=== PATIENT | female | born 1955 | race Caucasian/White ===

== ENCOUNTER 2017-02-15 11:09 | Observation (INO) | payer OTHER ==
[2017-02-15] MEDS ORDERED: Albuterol/Ipratropium 3.0-0.5 MG/3 ML Neb Soln NEB ONE (11:55)
[2017-02-15] MEDS ORDERED: Albuterol/Ipratropium 3.0-0.5 MG/3 ML Neb Soln ONE (12:08)
[2017-02-15] MEDS ORDERED: Ondansetron 4 MG Tab.DIS PO PRN (12:54)
[2017-02-15] MEDS ORDERED: Sodium Chloride 0.9% 10 ML Syringe FLUSH PRN (12:54)
[2017-02-15] MEDS ORDERED: Temazepam 15 MG Cap PO PRN (12:54)
[2017-02-15] MEDS ORDERED: Loratadine 10 MG Tab PO PRN (12:59)
[2017-02-15] MEDS: Albuterol/Ipratropium 3.0-0.5 MG/3 ML Neb Soln NEB SCH ×3 (13:21→20:42)
[2017-02-15] MEDS: cefTRIAXone 1 GM Vial IVPUSH SCH (13:26)
[2017-02-15] MEDS: Azithromycin 500 MG in Sodium Chloride 0.9% 250 ML IV SCH (13:26)
[2017-02-15 13:39] LABS: CHLORIDE,CL 106 mEq/L (98-106); SODIUM,NA 143 mEq/L (136-145)
[2017-02-15] MEDS: POTASSIUM 20 MEQ PO SCH (17:20)
[2017-02-15] MEDS ORDERED: Potassium Chloride 10 MEQ Tab.ER PO SCH (17:30)
[2017-02-15] MEDS: OMEPRAZOLE 40 MG PO SCH (19:55)
[2017-02-15] MEDS: ADVAIR INH SCH (20:00)
[2017-02-16] MEDS ORDERED: Aspirin 81 MG Tab.EC PO SCH ×2 (08:00→20:00)
[2017-02-16] MEDS: POTASSIUM 20 MEQ PO SCH ×2 (08:48→19:40)
[2017-02-16] MEDS: FUROSEMIDE 20 MG PO SCH (08:49)
[2017-02-16] MEDS: PANTOPRAZOLE 40 MG PO SCH (08:49)
[2017-02-16] MEDS: Multivitamin Tab PO SCH (08:49)
[2017-02-16] MEDS: ADVAIR INH SCH ×2 (08:50→20:06)
[2017-02-16] MEDS: cefTRIAXone 1 GM Vial IVPUSH SCH (08:57)
[2017-02-16] MEDS: Azithromycin 500 MG in Sodium Chloride 0.9% 250 ML IV SCH (08:57)
[2017-02-16] MEDS: Albuterol/Ipratropium 3.0-0.5 MG/3 ML Neb Soln NEB SCH ×4 (10:12→20:06)
--- NOTE | 2017-02-16 10:42 | PN ---
DATE: 02/16/2017 S: Cinda is doing fine. Vital signs have been stable. She has not spiked any temps. Blood pressure is good. She is saturating in the mid 90s to upper 90s on room air. She feels less cough, less shortness of breath. She was up and walking. Some lab work is reviewed. Other than being anemic which is chronic on her, she does have an INR which was elevated at 4.8, and her Coumadin has been on hold. O: GENERAL: On exam, she is pleasant, alert, and cooperative. HEENT: Grossly benign. NECK: Supple. Veins are flat. LUNGS: Sounds are improved with better air movement. Still there is some expiratory wheezing. No rales. CARDIAC: Tones are regular. ABDOMEN: Soft. No peripheral edema is seen. ASSESSMENT: BRONCHITIS WITH ASTHMA EXACERBATION. P: Plan for one more day. We will have her up and ambulating. If she is doing well, home tomorrow. ELVA/DAKOTA /[id number]
[2017-02-16] MEDS: Acetaminophen 325 MG Tab PO PRN ×2 (13:23→22:59)
[2017-02-16] MEDS: OMEPRAZOLE 40 MG PO SCH (19:41)
[2017-02-16] MEDS ORDERED: PHYTONADIONE 100 MCG PO SCH (20:00)
[2017-02-16] MEDS ORDERED: WARFARIN 2.5 MG PO SCH (20:00)
[2017-02-17] MEDS: cefTRIAXone 1 GM Vial IVPUSH SCH (07:48)
[2017-02-17] MEDS: PANTOPRAZOLE 40 MG PO SCH (07:55)
[2017-02-17] MEDS: FUROSEMIDE 20 MG PO SCH (07:55)
[2017-02-17] MEDS: POTASSIUM 20 MEQ PO SCH (07:55)
[2017-02-17] MEDS: Multivitamin Tab PO SCH (07:56)
[2017-02-17] MEDS: Azithromycin 500 MG in Sodium Chloride 0.9% 250 ML IV SCH (07:57)
[2017-02-17 08:06] VITALS: BP 141/92
[2017-02-17] MEDS: ADVAIR INH SCH (08:47)
[2017-02-17] MEDS: Albuterol/Ipratropium 3.0-0.5 MG/3 ML Neb Soln NEB SCH (08:47)
[2017-02-17] MEDS ORDERED: WARFARIN 2.5 MG PO SCH (20:00)
--- NOTE | 2017-02-20 07:21 | DISCH ---
ADMISSION DIAGNOSIS: Asthma exacerbation. DISCHARGE DIAGNOSIS: 1. ASTHMA EXACERBATION. 2. COAGULOPATHY SECONDARY TO COUMADIN USE. HISTORY: The patient is a 61-year-old female, well known to me, with a history of asthma. She also has a recent mitral valve replacement and is anticoagulated for that. She presented to my office with increasing cough, wheezing, and shortness of breath. Workup showed a normal white count, and CRP. Chest x-ray showed no pneumonia. She did have an elevated Coumadin level at 4.88. She was ultimately admitted to the hospital for asthma exacerbation. HOSPITAL COURSE: The patient was put on IV antibiotics. Started on steroids and nebulizers and she had a wonderful response. She has been saturating well and running no temps and for the most part, is up ambulating without any difficulty. She is on DuoNeb twice a day and has finished 3 days of Zithromax, 3 days of Rocephin. We are not going to send her home on any antibiotics or steroids. She will resume her Coumadin. We did hold it while she was here due to her elevated INR. Her home medications will be unchanged. We will see her back in the clinic in 2 weeks for followup. She does have a nebulizer at home should she need it. COMPLICATIONS: During her stay were none. CONSULTATIONS: RT. DISPOSITION: Discharged home. LYNETTE /[id number]
== END 2017-02-17 10:15 | disposition home or self-care (01) ==
LOC: CC.MS 11:09 → UNDOADMOB 11:09 → CC.MS 12:55 → UNDOADMOB 12:55
PROVIDERS: ADMIT Family Medicine; ATTEND Family Medicine
DX: J20.9 Acute bronchitis, unspecified (principal); J45.901 Unspecified asthma with (acute) exacerbation; Z95.2 Presence of prosthetic heart valve; I10 Essential (primary) hypertension; I48.91 Unspecified atrial fibrillation
CPT/HCPCS: 36415; 71020; 80048; 84484; 85025; 85610; 86140; 87070; 87205; 93005; 94640; A9270; J0456; J0696; J7050; 96365; 96366; 96375; 96376; G0378

== ENCOUNTER 2017-08-06 17:19 | Emergency (ER) | payer OTHER ==
[2017-08-06 17:25] VITALS: BP 151/75
--- NOTE | 2017-08-06 17:52 | EDM.PDOC ---
ED HPI GENERAL MEDICAL PROBLEM - General Chief Complaint: General Stated Complaint: (L) wrist injury Time Seen by Provider: 08/06/17 17:25 Source of Information: Reports: Patient History Limitations: Reports: No Limitations - History of Present Illness INITIAL COMMENTS - FREE TEXT/NARRATIVE: Patient tripped and fell while going up the stairs at home. She landed on an outstretched left forearm and now has pain and a wrist deformity. She has abrasions on her right forearm. Patient is on Coumadin for an artificial heart valve. Denies any dizziness or lightheadedness. Denies hitting head or loss of consciousness. 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 (see below) (pt applied dressings to bleeding abrasions on right forearm) Left Wrist Pain Score (Numeric/FACES): 5 - Related Data Allergies Allergy/AdvReac Type Severity Reaction Status Date / Time erythromycin ethylsuccinate Allergy Rash Verified 08/06/17 17:20 [From [facility] Home Meds: Home Meds Cyanocobalamin (Vitamin B-12) [Vitamin B-12] 1,000 mcg PO DAILY 10/23/15 [ History] Multivitamin [Multivitamins] 1 tab PO DAILY 10/23/15 [History] Omeprazole [Prilosec] 40 mg PO BEDTIME 10/23/15 [History] Albuterol Sulfate [Proair Hfa] 2 puff IH Q4H PRN 04/06/16 [History] Pantoprazole [ProTONIX] 40 mg PO ACBREAKFAST 04/06/16 [History] Furosemide [Lasix] 20 mg PO DAILY 06/22/16 [History] Aspirin [Halfprin] 81 mg PO BEDTIME 02/15/17 [History] Fluticasone/Salmeterol [Advair Diskus 500-50] 1 puff INH BID 02/15/17 [History] Loratadine 10 mg PO DAILY PRN 02/15/17 [History] Magnesium 250 mg PO DAILY 02/15/17 [History] Phytonadione [Vitamin K] 100 mcg PO BEDTIME 02/15/17 [History] Potassium Chloride [Klor-Con M20] 30 meq PO BID 02/15/17 [History] Warfarin [Coumadin] 2.5 mg PO MOWEFR #0 02/17/17 [Rx] Warfarin [Coumadin] 5 mg PO SUTUTHSA #0 02/17/17 [Rx] Past Medical History Cardiovascular History: Reports: Afib, Heart Valve Replacement, Pacemaker Other Cardiovascular History: hypertension prior to gastric bypass; has since resolved Respiratory History: Reports: Asthma Other Respiratory History: sleep apnea prior to gastric bypass; has since resolved Gastrointestinal History: Reports: GI Bleed Other Gastrointestinal History: GIB in September 2015 - treated in [place] [facility] History: Reports: None Musculoskeletal History: Reports: Osteoarthritis Other Musculoskeletal History: OA in knees; total knee replacements Hematologic History: Reports: B12 Deficiency, Iron Deficiency Other Hematologic History: Iron infusion in October 2015; B12 supplements since gastric bypass - Infectious Disease History Infectious Disease History: Reports: None - Past Surgical History HEENT Surgical History: Reports: Tonsillectomy GI Surgical History: Reports: Bariatric Procedure Musculoskeletal Surgical History: Reports: Knee Replacement Social & Family History - Family History Family Medical History: Noncontributory - Tobacco Use Smoking Status *Q: Never Smoker Second Hand Smoke Exposure: No - Caffeine Use Caffeine Use: Reports: Coffee - Recreational Drug Use Recreational Drug Use: No ED ROS GENERAL - Review of Systems Review Of Systems: See Below Constitutional: Reports: No Symptoms HEENT: Reports: No Symptoms Respiratory: Reports: No Symptoms Cardiovascular: Reports: No Symptoms Endocrine: Reports: No Symptoms GI/Abdominal: Reports: No Symptoms : Reports: No Symptoms Musculoskeletal: Reports: Arm Pain (pain swelling and deformity left forearm and wrist), Hand Pain, Joint Swelling Skin: Reports: Wound (abrasions and skin tears on right forearm) Neurological: Reports: No Symptoms. Denies: Confusion, Dizziness, Syncope, Difficulty Walking, Weakness Psychiatric: Reports: No Symptoms Hematologic/Lymphatic: Reports: No Symptoms Immunologic: Reports: No Symptoms ED EXAM, GENERAL - Physical Exam Exam: See Below Exam Limited By: No Limitations General Appearance: Alert, WD/WN, No Apparent Distress Eye Exam: Bilateral Eye: EOMI, PERRL Ears: Normal External Exam, Normal Canal, Hearing Grossly Normal, Normal TMs Ear Exam: Bilateral Ear: Auricle Normal, Canal Normal, TM normal Nose: Normal Inspection, Normal Mucosa, No Blood Throat/Mouth: Normal Inspection, Normal Lips, Normal Teeth, Normal Gums, Normal Oropharynx, Normal Voice, No Airway Compromise Head: Atraumatic, Normocephalic Neck: Normal Inspection, Supple, Non-Tender, Full Range of Motion Respiratory/Chest: No Respiratory Distress, Lungs Clear, Normal Breath Sounds, No Accessory Muscle Use, Chest Non-Tender Cardiovascular: Normal Peripheral Pulses, Regular Rate, Rhythm, No Edema, No Gallop, No JVD, No Murmur, No Rub, Other (hsistory of a-fib but rate is regular) Peripheral Pulses: 3+: Radial (R), Femoral (L) GI/Abdominal: Normal Bowel Sounds, Soft, Non-Tender, No Organomegaly, No Distention, No Abnormal Bruit, No Mass (Female) Exam: Deferred Rectal (Female) Exam: Deferred Back Exam: Normal Inspection, Full Range of Motion, NT Extremities: Other (Bilat lower extremities are within normal limits for this patient with no injuries noted. LUE has brusing and deformity left inner distal forearm. Limted range of motion due to pain but CMS intact in left hand. No injuries noted with either shoulder or either elbow. Right forearm has mid and distal forearm abrasions and bruising with several skin tears on the lateral forearm with skin tear edges well approximated. Bleeding is well controlled and CMS intact in right hand.) Neurological: Alert, Oriented, CN II-XII Intact, Normal Cognition, Normal Gait, Normal Reflexes, No Motor/Sensory Deficits Psychiatric: Normal Affect, Normal Mood Skin Exam: Warm, Dry, Intact, Normal Color, No Rash Front/Back Body Diagram: 1 - sin tears and abrasions 2 - skin tears and abrasions Course - Vital Signs Last Recorded V/S: Last Vital Signs Temp 36.2 C 08/06/17 17:22 Pulse 70 08/06/17 17:22 Resp 18 08/06/17 17:22 BP 151/75 H 08/06/17 17:22 Pulse Ox 98 08/06/17 17:22 - Orders/Labs/Meds Orders: Active Orders 24 hr Category Date Time Status Wrist Comp Min 3V Lt [CR] Stat Exams 08/06/17 17:57 Taken Meds: Medications Discontinued Medications Generic Name Dose Route Start Last Admin Trade Name Sue PRN Reason Stop Dose Admin Hydrocodone Bitart/Acetaminophen 3 packet 08/06/17 18:26 08/06/17 18:32 Take Home: Acetaminophen/Hydrocod, 2 Tab Pack PO 08/06/17 18:27 3 packet ONETIME ONE Administration - Radiology Interpretation Free Text/Narrative:: Mildly impacted and displace distal radius fracture and lateral ulnar styloid fracture left arm with radiology over read pending. - Re-Assessments/Exams Free Text/Narrative Re-Assessment/Exam: 08/06/17 18:28 Skin tears and abrasions to right forearm cleansed and dressed with steristrips , gauze and coban. Left forearm gently reduced with counter traction and sugar tong spint applied with fiberglass 3x35 and 2 hailey wraps. Area reduced easily with countertraction. Mild deformity still present but less prominent. Bruising noted in left inner wrist over deformity area. CMS remains excellent after splinting to left forearm. Patient instructed on care of splint and skin tears. See discharge notes below. patient voiced understanding. We will arrange for an ortho referral tomorrow and notify the patient of time and date. Departure - Departure Time of Disposition: 18:40 Disposition: Home, Self-Care 01 Condition: Good Clinical Impression: Skin tear Distal radial fracture Qualifiers: Encounter type: initial encounter Fracture type: closed Fracture morphology: unspecified fracture morphology Laterality: left Qualified Code(s): S52.502A - Unspecified fracture of the lower end of left radius, initial encounter for closed fracture - Discharge Information Instructions: Abrasion, Radial Fracture, Cast or Splint Care, [id number] Referrals: Eduardo Hendricks MD [Primary Care Provider] - Forms: ED Department Discharge Additional Instructions: keep arm elevated. Leave splint on. Ice frequently. We will contact you tomorrow with more information on an orthopedic referral. Use hydrocodone/ acetaminophin 5/325 one or two tablets every 4-6 hours as needed for pain. Do not drive till you know how it affects you. Watch for constipation. do not mix with alcohol and remember hydrocodone has addictive potential. Watch for infection in the skin tears on your left forearm. - My Orders Last 24 Hours: My Active Orders 08/06/17 17:57 Wrist Comp Min 3V Lt [CR] Stat - Assessment/Plan Last 24 Hours: My Active Orders 08/06/17 17:57 Wrist Comp Min 3V Lt [CR] Stat
[2017-08-06] MEDS ORDERED: Take Home: Acetaminophen/HYDROcodone 325-5 MG, 2 Tab Pack PO ONE (18:26)
== END 2017-08-06 18:42 | disposition home or self-care (01) ==
LOC: CC.ED 17:19
DX: S52.572A Other intraarticular fracture of lower end of left radius, initial encounter for closed fracture (principal); S52.612A Displaced fracture of left ulna styloid process, initial encounter for closed fracture; I48.91 Unspecified atrial fibrillation; J45.909 Unspecified asthma, uncomplicated; M19.90 Unspecified osteoarthritis, unspecified site; I10 Essential (primary) hypertension; Z88.1 Allergy status to other antibiotic agents; Z79.2 Long term (current) use of antibiotics; Z79.899 Other long term (current) drug therapy; Z79.01 Long term (current) use of anticoagulants; Z95.0 Presence of cardiac pacemaker; Z90.89 Acquired absence of other organs; W01.0XXA Fall on same level from slipping, tripping and stumbling without subsequent striking against object, initial encounter; Y92.009 Unspecified place in unspecified non-institutional (private) residence as the place of occurrence of the external cause
CPT/HCPCS: 25605; 73110; 99283; A9270

== ENCOUNTER 2017-12-03 15:52 | Emergency (ER) | payer OTHER ==
[2017-12-03 16:13] VITALS: BP 153/96
[2017-12-03] MEDS ORDERED: Albuterol/Ipratropium 3.0-0.5 MG/3 ML Neb Soln NEB ONE (16:14)
--- NOTE | 2017-12-03 16:18 | EDM.PDOC ---
ED HPI GENERAL MEDICAL PROBLEM - General Chief Complaint: General Stated Complaint: flu like symptoms, SOB, shaky Time Seen by Provider: 12/03/17 15:55 Source of Information: Reports: Patient History Limitations: Reports: No Limitations - History of Present Illness INITIAL COMMENTS - FREE TEXT/NARRATIVE: This patient is a 62 year old female that presents to the ER. Patient reports that she on monday started feeling bad. She reports having headache, body aches, fever, runny nose, congestion, drainage, productive cough. She reports then this morning at about 8am she began to have chest pressure with more productive cough today. She reports she became more short of breath. 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 She reports that she has also been under a lot of stress at home. Patient is conversing in full and complete sentences without difficulty. She does appear anxious. Onset Date: 11/29/17 Duration: Day(s): (4) Location: Reports: Head, Chest Quality: Reports: Pressure Severity: Moderate Improves with: Reports: None Worsens with: Reports: None Associated Symptoms: Reports: Chest Pain, Cough, cough w sputum, Fever/Chills, Headaches, Malaise, Shortness of Breath, Weakness (generally). 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 Generalized Pain Score (Numeric/FACES): 8 - Related Data Allergies Allergy/AdvReac Type Severity Reaction Status Date / Time erythromycin ethylsuccinate Allergy Rash Verified 12/03/17 16:13 [From [facility] Home Meds: Home Meds Cyanocobalamin (Vitamin B-12) [Vitamin B-12] 1,000 mcg PO DAILY 10/23/15 [ History] Multivitamin [Multivitamins] 1 tab PO DAILY 10/23/15 [History] Omeprazole [Prilosec] 40 mg PO BEDTIME 10/23/15 [History] Albuterol Sulfate [Proair Hfa] 2 puff IH Q4H PRN 04/06/16 [History] Pantoprazole [ProTONIX] 40 mg PO ACBREAKFAST 04/06/16 [History] Furosemide [Lasix] 20 mg PO DAILY 06/22/16 [History] Aspirin [Halfprin] 81 mg PO BEDTIME 02/15/17 [History] Fluticasone/Salmeterol [Advair Diskus 500-50] 1 puff INH BID 02/15/17 [History] Loratadine 10 mg PO DAILY PRN 02/15/17 [History] Magnesium 250 mg PO DAILY 02/15/17 [History] Phytonadione [Vitamin K] 100 mcg PO BEDTIME 02/15/17 [History] Potassium Chloride [Klor-Con M20] 30 meq PO BID 02/15/17 [History] Warfarin [Coumadin] 2.5 mg PO MOWEFR #0 02/17/17 [Rx] Warfarin [Coumadin] 5 mg PO SUTUTHSA #0 02/17/17 [Rx] Past Medical History Cardiovascular History: Reports: Afib, Heart Valve Replacement, Pacemaker Other Cardiovascular History: hypertension prior to gastric bypass; has since resolved Respiratory History: Reports: Asthma Other Respiratory History: sleep apnea prior to gastric bypass; has since resolved Gastrointestinal History: Reports: GI Bleed Other Gastrointestinal History: GIB in September 2015 - treated in [place] [employer] AGENT History: Reports: None Musculoskeletal History: Reports: Osteoarthritis Other Musculoskeletal History: OA in knees; total knee replacements Hematologic History: Reports: B12 Deficiency, Iron Deficiency Other Hematologic History: Iron infusion in October 2015; B12 supplements since gastric bypass - Infectious Disease History Infectious Disease History: Reports: None - Past Surgical History HEENT Surgical History: Reports: Tonsillectomy GI Surgical History: Reports: Bariatric Procedure Musculoskeletal Surgical History: Reports: Knee Replacement Social & Family History - Family History Family Medical History: Noncontributory - Tobacco Use Smoking Status *Q: Never Smoker Second Hand Smoke Exposure: No - Caffeine Use Caffeine Use: Reports: Coffee - Recreational Drug Use Recreational Drug Use: No ED ROS GENERAL - Review of Systems Review Of Systems: See Below Constitutional: Reports: Fever, Chills, Malaise, Weakness (generalized) HEENT: Reports: Rhinitis, Sinus Problem Respiratory: Reports: Shortness of Breath, Pleuritic Chest Pain, Cough, Sputum Cardiovascular: Reports: Chest Pain, Lightheadedness Endocrine: Reports: No Symptoms GI/Abdominal: Reports: No Symptoms : Reports: No Symptoms Musculoskeletal: Reports: Muscle Pain (muscle aches.) Skin: Reports: No Symptoms Neurological: Reports: Headache Psychiatric: Reports: No Symptoms Hematologic/Lymphatic: Reports: No Symptoms Immunologic: Reports: No Symptoms ED EXAM, GENERAL - Physical Exam Exam: See Below Exam Limited By: No Limitations General Appearance: Alert, WD/WN, No Apparent Distress, Anxious Eye Exam: Bilateral Eye: Normal Inspection, PERRL Ears: Normal External Exam, Normal Canal, Hearing Grossly Normal, Normal TMs Ear Exam: Bilateral Ear: Auricle Normal, Canal Normal, TM normal Nose: Normal Inspection, Normal Mucosa, No Blood Throat/Mouth: Normal Inspection, Normal Lips, Normal Gums, Normal Oropharynx, Normal Voice, No Airway Compromise Head: Atraumatic, Normocephalic Neck: Normal Inspection, Supple, Non-Tender, Full Range of Motion Respiratory/Chest: No Respiratory Distress, No Accessory Muscle Use, Decreased Breath Sounds (mildly BUL. ), Rhonchi (BUL.). No: Respiratory Distress Cardiovascular: Normal Peripheral Pulses, Regular Rate, Rhythm, No Edema, No Gallop, No JVD, No Murmur, No Rub GI/Abdominal: Normal Bowel Sounds, Soft, Non-Tender, No Organomegaly, No Distention, No Abnormal Bruit, No Mass, Pelvis Stable Back Exam: Normal Inspection, Full Range of Motion. No: CVA Tenderness (L), CVA Tenderness (R) Extremities: Normal Inspection, Normal Range of Motion, Non-Tender, No Pedal Edema, Normal Capillary Refill Neurological: Alert, Oriented, CN II-XII Intact, Normal Cognition, Normal Gait, No Motor/Sensory Deficits Psychiatric: Normal Mood, Anxious Skin Exam: Warm, Dry, Intact, Normal Color, No Rash Lymphatic: No Adenopathy EKG INTERPRETATION EKG Date: 12/03/17 Time: 16:50 Rate (Beats/Min): 70 EKG Interpretation Comments: Electronic ventricular paced. Course - Vital Signs Last Recorded V/S: Last Vital Signs Temp 97.8 F 12/03/17 16:08 Pulse 70 12/03/17 16:08 Resp 18 12/03/17 16:08 BP 153/96 H 12/03/17 16:08 Pulse Ox 98 12/03/17 16:08 - Orders/Labs/Meds Orders: Active Orders 24 hr Category Date Time Status EKG Documentation Completion [RC] STAT Care 12/03/17 16:31 Active RT Aerosol Therapy [RC] ASDIRECTED Care 12/03/17 16:14 Active Chest 2V [CR] Stat Exams 01/28/18 16:13 Taken CULTURE BLOOD [BC] Stat Lab 12/03/17 16:46 Received CULTURE BLOOD [BC] Stat Lab 12/03/17 16:46 Received Blood Culture x2 Reflex Set [OM.PC] Stat Oth 12/03/17 16:14 Ordered Labs: Laboratory Tests 12/03/17 12/03/17 12/03/17 Range/Units 16:13 16:13 16:14 WBC 5.8 (5.0-10.0) 10^3/uL RBC 4.75 (4.00-5.50) 10^6/uL Hgb 12.1 (12.0-16.0) g/dL Hct 37.2 (37.0-47.0) % MCV 78.3 L (82.0-94.0) fL MCH 25.5 L (27.0-32.0) pg MCHC 32.5 L (33.0-38.0) g/dL RDW Coeff of Mookie 18.4 H (11.0-15.0) % Plt Count 193 (150-400) 10^3/uL Neut % (Auto) 65.1 (35-85) % Lymph % (Auto) 23.3 (10-55) % [place] % (Auto) 10.6 (0-16) % Eos % (Auto) 0.3 (0-5) % Baso % (Auto) 0.7 (0-3) % Neut # (Auto) 3.74 (1.80-7.00) 10^3/uL Lymph # (Auto) 1.34 (1.00-4.80) 10^3/uL [place] # (Auto) 0.61 (0.00-0.80) 10^3/uL Eos # (Auto) 0.02 (0.00-0.45) 10^3/uL Baso # (Auto) 0.04 10^3/uL PT (9.7-12.3) SEC INR (0.92-1.18) D-Dimer, Quantitative (0.00-0.50) Sodium 138 (136-145) mEq/L Potassium 3.2 L (3.5-5.0) mEq/L Chloride 102 (98-106) mEq/L Carbon Dioxide 24 (21-32) mmol/L BUN 11 (7-18) mg/dL Creatinine 0.8 (0.6-1.0) mg/dL Est Cr Clr Drug Dosing 63.77 mL/min Estimated GFR (MDRD) > 60 (>=60) mL/min Glucose 123 H D (75-99) mg/dL Lactic Acid 1.9 (0.4-2.0) mmol/L Calcium 9.4 (8.4-10.1) mg/dL Total Bilirubin 0.9 (0.0-1.0) mg/dL AST 31 (15-37) U/L ALT 20 (12-78) U/L Alkaline Phosphatase 94 (46-116) U/L Troponin I < 0.017 (0.00-0.06) ng/mL C-Reactive Protein (0.2-0.8) mg/dL NT-Pro-B Natriuret Pep 674 (0-1000) pg/mL Total Protein 7.4 (6.4-8.2) g/dL Albumin 3.5 (3.4-5.0) g/dL Urine Color (YELLOW) Urine Appearance (CLEAR) Urine pH (4.5-8.0) Ur Specific [place] (1.003-1.020) Urine Protein (NEGATIVE) mg/dL Urine Glucose (UA) (NEGATIVE) mg/dL Urine Ketones (NEGATIVE) mg/dL Urine Occult Blood (NEGATIVE) Urine Nitrite (NEGATIVE) Urine Bilirubin (NEGATIVE) Urine Urobilinogen (0.2-1.0) EU/dL Ur Leukocyte Esterase (NEGATIVE) Urine RBC (0-5) /HPF Urine WBC (0-5) /HPF 12/03/17 12/03/17 12/03/17 Range/Units 16:18 16:24 17:09 WBC (5.0-10.0) 10^3/uL RBC (4.00-5.50) 10^6/uL Hgb (12.0-16.0) g/dL Hct (37.0-47.0) % MCV (82.0-94.0) fL MCH (27.0-32.0) pg MCHC (33.0-38.0) g/dL RDW Coeff of Mookie (11.0-15.0) % Plt Count (150-400) 10^3/uL Neut % (Auto) (35-85) % Lymph % (Auto) (10-55) % [place] % (Auto) (0-16) % Eos % (Auto) (0-5) % Baso % (Auto) (0-3) % Neut # (Auto) (1.80-7.00) 10^3/uL Lymph # (Auto) (1.00-4.80) 10^3/uL [place] # (Auto) (0.00-0.80) 10^3/uL Eos # (Auto) (0.00-0.45) 10^3/uL Baso # (Auto) 10^3/uL PT 62.7 H (9.7-12.3) SEC INR 5.51 H* (0.92-1.18) D-Dimer, Quantitative 0.44 (0.00-0.50) Sodium (136-145) mEq/L Potassium (3.5-5.0) mEq/L Chloride (98-106) mEq/L Carbon Dioxide (21-32) mmol/L BUN (7-18) mg/dL Creatinine (0.6-1.0) mg/dL Est Cr Clr Drug Dosing mL/min Estimated GFR (MDRD) (>=60) mL/min Glucose (75-99) mg/dL Lactic Acid (0.4-2.0) mmol/L Calcium (8.4-10.1) mg/dL Total Bilirubin (0.0-1.0) mg/dL AST (15-37) U/L ALT (12-78) U/L Alkaline Phosphatase (46-116) U/L Troponin I (0.00-0.06) ng/mL C-Reactive Protein < 0.2 L (0.2-0.8) mg/dL NT-Pro-B Natriuret Pep (0-1000) pg/mL Total Protein (6.4-8.2) g/dL Albumin (3.4-5.0) g/dL Urine Color (YELLOW) Urine Appearance (CLEAR) Urine pH (4.5-8.0) Ur Specific [place] (1.003-1.020) Urine Protein (NEGATIVE) mg/dL Urine Glucose (UA) (NEGATIVE) mg/dL Urine Ketones (NEGATIVE) mg/dL Urine Occult Blood (NEGATIVE) Urine Nitrite (NEGATIVE) Urine Bilirubin (NEGATIVE) Urine Urobilinogen (0.2-1.0) EU/dL Ur Leukocyte Esterase (NEGATIVE) Urine RBC (0-5) /HPF Urine WBC (0-5) /HPF 12/03/17 Range/Units 17:13 WBC (5.0-10.0) 10^3/uL RBC (4.00-5.50) 10^6/uL Hgb (12.0-16.0) g/dL Hct (37.0-47.0) % MCV (82.0-94.0) fL MCH (27.0-32.0) pg MCHC (33.0-38.0) g/dL RDW Coeff of Mookie (11.0-15.0) % Plt Count (150-400) 10^3/uL Neut % (Auto) (35-85) % Lymph % (Auto) (10-55) % [place] % (Auto) (0-16) % Eos % (Auto) (0-5) % Baso % (Auto) (0-3) % Neut # (Auto) (1.80-7.00) 10^3/uL Lymph # (Auto) (1.00-4.80) 10^3/uL [place] # (Auto) (0.00-0.80) 10^3/uL Eos # (Auto) (0.00-0.45) 10^3/uL Baso # (Auto) 10^3/uL PT (9.7-12.3) SEC INR (0.92-1.18) D-Dimer, Quantitative (0.00-0.50) Sodium (136-145) mEq/L Potassium (3.5-5.0) mEq/L Chloride (98-106) mEq/L Carbon Dioxide (21-32) mmol/L BUN (7-18) mg/dL Creatinine (0.6-1.0) mg/dL Est Cr Clr Drug Dosing mL/min Estimated GFR (MDRD) (>=60) mL/min Glucose (75-99) mg/dL Lactic Acid (0.4-2.0) mmol/L Calcium (8.4-10.1) mg/dL Total Bilirubin (0.0-1.0) mg/dL AST (15-37) U/L ALT (12-78) U/L Alkaline Phosphatase (46-116) U/L Troponin I (0.00-0.06) ng/mL C-Reactive Protein (0.2-0.8) mg/dL NT-Pro-B Natriuret Pep (0-1000) pg/mL Total Protein (6.4-8.2) g/dL Albumin (3.4-5.0) g/dL Urine Color Yellow (YELLOW) Urine Appearance Clear (CLEAR) Urine pH 8.5 H (4.5-8.0) Ur Specific [place] 1.015 (1.003-1.020) Urine Protein Trace H (NEGATIVE) mg/dL Urine Glucose (UA) Negative (NEGATIVE) mg/dL Urine Ketones Trace H (NEGATIVE) mg/dL Urine Occult Blood Negative (NEGATIVE) Urine Nitrite Negative (NEGATIVE) Urine Bilirubin Negative (NEGATIVE) Urine Urobilinogen 0.2 (0.2-1.0) EU/dL Ur Leukocyte Esterase Negative (NEGATIVE) Urine RBC Not seen (0-5) /HPF Urine WBC Not seen (0-5) /HPF Meds: Medications Discontinued Medications Generic Name Dose Route Start Last Admin Trade Name Freq PRN Reason Stop Dose Admin Albuterol/Ipratropium 3 ml 12/03/17 16:14 12/03/17 16:23 Duoneb 3.0-0.5 Mg/3 Ml NEB 12/03/17 16:15 3 ml ONETIME ONE Administration Ceftriaxone Sodium 1 gm 12/03/17 17:32 Rocephin IM 12/03/17 17:33 ONETIME ONE Methylprednisolone Sodium Succinate 125 mg 12/03/17 17:32 Solu-Medrol IM 12/03/17 17:33 NOW STA - Radiology Interpretation Free Text/Narrative:: CXR: No infiltrate, no edema. no acute changes. - Re-Assessments/Exams Free Text/Narrative Re-Assessment/Exam: 12/03/17 17:27 INR is 5.51. Patient has a history of INR elevation. She is currently not having symptoms of bleeding. I will have her hodl coumadin for a couple of days and recheck INR with PCP. The patients other labs are unremarkable. Her ekg is paced, her troponin is negative, d-dimer negative, bnp negative. She has no leukocytosis. Urine is negative from infection. Her CMP has mild hypokalemia, but otherwise unremarkable. I will treat the patient for a URI and discharge home. Stable. Departure - Departure Time of Disposition: 17:29 Disposition: Home, Self-Care 01 Condition: Fair Clinical Impression: Anxiety Acute bronchitis Qualifiers: Bronchitis organism: unspecified organism Qualified Code(s): J20.9 - Acute bronchitis, unspecified - Discharge Information Instructions: Acute Bronchitis Referrals: Eduardo Hendricks MD [Primary Care Provider] - Forms: ED Department Discharge Additional Instructions: Followup with your primary care provider Return to the ER for worsening of condition or any emergent concerns Increase fluids Tylenol or Motrin for fever Cefdinir 300mg 1pill twice a day for 10 days #20 no refill Medrol Dose Pack as directed #1 no refill No Coumadin for and Monday. Recheck your INR on Monday. - My Orders Last 24 Hours: My Active Orders 12/03/17 16:13 Chest 2V [CR] Stat 12/03/17 16:14 RT Aerosol Therapy [RC] ASDIRECTED Blood Culture x2 Reflex Set [OM.PC] Stat 12/03/17 16:31 EKG Documentation Completion [RC] STAT 12/03/17 16:46 CULTURE BLOOD [BC] Stat CULTURE BLOOD [BC] Stat - Assessment/Plan Last 24 Hours: My Active Orders 12/03/17 16:13 Chest 2V [CR] Stat 12/03/17 16:14 RT Aerosol Therapy [RC] ASDIRECTED Blood Culture x2 Reflex Set [OM.PC] Stat 12/03/17 16:31 EKG Documentation Completion [RC] STAT 12/03/17 16:46 CULTURE BLOOD [BC] Stat CULTURE BLOOD [BC] Stat Plan: PLEASE SEE RN NOTE FOR PFSH.
[2017-12-03 17:07] LABS: CHLORIDE,CL 102 mEq/L (98-106); SODIUM,NA 138 mEq/L (136-145)
[2017-12-03] MEDS ORDERED: cefTRIAXone 1 GM Vial IM ONE (17:32)
[2017-12-03] MEDS ORDERED: methylPREDNISolone Sodium Succinate 125 MG/2 ML SDV IM STA (17:32)
== END 2017-12-03 18:15 | disposition home or self-care (01) ==
LOC: CC.ED 15:52
DX: J20.9 Acute bronchitis, unspecified (principal); F41.9 Anxiety disorder, unspecified; I48.91 Unspecified atrial fibrillation; J45.909 Unspecified asthma, uncomplicated; Z79.01 Long term (current) use of anticoagulants; Z79.82 Long term (current) use of aspirin; Z79.899 Other long term (current) drug therapy; Z88.1 Allergy status to other antibiotic agents
CPT/HCPCS: 36415; 71046; 80053; 81001; 83605; 83880; 84484; 85025; 85379; 85610; 86140; 87040; 87804; 93005; 94640; 96372; 99284; J0696; J2930

== ENCOUNTER 2018-04-09 09:48 | Emergency (ER) | payer OTHER ==
[2018-04-09 10:06] VITALS: BP 101/62
--- NOTE | 2018-04-09 10:30 | EDM.PDOC ---
ED HPI GENERAL MEDICAL PROBLEM - General Chief Complaint: Gastrointestinal Problem Stated Complaint: PASSING BLOOD AND FEELING FAINT Time Seen by Provider: 04/09/18 10:15 Source of Information: Reports: Patient History Limitations: Reports: No Limitations - History of Present Illness INITIAL COMMENTS - FREE TEXT/NARRATIVE: Patient presents today with complaints of GI Bleed. She has had 3 episodes of bleeding this am. States is dark red blood. Has mild abdominal cramping. Feels lightheaded. Relates that she was hospitalized in February for a hematoma in her groin that they felt was related to a bleed by her gastric bypass site. She did have melena at that time but patient relates the bleeding wasn't as significant as it is right now. Patient denies any nausea or vomiting but does state she hasn't had any appetite today. Had a normal BM yesterday. Is on Coumadin, did not take today. Also on Vitamin K. She was seen by cardiology in [place] at that time and was discharged home on Coumadin and BID Prilosec. Had been doing well again until this am. Onset: Today, Sudden Duration: Hour(s): Location: Reports: Abdomen Quality: Reports: Ache Severity: Mild Associated Symptoms: Reports: Loss of Appetite. Denies: Fever/Chills, Headaches , Nausea/Vomiting, Shortness of Breath - Related Data Allergies Allergy/AdvReac Type Severity Reaction Status Date / Time erythromycin ethylsuccinate Allergy Rash Verified 12/03/17 16:13 [From [facility] Home Meds: Home Meds Cyanocobalamin (Vitamin B-12) [Vitamin B-12] 1,000 mcg PO DAILY 10/23/15 [ History] Multivitamin [Multivitamins] 1 tab PO DAILY 10/23/15 [History] Omeprazole [Prilosec] 40 mg PO BEDTIME 10/23/15 [History] Albuterol Sulfate [Proair Hfa] 2 puff IH Q4H PRN 04/06/16 [History] Pantoprazole [ProTONIX] 40 mg PO ACBREAKFAST 04/06/16 [History] Furosemide [Lasix] 20 mg PO DAILY 06/22/16 [History] Aspirin [Halfprin] 81 mg PO BEDTIME 02/15/17 [History] Fluticasone/Salmeterol [Advair Diskus 500-50] 1 puff INH BID 02/15/17 [History] Loratadine 10 mg PO DAILY PRN 02/15/17 [History] Magnesium 250 mg PO DAILY 02/15/17 [History] Phytonadione [Vitamin K] 100 mcg PO BEDTIME 02/15/17 [History] Potassium Chloride [Klor-Con M20] 30 meq PO BID 02/15/17 [History] Warfarin [Coumadin] 2.5 mg PO MOWEFR #0 02/17/17 [Rx] Warfarin [Coumadin] 5 mg PO SUTUTHSA #0 02/17/17 [Rx] Past Medical History HEENT History: Reports: Impaired Vision Other HEENT History: PATIENT WEARS GLASSSES Cardiovascular History: Reports: Afib, Heart Valve Replacement, Pacemaker Other Cardiovascular History: hypertension prior to gastric bypass; has since resolved Respiratory History: Reports: Asthma Other Respiratory History: sleep apnea prior to gastric bypass; has since resolved Gastrointestinal History: Reports: GI Bleed Other Gastrointestinal History: GIB in September 2015 - treated in [place] [employer] History: Reports: None Musculoskeletal History: Reports: Osteoarthritis Other Musculoskeletal History: OA in knees; total knee replacements Hematologic History: Reports: B12 Deficiency, Iron Deficiency Other Hematologic History: Iron infusion in October 2015; B12 supplements since gastric bypass - Infectious Disease History Infectious Disease History: Reports: None - Past Surgical History HEENT Surgical History: Reports: Tonsillectomy GI Surgical History: Reports: Bariatric Procedure Musculoskeletal Surgical History: Reports: Knee Replacement Social & Family History - Family History Family Medical History: Noncontributory - Caffeine Use Caffeine Use: Reports: Coffee ED ROS GENERAL - Review of Systems Review Of Systems: See Below Constitutional: Reports: Malaise, Weakness, Decreased Appetite. Denies: Fever, Chills HEENT: Reports: No Symptoms Respiratory: Denies: Shortness of Breath, Cough Cardiovascular: Denies: Chest Pain, Dyspnea on Exertion Endocrine: Reports: Fatigue GI/Abdominal: Reports: Abdominal Pain, Bloody Stool, Diarrhea, Decreased Appetite. Denies: Nausea, Vomiting : Reports: No Symptoms Musculoskeletal: Reports: No Symptoms Skin: Reports: No Symptoms Neurological: Reports: No Symptoms ED EXAM, GI/ABD - Physical Exam Exam: See Below Exam Limited By: No Limitations General Appearance: Alert, WD/WN, No Apparent Distress Ears: Normal External Exam, Normal TMs Nose: Normal Inspection, Normal Mucosa, No Blood Throat/Mouth: Normal Inspection, Normal Oropharynx Head: Normocephalic Neck: Normal Inspection, Supple, Non-Tender Respiratory/Chest: No Respiratory Distress, Lungs Clear, Normal Breath Sounds Cardiovascular: Irregularly Irregular GI/Abdominal Exam: Normal Bowel Sounds, Soft, Tender (LLQ) Extremities: Normal Inspection, Normal Capillary Refill Neurological: Alert, Oriented Skin Exam: Warm, Dry Course - Vital Signs Last Recorded V/S: Last Vital Signs Temp 97.9 F 04/09/18 10:05 Pulse 71 04/09/18 10:05 Resp 20 04/09/18 10:05 BP 101/62 04/09/18 10:05 Pulse Ox 100 04/09/18 10:05 - Orders/Labs/Meds Orders: Active Orders 24 hr Category Date Time Status CBC WITH AUTO DIFF [HEME] Timed Lab 04/09/18 14:00 Ordered Lactated Ringers [Ringers, Lactated] 1,000 ml Med 04/09/18 10:45 Active IV ASDIRECTED Medication Orders Lactated Ringer's (Ringers, Lactated) 1,000 mls @ 125 mls/hr IV ASDIRECTED SAMSON Last Admin: 04/09/18 10:44 Dose: 125 mls/hr Labs: Laboratory Tests 04/09/18 04/09/18 04/09/18 Range/Units 10:00 10:08 10:08 WBC 7.6 (5.0-10.0) 10^3/uL RBC 3.93 L (4.00-5.50) 10^6/uL Hgb 10.4 L (12.0-16.0) g/dL Hct 31.6 L (37.0-47.0) % MCV 80.4 L (82.0-94.0) fL MCH 26.5 L (27.0-32.0) pg MCHC 32.9 L (33.0-38.0) g/dL RDW Coeff of Mookie 21.7 H (11.0-15.0) % Plt Count 255 (150-400) 10^3/uL Neut % (Auto) 65.5 (35-85) % Lymph % (Auto) 26.1 (10-55) % [place] % (Auto) 7.1 (0-16) % Eos % (Auto) 0.8 (0-5) % Baso % (Auto) 0.5 (0-3) % Neut # (Auto) 4.96 (1.80-7.00) 10^3/uL Lymph # (Auto) 1.98 (1.00-4.80) 10^3/uL [place] # (Auto) 0.54 (0.00-0.80) 10^3/uL Eos # (Auto) 0.06 (0.00-0.45) 10^3/uL Baso # (Auto) 0.04 10^3/uL PT 66.2 H (9.7-12.3) SEC INR 7.38 H* (0.92-1.18) Sodium 138 (136-145) mEq/L Potassium 4.3 D (3.5-5.0) mEq/L Chloride 102 (98-106) mEq/L Carbon Dioxide 20 L (21-32) mmol/L BUN 16 (7-18) mg/dL Creatinine 1.0 (0.6-1.0) mg/dL Est Cr Clr Drug Dosing 50.37 mL/min Estimated GFR (MDRD) 56 L (>=60) mL/min Glucose 168 H D (75-99) mg/dL Calcium 9.0 (8.4-10.1) mg/dL Total Bilirubin 0.6 (0.0-1.0) mg/dL AST 33 (15-37) U/L ALT 24 (12-78) U/L Alkaline Phosphatase 72 (46-116) U/L C-Reactive Protein 0.2 (0.2-0.8) mg/dL Total Protein 5.7 L (6.4-8.2) g/dL Albumin 3.0 L (3.4-5.0) g/dL Meds: Medications Generic Name Dose Route Start Last Admin Trade Name Freq PRN Reason Stop Dose Admin Lactated Ringer's 1,000 mls @ 125 mls/hr 04/09/18 10:45 04/09/18 10:44 Ringers, Lactated IV 125 mls/hr ASDIRECTED SAMSON Administration Discontinued Medications Generic Name Dose Route Start Last Admin Trade Name Freq PRN Reason Stop Dose Admin Phytonadione 5 mg/ Sodium 50.5 mls @ 100 mls/hr 04/09/18 11:02 Chloride IV 04/09/18 11:32 NOW ONE Pantoprazole Sodium 40 mg 04/09/18 11:29 Protonix Iv IVPUSH 04/09/18 11:30 ONETIME ONE - Re-Assessments/Exams Free Text/Narrative Re-Assessment/Exam: 04/09/18 11:35 Patient has had 2 bloody stools since presentation. First episode was burgundy in nature. Last episode more bright red with clots. Patient feels lightheaded when up. Vital signs are stable at this point. Vitamin K and Protonix ordered. Did contact [facility] and spoke with Dr. Perdomo, hospitalist, about status. Agreed to accept the patient in transfer. ALS arranged. Departure - Departure Time of Disposition: 11:33 Disposition: DC/Tfer to Acute Hospital 02 Condition: Undetermined Clinical Impression: GI bleed Qualifiers: GI bleed type/associated pathology: melena Qualified Code(s): K92.1 - Melena - Discharge Information Forms: ED Department Discharge Additional Instructions: Transfer to [facility] per ALS. Keep NPO. Dr. Perdomo accepted patient in transfer. - My Orders Last 24 Hours: My Active Orders 04/09/18 10:45 Lactated Ringers [Ringers, Lactated] 1,000 ml IV ASDIRECTED 04/09/18 14:00 CBC WITH AUTO DIFF [HEME] Timed - Assessment/Plan Last 24 Hours: My Active Orders 04/09/18 10:45 Lactated Ringers [Ringers, Lactated] 1,000 ml IV ASDIRECTED 04/09/18 14:00 CBC WITH AUTO DIFF [HEME] Timed
[2018-04-09] MEDS ORDERED: Lactated Ringers 1,000 ML IV SCH (10:45)
[2018-04-09] MEDS ORDERED: Phytonadione 5 MG in Sodium Chloride 0.9% 50 ML IV ONE (11:02)
[2018-04-09] MEDS ORDERED: Pantoprazole 40 MG Vial IVPUSH ONE (11:29)
== END 2018-04-09 12:35 ==
LOC: CC.ED 09:48 → CC.MS 10:26 → UNDOADMIN 10:26 → CC.ED 12:35
DX: K92.1 Melena (principal); Z88.1 Allergy status to other antibiotic agents; Z79.899 Other long term (current) drug therapy; Z79.82 Long term (current) use of aspirin
CPT/HCPCS: 36415; 80053; 85025; 85610; 86140; 96361; 96365; 96375; 99285; C9113; J3430; J7050; J7120

== ENCOUNTER 2018-05-18 09:09 | Emergency (ER) | payer OTHER ==
[2018-05-18 09:21] VITALS: BP 143/93
[2018-05-18] MEDS: Acetaminophen/HYDROcodone 325-5 MG Tab PO ONE (10:20)
--- NOTE | 2018-05-18 11:03 | EDM.PDOC ---
ED HPI GENERAL MEDICAL PROBLEM - General Chief Complaint: Lower Extremity Injury/Pain Stated Complaint: right hip pain, s/p fall Time Seen by Provider: 05/18/18 10:13 - History of Present Illness INITIAL COMMENTS - FREE TEXT/NARRATIVE: Cinda is a 63 year old female who presents to the ED with c/o right hip pain following a fall down three stairs yesterday morning. She reports that the pain has been constant and has worsened somewhat. She reports she is not able to bear weight on her RLE due to the pain. She reports the pain radiates downward to her groin. Denies any numbness or tingling. She denies LOC at the time of fall. Denies hitting her head. 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 Right Hip Pain Score (Numeric/FACES): 8 - Related Data Allergies Allergy/AdvReac Type Severity Reaction Status Date / Time erythromycin ethylsuccinate Allergy Rash Verified 05/18/18 09:21 [From [facility] Home Meds: Home Meds Cyanocobalamin (Vitamin B-12) [Vitamin B-12] 1,000 mcg PO DAILY 10/23/15 [ History] Multivitamin [Multivitamins] 1 tab PO DAILY 10/23/15 [History] Omeprazole [Prilosec] 40 mg PO DAILY 10/23/15 [History] Albuterol Sulfate [Proair Hfa] 2 puff IH Q4H PRN 04/06/16 [History] Furosemide [Lasix] 40 mg PO DAILY 06/22/16 [History] Fluticasone/Salmeterol [Advair Diskus 500-50] 1 puff INH BID PRN 02/15/17 [ History] Loratadine 10 mg PO DAILY PRN 02/15/17 [History] Magnesium 250 mg PO DAILY 02/15/17 [History] Phytonadione [Vitamin K] 100 mcg PO DAILY 02/15/17 [History] Potassium Chloride [Klor-Con M20] 30 meq PO BID 02/15/17 [History] Warfarin [Coumadin] 5 mg PO SUTUWETHSA 06/04/18 [History] Acetaminophen/HYDROcodone [[place] 325-5 MG] 1 tab PO Q6H PRN #15 tablet 05/18/18 [Rx] Warfarin [Coumadin] 7.5 mg PO MO 05/18/18 [History] Past Medical History HEENT History: Reports: Impaired Vision Other HEENT History: PATIENT WEARS GLASSSES Cardiovascular History: Reports: Afib, Heart Valve Replacement, Pacemaker Other Cardiovascular History: hypertension prior to gastric bypass; has since resolved Respiratory History: Reports: Asthma Other Respiratory History: sleep apnea prior to gastric bypass; has since resolved Gastrointestinal History: Reports: GI Bleed Other Gastrointestinal History: GIB in September 2015 - treated in [place] [employer] CUTTER History: Reports: None Musculoskeletal History: Reports: Osteoarthritis Other Musculoskeletal History: OA in knees; total knee replacements Hematologic History: Reports: B12 Deficiency, Iron Deficiency Other Hematologic History: Iron infusion in October 2015; B12 supplements since gastric bypass - Infectious Disease History Infectious Disease History: Reports: None - Past Surgical History HEENT Surgical History: Reports: Tonsillectomy GI Surgical History: Reports: Bariatric Procedure Musculoskeletal Surgical History: Reports: Knee Replacement Social & Family History - Family History Family Medical History: Noncontributory - Tobacco Use Smoking Status *Q: Never Smoker - Caffeine Use Caffeine Use: Reports: None - Recreational Drug Use Recreational Drug Use: No Review of Systems - Review of Systems Review Of Systems: ROS reveals no pertinent complaints other than HPI. ED EXAM, GENERAL - Physical Exam Exam: See Below Exam Limited By: No Limitations General Appearance: Alert, WD/WN, No Apparent Distress Head: Atraumatic, Normocephalic Peripheral Pulses: 2+: Posterior Tibial (R), Dorsalis Pedis (R) Extremities: Normal Inspection, Normal Capillary Refill, Pedal Edema (2+ pretibial pitting edema), Leg Pain, Limited Range of Motion (R hip). No: Joint Swelling, Increased Warmth, Redness Neurological: Alert, Oriented, CN II-XII Intact, No Motor/Sensory Deficits, Abnormal Gait (NWB to RLE) Psychiatric: Normal Affect, Normal Mood Skin Exam: Warm, Dry, Intact, Normal Color, No Rash, Other (scab under chin, small bruise to left hip) Course - Vital Signs Last Recorded V/S: Last Vital Signs Temp 96.5 F 05/18/18 09:18 Pulse 70 05/18/18 09:18 Resp 16 05/18/18 09:18 BP 143/93 H 05/18/18 09:18 Pulse Ox 100 05/18/18 09:18 - Orders/Labs/Meds Orders: Active Orders 24 hr Category Date Time Status Hip Min 2V or 3V w Pelvis Rt [CR] Stat Exams 05/18/18 09:27 Taken Meds: Medications Discontinued Medications Generic Name Dose Route Start Last Admin Trade Name Freq PRN Reason Stop Dose Admin Hydrocodone Bitart/Acetaminophen 1 tab 05/18/18 10:17 05/18/18 10:20 [place] 325-5 Mg PO 05/18/18 10:18 1 tab ONETIME ONE Administration - Re-Assessments/Exams Free Text/Narrative Re-Assessment/Exam: Discussed normal xray results with patient and spouse. Departure - Departure Time of Disposition: 10:57 Disposition: Home, Self-Care 01 Condition: Fair Clinical Impression: Contusion of hip, right Qualifiers: Encounter type: initial encounter Qualified Code(s): S70.01XA - Contusion of right hip, initial encounter Osteoarthritis of right hip Qualifiers: Osteoarthritis type: unspecified Qualified Code(s): M16.11 - Unilateral primary osteoarthritis, right hip - Discharge Information *PRESCRIPTION DRUG MONITORING PROGRAM REVIEWED*: No *COPY OF PRESCRIPTION DRUG MONITORING REPORT IN PATIENT VANESSA: No Prescriptions: Acetaminophen/HYDROcodone [[place] 325-5 MG] 1 tab PO Q6H PRN #15 tablet PRN Reason: Pain Instructions: Hip Pain, Osteoarthritis Referrals: Eduardo Hendricks MD [Primary Care Provider] - Forms: ED Department Discharge Additional Instructions: Alternate ice and heat to affected areas as needed for comfort Better[place] as needed for pain. Use as sparingly as possible. May use Tylenol for less severe pain. Weight bearing as tolerated to RLE Follow up if symptoms worsen or do not improve over the course of the next week - My Orders Last 24 Hours: My Active Orders 05/18/18 09:27 Hip Min 2V or 3V w Pelvis Rt [CR] Stat - Assessment/Plan Last 24 Hours: My Active Orders 05/18/18 09:27 Hip Min 2V or 3V w Pelvis Rt [CR] Stat
== END 2018-05-18 11:10 | disposition home or self-care (01) ==
LOC: CC.ED 09:09
DX: S70.01XA Contusion of right hip, initial encounter (principal); M16.11 Unilateral primary osteoarthritis, right hip; I48.91 Unspecified atrial fibrillation; I10 Essential (primary) hypertension; J45.909 Unspecified asthma, uncomplicated; W10.9XXA Fall (on) (from) unspecified stairs and steps, initial encounter; Z88.1 Allergy status to other antibiotic agents; Z79.899 Other long term (current) drug therapy; Z79.01 Long term (current) use of anticoagulants; Z95.0 Presence of cardiac pacemaker
CPT/HCPCS: 99283; A9270-GY

== ENCOUNTER 2018-10-23 21:16 | Inpatient (IN) | payer BC ==
[2018-10-23] MEDS ORDERED: fentaNYL 100 MCG/2 ML SDV IVPUSH ONE (22:14)
--- NOTE | 2018-10-23 22:25 | EDM.PDOC ---
ED HPI GENERAL MEDICAL PROBLEM - General Chief Complaint: General Stated Complaint: arm pain Time Seen by Provider: 10/23/18 21:25 Source of Information: Reports: Patient History Limitations: Reports: No Limitations, Other - History of Present Illness INITIAL COMMENTS - FREE TEXT/NARRATIVE: Cinda is a 63 yr old female brought into the ED via [facility] with concerns of right arm pain. She states around 6 oclock this evening she had went to the bathroom and when she was coming out of the bathroom she had tripped and fell onto her right arm and face. She admits to drinking 12 - 12 oz cans of [place] today. Admits she started drinking this morning and last drink was around time of fall. She denies any loss of consciousness. States d/t the pain in her right arm her family had called the ambulance. GCS 15 Onset: Today Location: Reports: Lower Extremity, Right. Denies: Head Right Upper Arm Pain Score (Numeric/FACES): 8 - Related Data Allergies Allergy/AdvReac Type Severity Reaction Status Date / Time erythromycin ethylsuccinate Allergy Rash Verified 10/23/18 21:18 [From [facility] Home Meds: Home Meds Cyanocobalamin (Vitamin B-12) [Vitamin B-12] 1,000 mcg PO DAILY 10/23/15 [ History] Multivitamin [Multivitamins] 1 tab PO DAILY 10/23/15 [History] Omeprazole [Prilosec] 40 mg PO DAILY 10/23/15 [History] Albuterol Sulfate [Proair Hfa] 2 puff IH Q4H PRN 04/06/16 [History] Furosemide [Lasix] 40 mg PO DAILY 06/22/16 [History] Fluticasone/Salmeterol [Advair Diskus 500-50] 1 puff INH BID PRN 02/15/17 [ History] Magnesium 250 mg PO DAILY 02/15/17 [History] Phytonadione [Vitamin K] 100 mcg PO DAILY 02/15/17 [History] Potassium Chloride [Klor-Con M20] 20 meq PO BID 02/15/17 [History] Warfarin [Coumadin] 2.5 mg PO SUTUWETHSA 04/09/18 [History] Acetaminophen/HYDROcodone [[place] 325-5 MG] 1 tab PO Q6H PRN #15 tablet 05/18/18 [Rx] Warfarin [Coumadin] 5 mg PO MO 05/18/18 [History] DULoxetine [Cymbalta] 20 mg PO DAILY 08/20/18 [History] Past Medical History HEENT History: Reports: Impaired Vision Other HEENT History: PATIENT WEARS GLASSSES Cardiovascular History: Reports: Afib, Heart Valve Replacement, Pacemaker Other Cardiovascular History: hypertension prior to gastric bypass; has since resolved Respiratory History: Reports: Asthma Other Respiratory History: sleep apnea prior to gastric bypass; has since resolved Gastrointestinal History: Reports: GI Bleed Other Gastrointestinal History: GIB in September 2015 - treated in [place] [employer] TECHNICIAN History: Reports: None Musculoskeletal History: Reports: Osteoarthritis Other Musculoskeletal History: OA in knees; total knee replacements Hematologic History: Reports: B12 Deficiency, Iron Deficiency Other Hematologic History: Iron infusion in October 2015; B12 supplements since gastric bypass - Infectious Disease History Infectious Disease History: Reports: None - Past Surgical History HEENT Surgical History: Reports: Tonsillectomy Cardiovascular Surgical History: Reports: AICD, Valve Replacement GI Surgical History: Reports: Bariatric Procedure Musculoskeletal Surgical History: Reports: Knee Replacement Social & Family History - Family History Family Medical History: Noncontributory - Tobacco Use Smoking Status *Q: Never Smoker Second Hand Smoke Exposure: No - Caffeine Use Caffeine Use: Reports: None - Alcohol Use Days Per Week of Alcohol Use: 5 Number of Drinks Per Day: 12 Total Drinks Per Week: 60 - Recreational Drug Use Recreational Drug Use: No ED ROS GENERAL - Review of Systems Review Of Systems: See Below Constitutional: Reports: No Symptoms HEENT: Reports: Glasses. Denies: Ear Pain, Eye Pain, Vision Change Respiratory: Reports: No Symptoms. Denies: Shortness of Breath, Wheezing, Cough Cardiovascular: Denies: Chest Pain, Lightheadedness, Palpitations, Syncope GI/Abdominal: Reports: No Symptoms : Reports: No Symptoms Musculoskeletal: Reports: Shoulder Pain (right upper arm), Arm Pain Skin: Reports: No Symptoms Neurological: Denies: Confusion, Dizziness, Headache, Numbness, Paresthesia, Syncope, Tingling, Weakness, Change in Speech ED EXAM, GENERAL - Physical Exam Exam: See Below Exam Limited By: No Limitations General Appearance: Alert, Mild Distress (guarding of right shoulder), Other ( GCS 15, no obvious signs of intoxication) Eye Exam: Bilateral Eye: EOMI, Normal Inspection, PERRL Ears: Normal External Exam, Normal Canal, Hearing Grossly Normal, Normal TMs Nose: Normal Inspection, Nasal Swelling (small superficial abrasion across bridge of nose) Head: Facial Swelling (ecchymosis, hematoma to right inferior orbit. No bony deficits. ) Neck: Normal Inspection, Supple, Non-Tender, Full Range of Motion. No: Tender Midline Respiratory/Chest: No Respiratory Distress, Lungs Clear, Normal Breath Sounds, No Accessory Muscle Use Cardiovascular: Regular Rate, Rhythm, No Edema, No Murmur Peripheral Pulses: 1+: Radial (L), Radial (R) GI/Abdominal: Normal Bowel Sounds, Soft, Non-Tender, No Organomegaly, Pelvis Stable Extremities: Normal Capillary Refill, Arm Pain, Limited Range of Motion (Unable to assess ROM of right arm d/t humeral head fracture). No: Leg Pain Neurological: Alert, Oriented, CN II-XII Intact, Normal Cognition, No Motor/ Sensory Deficits Psychiatric: Normal Affect, Normal Mood Skin Exam: Warm, Dry, Intact, Normal Color, No Rash Course - Vital Signs Last Recorded V/S: Last Vital Signs Temp 98 F 10/23/18 22:15 Pulse 80 10/23/18 22:29 Resp 18 10/23/18 22:29 BP 124/78 10/23/18 22:29 Pulse Ox 100 10/23/18 22:29 - Orders/Labs/Meds Orders: Active Orders 24 hr Category Date Time Status Head wo Cont [CT] Stat Exams 10/23/18 21:23 Taken Shoulder Comp Rt [CR] Stat Exams 10/23/18 21:38 Taken BASIC METABOLIC PANEL,BMP [CHEM] Stat Lab 10/23/18 21:40 Results MAGNESIUM [CHEM] Stat Lab 10/23/18 21:40 Results Magnesium Sulfate/D5W [Magnesium 1 GM in D5W 100 ML] 1 Med 10/23/18 22:38 Active gm Premix Bag 1 bag IV ONETIME Medication Orders Magnesium Sulfate/Dextrose 1 (gm/ Premix) 100 mls @ 100 mls/hr IV ONETIME ONE Stop: 10/23/18 23:37 Labs: Laboratory Tests 10/23/18 10/23/18 10/23/18 Range/Units 21:40 21:40 21:40 WBC 4.2 L (5.0-10.0) 10^3/uL RBC 3.32 L (4.00-5.50) 10^6/uL Hgb 8.3 L (12.0-16.0) g/dL Hct 25.3 L (37.0-47.0) % MCV 76.2 L (82.0-94.0) fL MCH 25.0 L (27.0-32.0) pg MCHC 32.8 L (33.0-38.0) g/dL RDW Coeff of Mookie 16.6 H (11.0-15.0) % Plt Count 182 (150-400) 10^3/uL Neut % (Auto) 66.6 (35-85) % Lymph % (Auto) 22.6 (10-55) % Anderson % (Auto) 8.1 (0-16) % Eos % (Auto) 1.7 (0-5) % Baso % (Auto) 1.0 (0-3) % Neut # (Auto) 2.80 (1.80-7.00) 10^3/uL Lymph # (Auto) 0.95 L (1.00-4.80) 10^3/uL Anderson # (Auto) 0.34 (0.00-0.80) 10^3/uL Eos # (Auto) 0.07 (0.00-0.45) 10^3/uL Baso # (Auto) 0.04 10^3/uL PT 24.8 H (9.7-12.3) SEC INR 2.56 H (0.92-1.18) Carbon Dioxide 24 (21-32) mmol/L BUN 8 (7-18) mg/dL Creatinine 0.6 (0.6-1.0) mg/dL Est Cr Clr Drug Dosing 83.95 mL/min Estimated GFR (MDRD) > 60 (>=60) mL/min Glucose 96 (75-99) mg/dL Calcium 7.7 L (8.4-10.1) mg/dL Magnesium 1.6 L (1.8-2.4) mg/dL Meds: Medications Generic Name Dose Route Start Last Admin Trade Name Freq PRN Reason Stop Dose Admin Magnesium Sulfate/Dextrose 1 100 mls @ 100 mls/hr 10/23/18 22:38 gm/ Premix IV 10/23/18 23:37 ONETIME ONE Discontinued Medications Generic Name Dose Route Start Last Admin Trade Name Sue PRN Reason Stop Dose Admin Fentanyl 50 mcg 10/23/18 22:14 10/23/18 22:18 Sublimaze IVPUSH 10/23/18 22:15 50 mcg ONETIME ONE Administration Departure - Departure Time of Disposition: 22:51 Disposition: Admitted As Inpatient 67 Clinical Impression: Hypomagnesemia Fracture of humeral head, right, closed Qualifiers: Encounter type: initial encounter Qualified Code(s): S42.291A - Other displaced fracture of upper end of right humerus, initial encounter for closed fracture Anemia Qualifiers: Anemia type: unspecified type Qualified Code(s): D64.9 - Anemia, unspecified - Discharge Information Referrals: PCP,Unknown [Primary Care Provider] - Forms: ED Department Discharge - Problem List & Annotations (1) Anemia SNOMED Code(s): 026529786 Code(s): D64.9 - ANEMIA, UNSPECIFIED Status: Acute Current Visit: Yes Qualifiers: Anemia type: unspecified type Qualified Code(s): D64.9 - Anemia, unspecified (2) Fracture of humeral head, right, closed SNOMED Code(s): 636149634 Code(s): S42.291A - OTH DISP FX OF UPPER END OF RIGHT HUMERUS, INIT FOR CLOS FX Status: Acute Current Visit: Yes Qualifiers: Encounter type: initial encounter Qualified Code(s): S42.291A - Other displaced fracture of upper end of right humerus, initial encounter for closed fracture (3) Hypomagnesemia SNOMED Code(s): 937325309 Code(s): E83.42 - HYPOMAGNESEMIA Status: Acute Current Visit: Yes - My Orders Last 24 Hours: My Active Orders 10/23/18 21:23 Head wo Cont [CT] Stat 10/23/18 21:38 Shoulder Comp Rt [CR] Stat 10/23/18 21:40 BASIC METABOLIC PANEL,BMP [CHEM] Stat MAGNESIUM [CHEM] Stat 10/23/18 22:38 Magnesium Sulfate/D5W [Magnesium 1 GM in D5W 100 ML] 1 gm Premix Bag 1 bag IV ONETIME - Assessment/Plan Admission H&P: Please use this note as an admission H&P Last 24 Hours: My Active Orders 10/23/18 21:23 Head wo Cont [CT] Stat 10/23/18 21:38 Shoulder Comp Rt [CR] Stat 10/23/18 21:40 BASIC METABOLIC PANEL,BMP [CHEM] Stat MAGNESIUM [CHEM] Stat 10/23/18 22:38 Magnesium Sulfate/D5W [Magnesium 1 GM in D5W 100 ML] 1 gm Premix Bag 1 bag IV ONETIME Plan: Initial consultation with Dr. Tobar, orthopedic surgeon, at [facility]. Dr. Tobar felt outpatient follow up would be appropriate and recommend waiting a week to see if fracture is able to heal conservatively. Recommended follow up with Dr. Bridges or Dr. Larose next week. Consulted with Dr. Hendricks in regards to Cinda 's present condition and will admit to his services under acute care. Dr. Hendricks recommended starting Protonix 40mg daily and IV Ativan prn incase she has alcohol withdrawals. Will order IV pain medication for pain control. Shoulder immobilizer placed. I spoke with Cinda's daughter, Georgina, via phone and she is very concerned with her mother's alcohol use and requests possible inpatient treatment if available. I updated Georgina per Cinda's request in regards to her current condition.
[2018-10-23] MEDS ORDERED: Morphine 4 MG/ML Syringe ONE (23:01)
[2018-10-23] MEDS ORDERED: MVI, Adult with Vitamin K 10 ML, Folic Acid 1 MG, Thiamine 100 MG in Sodium Chloride 0.... IV ONE ×4 (23:04)
[2018-10-23] MEDS ORDERED: Ondansetron 4 MG/2 ML SDV IV PRN (23:04)
[2018-10-23] MEDS ORDERED: Morphine 4 MG/ML Syringe IVPUSH ONE (23:07)
[2018-10-23] MEDS ORDERED: Non-Formulary Medication 1 Each (Fluticasone/Salmeterol [Advair Diskus 500-50] 1 PUFF) INH PRN (23:12)
[2018-10-23] MEDS ORDERED: Non-Formulary Medication 1 Each (Albuterol 2 PUFF) IH PRN (23:12)
[2018-10-23] MEDS ORDERED: Warfarin 5 MG Tab PO SCH (23:15)
[2018-10-24] MEDS ORDERED: Albuterol 8 GM Inhaler INH PRN (00:03)
[2018-10-24] MEDS ORDERED: Formoterol/Mometasone 200-5 MCG 8.8 GM Inhaler IH PRN (00:08)
[2018-10-24] MEDS: Pantoprazole 40 MG Vial IVPUSH SCH ×2 (00:26→22:23)
[2018-10-24] MEDS: Morphine 2 MG/ML Syringe IVPUSH PRN ×7 (00:26→20:08)
[2018-10-24] MEDS: Acetaminophen/HYDROcodone 325-5 MG Tab PO PRN ×4 (03:47→21:35)
[2018-10-24] MEDS: Multivitamin Tab PO SCH (07:24)
[2018-10-24] MEDS: Furosemide 20 MG Tab PO SCH (07:25)
[2018-10-24] MEDS: Cyanocobalamin (Vitamin B12) 1,000 MCG Tab PO SCH (07:25)
[2018-10-24] MEDS ORDERED: Non-Formulary Medication 1 Each (Potassium Chloride [Klor-Con M20] 20 MEQ) PO SCH (08:00)
[2018-10-24] MEDS ORDERED: Non-Formulary Medication 1 Each (Multivitamin [Multivitamins] 1 TAB) PO SCH (08:00)
[2018-10-24] MEDS ORDERED: Non-Formulary Medication 1 Each (Duloxetine [Cymbalta] 20 MG) PO SCH (08:00)
[2018-10-24] MEDS ORDERED: Potassium Chloride 10 MEQ Tab.ER PO SCH (08:13)
[2018-10-24] MEDS ORDERED: DULoxetine 30 MG Cap PO SCH (09:29)
[2018-10-24 09:35] LABS: CHLORIDE,CL 100 mEq/L (98-106); SODIUM,NA 134 mEq/L (136-145)
[2018-10-24] MEDS: PHYTONADIONE 100 MCG PO SCH (09:52)
[2018-10-24] MEDS: Potassium Chloride 10 MEQ Tab.ER PO SCH ×2 (10:07→20:07)
[2018-10-24] MEDS: DULoxetine 30 MG Cap PO SCH (10:07)
[2018-10-24 10:12] LABS: CHLORIDE,CL 94 mEq/L (98-106); SODIUM,NA 128 mEq/L (136-145)
[2018-10-24] MEDS: Warfarin 2.5 MG Tab PO SCH (11:41)
[2018-10-24] MEDS: LORazepam 2 MG/ML Syringe IVPUSH PRN ×2 (15:15→23:03)
[2018-10-24] MEDS: Docusate Sodium 100 MG Cap PO PRN (20:07)
--- NOTE | 2018-10-24 20:54 | PCM.PN ---
- General Info Date of Service: 10/24/18 Admission Dx/Problem (Free Text): Right Humerus Fracture Hypomagnesemia Anemia Functional Status: Reports: Pain Controlled, Tolerating Diet, Ambulating - Review of Systems General: Reports: Weakness HEENT: Reports: Other ("black eye") Pulmonary: Denies: Shortness of Breath, Cough Cardiovascular: Denies: Chest Pain, Edema, Lightheadedness Gastrointestinal: Denies: Abdominal Pain, Nausea, Vomiting Genitourinary: Reports: No Symptoms Musculoskeletal: Reports: Shoulder Pain, Arm Pain Skin: Reports: Bruising Neurological: Reports: No Symptoms - Patient Data Vitals - Most Recent: Last Vital Signs Temp 97.0 F 10/24/18 16:00 Pulse 79 10/24/18 16:00 Resp 18 10/24/18 16:00 BP 128/60 10/24/18 17:29 Pulse Ox 96 10/24/18 16:00 Weight - Most Recent: 181 lb 12.8 oz Lab Results Last 24 Hours: Laboratory Results - last 24 hr 10/23/18 10/23/18 10/23/18 Range/Units 21:40 21:40 21:40 WBC 4.2 L (5.0-10.0) 10^3/uL RBC 3.32 L (4.00-5.50) 10^6/uL Hgb 8.3 L (12.0-16.0) g/dL Hct 25.3 L (37.0-47.0) % MCV 76.2 L (82.0-94.0) fL MCH 25.0 L (27.0-32.0) pg MCHC 32.8 L (33.0-38.0) g/dL RDW Coeff of Mookie 16.6 H (11.0-15.0) % Plt Count 182 (150-400) 10^3/uL Neut % (Auto) 66.6 (35-85) % Lymph % (Auto) 22.6 (10-55) % [place] % (Auto) 8.1 (0-16) % Eos % (Auto) 1.7 (0-5) % Baso % (Auto) 1.0 (0-3) % Neut # (Auto) 2.80 (1.80-7.00) 10^3/uL Lymph # (Auto) 0.95 L (1.00-4.80) 10^3/uL [place] # (Auto) 0.34 (0.00-0.80) 10^3/uL Eos # (Auto) 0.07 (0.00-0.45) 10^3/uL Baso # (Auto) 0.04 10^3/uL PT 24.8 H (9.7-12.3) SEC INR 2.56 H (0.92-1.18) Sodium 128 L (136-145) mEq/L Potassium 4.0 (3.5-5.0) mEq/L Chloride 94 L (98-106) mEq/L Carbon Dioxide 24 (21-32) mmol/L BUN 8 (7-18) mg/dL Creatinine 0.6 (0.6-1.0) mg/dL Est Cr Clr Drug Dosing 83.95 mL/min Estimated GFR (MDRD) > 60 (>=60) mL/min Glucose 96 (75-99) mg/dL Calcium 7.7 L (8.4-10.1) mg/dL Magnesium 1.6 L (1.8-2.4) mg/dL 10/24/18 10/24/18 Range/Units 08:35 08:42 WBC 5.3 (5.0-10.0) 10^3/uL RBC 3.37 L (4.00-5.50) 10^6/uL Hgb 8.4 L (12.0-16.0) g/dL Hct 26.1 L (37.0-47.0) % MCV 77.4 L (82.0-94.0) fL MCH 24.9 L (27.0-32.0) pg MCHC 32.2 L (33.0-38.0) g/dL RDW Coeff of Mookie 16.4 H (11.0-15.0) % Plt Count 184 (150-400) 10^3/uL Neut % (Auto) 64.6 (35-85) % Lymph % (Auto) 25.8 (10-55) % [place] % (Auto) 7.5 (0-16) % Eos % (Auto) 1.5 (0-5) % Baso % (Auto) 0.6 (0-3) % Neut # (Auto) 3.44 (1.80-7.00) 10^3/uL Lymph # (Auto) 1.37 (1.00-4.80) 10^3/uL [place] # (Auto) 0.40 (0.00-0.80) 10^3/uL Eos # (Auto) 0.08 (0.00-0.45) 10^3/uL Baso # (Auto) 0.03 10^3/uL PT (9.7-12.3) SEC INR (0.92-1.18) Sodium 134 L (136-145) mEq/L Potassium 3.5 (3.5-5.0) mEq/L Chloride 100 (98-106) mEq/L Carbon Dioxide 22 (21-32) mmol/L BUN 6 L (7-18) mg/dL Creatinine 0.7 (0.6-1.0) mg/dL Est Cr Clr Drug Dosing 71.96 mL/min Estimated GFR (MDRD) > 60 (>=60) mL/min Glucose 155 H D (75-99) mg/dL Calcium 8.1 L (8.4-10.1) mg/dL Magnesium 1.8 (1.8-2.4) mg/dL Med Orders - Current: Current Medications Hydrocodone Bitart/Acetaminophen ([place] 325-5 Mg) 1 tab PO Q4H PRN PRN Reason: Pain (moderate 4-6) Last Admin: 10/24/18 16:48 Dose: 1 tab Albuterol (Ventolin Hfa) 0 gm INH Q4H PRN PRN Reason: Shortness of Breath Cyanocobalamin (Vitamin B12) 1,000 mcg PO DAILY [facility] Last Admin: 10/24/18 07:25 Dose: 1,000 mcg Docusate Sodium (Colace) 100 mg PO BID PRN PRN Reason: Constipation Last Admin: 10/24/18 20:07 Dose: 100 mg Duloxetine HCl (Cymbalta) 30 mg PO 0800 [facility] Last Admin: 10/24/18 10:07 Dose: 30 mg Furosemide (Lasix) 40 mg PO DAILY [facility] Last Admin: 10/24/18 07:25 Dose: 40 mg Lorazepam (Ativan) 1 mg IVPUSH Q6H PRN PRN Reason: Withdrawal Symptoms Last Admin: 10/24/18 15:15 Dose: 1 mg Magnesium Oxide (Magnesium Oxide) 250 mg PO DAILY [facility] Last Admin: 10/24/18 07:24 Dose: 250 mg Mometasone Furoate/Formoterol Fumar (Dulera 200-5 Mcg) 2 puff IH BIDRT PRN PRN Reason: SHORTNESS OF BREATH Morphine Sulfate (Morphine) 2 mg IVPUSH Q2H PRN PRN Reason: Pain (severe 7-10) Last Admin: 10/24/18 20:08 Dose: 2 mg Multivitamins/Minerals/Vitamin C (Tab-A-Yuli) 1 tab PO DAILY [facility] Last Admin: 10/24/18 07:24 Dose: 1 tab Non-Formulary Medication (Phytonadione [Vitamin K]) 100 mcg PO DAILY [facility] Last Admin: 10/24/18 09:52 Dose: Not Given Ondansetron HCl (Zofran) 4 mg IV Q4H PRN PRN Reason: Nausea/Vomiting Pantoprazole Sodium (Protonix Iv) 40 mg IVPUSH Q24H [facility] Last Admin: 10/24/18 00:26 Dose: 40 mg Potassium Chloride (Klor-Con 10) 20 meq PO 0800,1999 [facility] Last Admin: 10/24/18 20:07 Dose: 20 meq Warfarin Sodium (Coumadin) 2.5 mg PO SuTuWeThSa@1200 [facility] Last Admin: 10/24/18 11:41 Dose: 2.5 mg Warfarin Sodium (Coumadin) 5 mg PO MoFr@1200 [facility] Discontinued Medications Duloxetine HCl (Cymbalta) 30 mg PO DAILY [facility] Fentanyl (Sublimaze) 50 mcg IVPUSH ONETIME ONE Stop: 10/23/18 22:15 Last Admin: 10/23/18 22:18 Dose: 50 mcg Magnesium Sulfate/Dextrose 1 (gm/ Premix) 100 mls @ 100 mls/hr IV ONETIME ONE Stop: 10/23/18 23:37 Last Admin: 10/23/18 23:06 Dose: 100 mls/hr Multivitamins/Minerals 10 ml/Folic Acid 1 mg/ Thiamine HCl 100 mg/ Sodium Chloride 1,011.2 mls @ 100 mls/hr IV ONETIME ONE Stop: 10/24/18 09:10 Last Admin: 10/24/18 00:28 Dose: 100 mls/hr Morphine Sulfate (Morphine) Confirm Administered Dose 4 mg .ROUTE .STK-MED ONE Stop: 10/23/18 23:02 Last Admin: 10/23/18 23:08 Dose: Not Given Morphine Sulfate (Morphine) 4 mg IVPUSH ONETIME ONE Stop: 10/23/18 23:08 Last Admin: 10/23/18 23:08 Dose: 4 mg Non-Formulary Medication (Albuterol) 2 puff IH Q4H PRN PRN Reason: Shortness of Breath Non-Formulary Medication (Duloxetine [Cymbalta]) 20 mg PO DAILY [facility] Last Admin: 10/24/18 09:47 Dose: Not Given Non-Formulary Medication (Fluticasone/Salmeterol [Advair Diskus 500-50]) 1 puff INH BID PRN PRN Reason: Shortness of Breath Non-Formulary Medication (Multivitamin [Multivitamins]) 1 tab PO DAILY [facility] Non-Formulary Medication (Potassium Chloride [Klor-Con M20]) 20 meq PO BID [facility] Last Admin: 10/24/18 08:38 Dose: Not Given Potassium Chloride (Klor-Con 10) 20 meq PO BID [facility] - Exam General: Alert, Oriented HEENT: Mucous Membr. Moist/[place], Other (ecchymosis to right eye) Neck: Supple Lungs: Clear to Auscultation, Normal Respiratory Effort Cardiovascular: Regular Rate, Regular Rhythm GI/Abdominal Exam: Normal Bowel Sounds, Soft, Non-Tender Extremities: Joint Swelling, Arm Pain, Other (Pain has tenderness to upper humerus/arm. Swelling noted. Immobilizer intact. ) Skin: Warm, Dry Neurological: No New Focal Deficit - Problem List & Annotations (1) Anemia SNOMED Code(s): 941319804 Code(s): D64.9 - ANEMIA, UNSPECIFIED Status: Acute Priority: High Current Visit: Yes Qualifiers: Anemia type: unspecified type Qualified Code(s): D64.9 - Anemia, unspecified (2) Fracture of humeral head, right, closed SNOMED Code(s): 888172649 Code(s): S42.291A - OTH DISP FX OF UPPER END OF RIGHT HUMERUS, INIT FOR CLOS FX Status: Acute Priority: High Current Visit: Yes Qualifiers: Encounter type: initial encounter Qualified Code(s): S42.291A - Other displaced fracture of upper end of right humerus, initial encounter for closed fracture (3) Hypomagnesemia SNOMED Code(s): 095933923 Code(s): E83.42 - HYPOMAGNESEMIA Status: Acute Priority: High Current Visit: Yes - Problem List Review Problem List Initiated/Reviewed/Updated: Yes - My Orders Last 24 Hours: My Active Orders 10/24/18 09:13 Consult to Case Management/Dispatch Clerk [CONS] Routine 10/24/18 13:25 FERRITIN [REF] Routine 10/24/18 Lunch Heart Healthy Diet [DIET] 10/25/18 05:11 C-REACTIVE PROTEIN [CHEM] AM CBC WITH AUTO DIFF [HEME] AM COMPREHENSIVE METABOLIC PN,CMP [CHEM] AM - Assessment Assessment:: Right Humerus Fracture Hypomagnesemia Anemia - Plan Plan:: Patient does admit to discomfort this am to right upper arm. Immobilizer intact. Does have ecchymosis to right eye, denies pain. Has swelling to right upper arm. Rest of exam negative. WBC normal. Hemoglobin 8.4. MCV low. Magnesium 1.8. Sodium 134, more stable today. Banana bag yet infusing at this point. Did discuss patient's alcohol use and effect it is having. Family concerned about this as well. Patient does admit to excessive use at times, has thought about treatment in [place]. Will have social service manager discuss this with her and consider arrangements for this at some point. May need further follow up of humerus fracture prior to this however. Will finish out banana bag. Advised to notify staff if develops anxiety, Ativan if occurs. Repeat labs in am.
[2018-10-25] MEDS: Acetaminophen/HYDROcodone 325-5 MG Tab PO PRN ×4 (04:06→21:02)
[2018-10-25] MEDS: Multivitamin Tab PO SCH (07:41)
[2018-10-25] MEDS: Docusate Sodium 100 MG Cap PO PRN (07:41)
[2018-10-25] MEDS: Furosemide 20 MG Tab PO SCH (07:41)
[2018-10-25] MEDS: Potassium Chloride 10 MEQ Tab.ER PO SCH ×2 (07:41→19:56)
[2018-10-25] MEDS: Cyanocobalamin (Vitamin B12) 1,000 MCG Tab PO SCH (07:41)
[2018-10-25] MEDS: PHYTONADIONE 100 MCG PO SCH (07:42)
[2018-10-25] MEDS: Morphine 2 MG/ML Syringe IVPUSH PRN ×2 (07:42→19:56)
[2018-10-25] MEDS: DULoxetine 30 MG Cap PO SCH (07:47)
[2018-10-25 08:12] LABS: CHLORIDE,CL 101 mEq/L (98-106); SODIUM,NA 137 mEq/L (136-145)
[2018-10-25] MEDS: Pantoprazole 40 MG Vial IVPUSH SCH (09:13)
[2018-10-25] MEDS ORDERED: Sodium Chloride 0.9% 250 ML IV ONE (10:15)
[2018-10-25] MEDS: LORazepam 2 MG/ML Syringe IVPUSH PRN ×2 (10:53→22:43)
--- NOTE | 2018-10-25 12:35 | PCM.PN ---
- General Info Date of Service: 10/25/18 Admission Dx/Problem (Free Text): Right Humerus Fracture Hypomagnesemia Anemia Functional Status: Reports: Tolerating Diet, Ambulating. Denies: Pain Controlled - Review of Systems General: Reports: Weakness, Fatigue HEENT: Reports: No Symptoms Pulmonary: Denies: Shortness of Breath, Cough Cardiovascular: Denies: Chest Pain, Edema, Lightheadedness Gastrointestinal: Denies: Abdominal Pain, Nausea, Vomiting Genitourinary: Reports: No Symptoms Musculoskeletal: Reports: Shoulder Pain, Arm Pain, Joint Pain Skin: Reports: Bruising Neurological: Reports: No Symptoms Psychiatric: Reports: No Symptoms - Patient Data Vitals - Most Recent: Last Vital Signs Temp 97 F 10/25/18 12:00 Pulse 68 10/25/18 12:00 Resp 16 10/25/18 12:00 BP 126/59 L 10/25/18 12:00 Pulse Ox 98 10/25/18 12:00 Weight - Most Recent: 181 lb 12.8 oz I&O - Last 24 Hours: Intake & Output 10/24/18 10/25/18 10/25/18 22:59 06:59 14:59 Intake Total 0 Balance 0 Lab Results Last 24 Hours: Laboratory Results - last 24 hr 10/25/18 10/25/18 10/25/18 Range/Units 07:00 07:41 07:41 WBC 4.6 L (5.0-10.0) 10^3/uL RBC 3.09 L (4.00-5.50) 10^6/uL Hgb 7.6 L* (12.0-16.0) g/dL Hct 24.7 L (37.0-47.0) % MCV 79.9 L (82.0-94.0) fL MCH 24.6 L (27.0-32.0) pg MCHC 30.8 L (33.0-38.0) g/dL RDW Coeff of Mookie 16.4 H (11.0-15.0) % Plt Count 179 (150-400) 10^3/uL Neut % (Auto) 65.0 (35-85) % Lymph % (Auto) 18.2 (10-55) % [place] % (Auto) 13.3 (0-16) % Eos % (Auto) 2.4 (0-5) % Baso % (Auto) 1.1 (0-3) % Neut # (Auto) 2.97 (1.80-7.00) 10^3/uL Lymph # (Auto) 0.83 L (1.00-4.80) 10^3/uL [place] # (Auto) 0.61 (0.00-0.80) 10^3/uL Eos # (Auto) 0.11 (0.00-0.45) 10^3/uL Baso # (Auto) 0.05 10^3/uL Sodium 137 (136-145) mEq/L Potassium 4.0 (3.5-5.0) mEq/L Chloride 101 (98-106) mEq/L Carbon Dioxide 27 (21-32) mmol/L BUN 9 (7-18) mg/dL Creatinine 0.7 (0.6-1.0) mg/dL Est Cr Clr Drug Dosing 71.96 mL/min Estimated GFR (MDRD) > 60 (>=60) mL/min Glucose 105 H D (75-99) mg/dL Calcium 8.3 L (8.4-10.1) mg/dL Total Bilirubin 1.0 (0.0-1.0) mg/dL AST 14 L (15-37) U/L ALT 13 (12-78) U/L Alkaline Phosphatase 99 (46-116) U/L C-Reactive Protein 4.8 H (0.2-0.8) mg/dL Total Protein 6.0 L (6.4-8.2) g/dL Albumin 2.8 L (3.4-5.0) g/dL Blood Type O POSITIVE Gel Antibody Screen Negative Crossmatch See Detail Med Orders - Current: Current Medications Hydrocodone Bitart/Acetaminophen ([place] 325-5 Mg) 2 tab PO Q4H PRN PRN Reason: Pain (moderate 4-6) Last Admin: 10/25/18 09:15 Dose: 2 tab Albuterol (Ventolin Hfa) 0 gm INH Q4H PRN PRN Reason: Shortness of Breath Cyanocobalamin (Vitamin B12) 1,000 mcg PO DAILY [facility] Last Admin: 10/25/18 07:41 Dose: 1,000 mcg Docusate Sodium (Colace) 100 mg PO BID [facility] Duloxetine HCl (Cymbalta) 30 mg PO 0800 [facility] Last Admin: 10/25/18 07:47 Dose: 30 mg Furosemide (Lasix) 40 mg PO DAILY [facility] Last Admin: 10/25/18 07:41 Dose: 40 mg Sodium Chloride (Normal Saline) 250 mls @ 50 mls/hr IV ONETIME ONE Stop: 10/25/18 15:14 Last Admin: 10/25/18 10:55 Dose: 50 mls/hr Iron Sucrose 400 mg/ Sodium (Chloride) 270 mls @ 108 mls/hr IV Q72H [facility] Lorazepam (Ativan) 1 mg IVPUSH Q6H PRN PRN Reason: Withdrawal Symptoms Last Admin: 10/25/18 10:53 Dose: 1 mg Magnesium Oxide (Magnesium Oxide) 250 mg PO DAILY [facility] Last Admin: 10/25/18 07:40 Dose: 250 mg Mometasone Furoate/Formoterol Fumar (Dulera 200-5 Mcg) 2 puff IH BIDRT PRN PRN Reason: SHORTNESS OF BREATH Morphine Sulfate (Morphine) 2 mg IVPUSH Q2H PRN PRN Reason: Pain (severe 7-10) Last Admin: 10/25/18 07:42 Dose: 2 mg Multivitamins/Minerals/Vitamin C (Tab-A-Yuli) 1 tab PO DAILY [facility] Last Admin: 10/25/18 07:41 Dose: 1 tab Non-Formulary Medication (Phytonadione [Vitamin K]) 100 mcg PO DAILY [facility] Last Admin: 10/25/18 07:42 Dose: Not Given Ondansetron HCl (Zofran) 4 mg IV Q4H PRN PRN Reason: Nausea/Vomiting Pantoprazole Sodium (Protonix Iv) 40 mg IVPUSH 0800 [facility] Last Admin: 10/25/18 09:13 Dose: 40 mg Potassium Chloride (Klor-Con 10) 20 meq PO 0800,2000 [facility] Last Admin: 10/25/18 07:41 Dose: 20 meq Warfarin Sodium (Coumadin) 2.5 mg PO SuTuWeThSa@1200 [facility] Last Admin: 10/24/18 11:41 Dose: 2.5 mg Warfarin Sodium (Coumadin) 5 mg PO MoFr@1200 [facility] Discontinued Medications Hydrocodone Bitart/Acetaminophen ([place] 325-5 Mg) 1 tab PO Q4H PRN PRN Reason: Pain (moderate 4-6) Last Admin: 12/20/18 04:06 Dose: 1 tab Docusate Sodium (Colace) 100 mg PO BID PRN PRN Reason: Constipation Last Admin: 10/25/18 07:41 Dose: 100 mg Duloxetine HCl (Cymbalta) 30 mg PO DAILY [facility] Fentanyl (Sublimaze) 50 mcg IVPUSH ONETIME ONE Stop: 10/23/18 22:15 Last Admin: 10/23/18 22:18 Dose: 50 mcg Magnesium Sulfate/Dextrose 1 (gm/ Premix) 100 mls @ 100 mls/hr IV ONETIME ONE Stop: 10/23/18 23:37 Last Admin: 10/23/18 23:06 Dose: 100 mls/hr Multivitamins/Minerals 10 ml/Folic Acid 1 mg/ Thiamine HCl 100 mg/ Sodium Chloride 1,011.2 mls @ 100 mls/hr IV ONETIME ONE Stop: 10/24/18 09:10 Last Admin: 10/24/18 00:28 Dose: 100 mls/hr Morphine Sulfate (Morphine) Confirm Administered Dose 4 mg .ROUTE .STK-MED ONE Stop: 10/23/18 23:02 Last Admin: 10/23/18 23:08 Dose: Not Given Morphine Sulfate (Morphine) 4 mg IVPUSH ONETIME ONE Stop: 10/23/18 23:08 Last Admin: 10/23/18 23:08 Dose: 4 mg Non-Formulary Medication (Albuterol) 2 puff IH Q4H PRN PRN Reason: Shortness of Breath Non-Formulary Medication (Duloxetine [Cymbalta]) 20 mg PO DAILY [facility] Last Admin: 10/24/18 09:47 Dose: Not Given Non-Formulary Medication (Fluticasone/Salmeterol [Advair Diskus 500-50]) 1 puff INH BID PRN PRN Reason: Shortness of Breath Non-Formulary Medication (Multivitamin [Multivitamins]) 1 tab PO DAILY [facility] Non-Formulary Medication (Potassium Chloride [Klor-Con M20]) 20 meq PO BID [facility] Last Admin: 10/24/18 08:38 Dose: Not Given Pantoprazole Sodium (Protonix Iv) 40 mg IVPUSH Q24H [facility] Last Admin: 10/24/18 22:23 Dose: 40 mg Potassium Chloride (Klor-Con 10) 20 meq PO BID [facility] - Exam General: Alert, Oriented HEENT: Mucous Membr. Moist/[place] Neck: Supple Lungs: Clear to Auscultation, Normal Respiratory Effort Cardiovascular: Regular Rate, Regular Rhythm GI/Abdominal Exam: Normal Bowel Sounds, Soft, Non-Tender Extremities: Joint Swelling, Limited Range of Motion, Other (ecchymosis noted and increased swelling to right shoulder. Immobilizer intact.) Skin: Ecchymosis Neurological: No New Focal Deficit - Problem List & Annotations (1) Anemia SNOMED Code(s): 793250801 Code(s): D64.9 - ANEMIA, UNSPECIFIED Status: Acute Priority: High Current Visit: Yes Qualifiers: Anemia type: unspecified type Qualified Code(s): D64.9 - Anemia, unspecified (2) Fracture of humeral head, right, closed SNOMED Code(s): 546328987 Code(s): S42.291A - OTH DISP FX OF UPPER END OF RIGHT HUMERUS, INIT FOR CLOS FX Status: Acute Priority: High Current Visit: Yes Qualifiers: Encounter type: initial encounter Qualified Code(s): S42.291A - Other displaced fracture of upper end of right humerus, initial encounter for closed fracture (3) Hypomagnesemia SNOMED Code(s): 973848028 Code(s): E83.42 - HYPOMAGNESEMIA Status: Acute Priority: High Current Visit: Yes - Problem List Review Problem List Initiated/Reviewed/Updated: Yes - My Orders Last 24 Hours: My Active Orders 10/24/18 Lunch Heart Healthy Diet [DIET] 10/25/18 07:00 PACKED CELLS [RED BLOOD CELLS LP] [BBK] Routine TYPE AND SCREEN [BBK] Routine 10/25/18 08:29 Acetaminophen/HYDROcodone [[place] 325-5 MG] 2 tab PO Q4H PRN 10/25/18 09:16 Transfuse Red Blood Cells [COMM] Routine 10/25/18 09:17 Verify Patient Consent Obtain [RC] ASDIRECTED 10/25/18 10:15 Sodium Chloride 0.9% [Normal Saline] 250 ml IV ONETIME 10/25/18 16:00 CBC WITH AUTO DIFF [HEME] Timed Iron Sucrose Complex [Venofer] 400 mg Sodium Chloride 0.9% [Normal Saline] 250 ml IV Q72H 10/25/18 20:00 Docusate Sodium [Colace] 100 mg PO BID - Assessment Assessment:: Right Humerus Fracture Hypomagnesemia Anemia - Plan Plan:: Patient does admit to discomfort this am to right upper arm. Immobilizer intact. Does have ecchymosis to right eye, denies pain. Has swelling to right upper arm. Rest of exam negative. WBC normal. Hemoglobin 8.4. MCV low. Magnesium 1.8. Sodium 134, more stable today. Banana bag yet infusing at this point. Did discuss patient's alcohol use and effect it is having. Family concerned about this as well. Patient does admit to excessive use at times, has thought about treatment in [place]. Will have social service liaison discuss this with her and consider arrangements for this at some point. May need further follow up of humerus fracture prior to this however. Will finish out banana bag. Advised to notify staff if develops anxiety, Ativan if occurs. Repeat labs in am. 10-25-2018 Patient admits to feeling better today except has weakness when getting up. She does have more bruising and swelling noted to shoulder today. Not getting adequate coverage of the pain with one [place], especially when up. Labs noted today show drop again in hemoglobin to 7.6. WBC normal. Electrolytes normal. Waiting on ferritin. Will transfuse 2 units of PRBC. Iron infusion order with goal of hemoglobin to 12.5. Will increase her norco to 2 tabs every 4 hours. Repeat labs in am.
[2018-10-25] MEDS: Warfarin 2.5 MG Tab PO SCH (16:56)
[2018-10-25] MEDS: Docusate Sodium 100 MG Cap PO SCH (19:56)
[2018-10-26] MEDS: Morphine 2 MG/ML Syringe IVPUSH PRN ×3 (01:17→17:08)
[2018-10-26] MEDS: Acetaminophen/HYDROcodone 325-5 MG Tab PO PRN ×3 (04:23→19:46)
[2018-10-26] MEDS: LORazepam 2 MG/ML Syringe IVPUSH PRN ×3 (06:44→23:48)
[2018-10-26 07:34] LABS: CHLORIDE,CL 101 mEq/L (98-106); SODIUM,NA 136 mEq/L (136-145)
[2018-10-26] MEDS: Cyanocobalamin (Vitamin B12) 1,000 MCG Tab PO SCH (08:33)
[2018-10-26] MEDS: Multivitamin Tab PO SCH (08:33)
[2018-10-26] MEDS: Potassium Chloride 10 MEQ Tab.ER PO SCH ×2 (08:33→19:48)
[2018-10-26] MEDS: Furosemide 20 MG Tab PO SCH (08:33)
[2018-10-26] MEDS: Docusate Sodium 100 MG Cap PO SCH ×2 (08:33→19:48)
[2018-10-26] MEDS: PHYTONADIONE 100 MCG PO SCH (08:34)
[2018-10-26] MEDS: Pantoprazole 40 MG Vial IVPUSH SCH (08:41)
[2018-10-26] MEDS: DULoxetine 30 MG Cap PO SCH (08:41)
--- NOTE | 2018-10-26 09:05 | PCM.PN ---
- General Info Date of Service: 10/26/18 Admission Dx/Problem (Free Text): Right Humerus Fracture Hypomagnesemia Anemia Functional Status: Reports: Pain Controlled, Tolerating Diet. Denies: Ambulating - Review of Systems General: Reports: Weakness, Malaise HEENT: Denies: Headaches, Visual Changes Pulmonary: Denies: Shortness of Breath, Cough, Wheezing Cardiovascular: Denies: Chest Pain, Edema, Lightheadedness Gastrointestinal: Denies: Abdominal Pain, Nausea, Vomiting Genitourinary: Reports: No Symptoms Musculoskeletal: Reports: Shoulder Pain, Arm Pain, Joint Pain, Joint Swelling Skin: Reports: Bruising Neurological: Reports: No Symptoms - Patient Data Vitals - Most Recent: Last Vital Signs Temp 98.5 F 10/26/18 04:00 Pulse 80 10/26/18 04:00 Resp 20 10/26/18 04:00 BP 146/76 H 10/26/18 04:00 Pulse Ox 100 10/26/18 04:00 Weight - Most Recent: 181 lb 12.8 oz I&O - Last 24 Hours: Intake & Output 10/25/18 10/26/18 10/26/18 22:59 06:59 14:59 Intake Total 390 Balance 390 Lab Results Last 24 Hours: Laboratory Results - last 24 hr 10/25/18 10/25/18 10/25/18 Range/Units 07:00 07:42 16:10 WBC 5.1 (5.0-10.0) 10^3/uL RBC 3.51 L (4.00-5.50) 10^6/uL Hgb 9.3 L (12.0-16.0) g/dL Hct 28.9 L (37.0-47.0) % MCV 82.3 (82.0-94.0) fL MCH 26.5 L (27.0-32.0) pg MCHC 32.2 L (33.0-38.0) g/dL RDW Coeff of Mookie 16.5 H (11.0-15.0) % Plt Count 155 (150-400) 10^3/uL Neut % (Auto) 65.0 (35-85) % Lymph % (Auto) 17.7 (10-55) % [place] % (Auto) 14.4 (0-16) % Eos % (Auto) 2.3 (0-5) % Baso % (Auto) 0.6 (0-3) % Neut # (Auto) 3.34 (1.80-7.00) 10^3/uL Lymph # (Auto) 0.91 L (1.00-4.80) 10^3/uL [place] # (Auto) 0.74 (0.00-0.80) 10^3/uL Eos # (Auto) 0.12 (0.00-0.45) 10^3/uL Baso # (Auto) 0.03 10^3/uL Sodium (136-145) mEq/L Potassium (3.5-5.0) mEq/L Chloride (98-106) mEq/L Carbon Dioxide (21-32) mmol/L BUN (7-18) mg/dL Creatinine (0.6-1.0) mg/dL Est Cr Clr Drug Dosing mL/min Estimated GFR (MDRD) (>=60) mL/min Glucose (75-99) mg/dL Calcium (8.4-10.1) mg/dL Ferritin 30 (11-307) ng/mL C-Reactive Protein (0.2-0.8) mg/dL Blood Type O POSITIVE Gel Antibody Screen Negative Crossmatch See Detail 10/26/18 10/26/18 Range/Units 06:45 06:45 WBC 5.3 (5.0-10.0) 10^3/uL RBC 3.71 L (4.00-5.50) 10^6/uL Hgb 9.7 L (12.0-16.0) g/dL Hct 30.6 L (37.0-47.0) % MCV 82.5 (82.0-94.0) fL MCH 26.1 L (27.0-32.0) pg MCHC 31.7 L (33.0-38.0) g/dL RDW Coeff of Mookie 16.8 H (11.0-15.0) % Plt Count 173 (150-400) 10^3/uL Neut % (Auto) 66.1 (35-85) % Lymph % (Auto) 18.0 (10-55) % [place] % (Auto) 11.0 (0-16) % Eos % (Auto) 4.3 (0-5) % Baso % (Auto) 0.6 (0-3) % Neut # (Auto) 3.53 (1.80-7.00) 10^3/uL Lymph # (Auto) 0.96 L (1.00-4.80) 10^3/uL [place] # (Auto) 0.59 (0.00-0.80) 10^3/uL Eos # (Auto) 0.23 (0.00-0.45) 10^3/uL Baso # (Auto) 0.03 10^3/uL Sodium 136 (136-145) mEq/L Potassium 3.8 (3.5-5.0) mEq/L Chloride 101 (98-106) mEq/L Carbon Dioxide 28 (21-32) mmol/L BUN 8 (7-18) mg/dL Creatinine 0.8 (0.6-1.0) mg/dL Est Cr Clr Drug Dosing 62.96 mL/min Estimated GFR (MDRD) > 60 (>=60) mL/min Glucose 91 (75-99) mg/dL Calcium 8.5 (8.4-10.1) mg/dL Ferritin (11-307) ng/mL C-Reactive Protein 11.0 H (0.2-0.8) mg/dL Blood Type Gel Antibody Screen Crossmatch Raimundo Results Last 24 Hours: Microbiology 10/25/18 19:46 Occult Blood - Preliminary Stool / Feces Med Orders - Current: Current Medications Hydrocodone Bitart/Acetaminophen ([place] 325-5 Mg) 2 tab PO Q4H PRN PRN Reason: Pain (moderate 4-6) Last Admin: 10/26/18 04:23 Dose: 2 tab Albuterol (Ventolin Hfa) 0 gm INH Q4H PRN PRN Reason: Shortness of Breath Cyanocobalamin (Vitamin B12) 1,000 mcg PO DAILY [facility] Last Admin: 10/26/18 08:33 Dose: 1,000 mcg Docusate Sodium (Colace) 100 mg PO BID [facility] Last Admin: 10/26/18 08:33 Dose: 100 mg Duloxetine HCl (Cymbalta) 30 mg PO 0800 [facility] Last Admin: 10/26/18 08:41 Dose: 30 mg Furosemide (Lasix) 40 mg PO DAILY [facility] Last Admin: 10/26/18 08:33 Dose: 40 mg Hydroxyzine HCl (Atarax) 25 mg PO Q6H PRN PRN Reason: Itching Iron Sucrose 400 mg/ Sodium (Chloride) 270 mls @ 108 mls/hr IV Q72H [facility] Last Admin: 10/25/18 16:55 Dose: 108 mls/hr Lorazepam (Ativan) 1 mg IVPUSH Q6H PRN PRN Reason: Withdrawal Symptoms Last Admin: 10/26/18 06:44 Dose: 1 mg Magnesium Oxide (Magnesium Oxide) 250 mg PO DAILY [facility] Last Admin: 10/26/18 08:33 Dose: 250 mg Mometasone Furoate/Formoterol Fumar (Dulera 200-5 Mcg) 2 puff IH BIDRT PRN PRN Reason: SHORTNESS OF BREATH Morphine Sulfate (Morphine) 2 mg IVPUSH Q2H PRN PRN Reason: Pain (severe 7-10) Last Admin: 10/26/18 08:29 Dose: 2 mg Multivitamins/Minerals/Vitamin C (Tab-A-Yuli) 1 tab PO DAILY [facility] Last Admin: 10/26/18 08:33 Dose: 1 tab Non-Formulary Medication (Phytonadione [Vitamin K]) 100 mcg PO DAILY [facility] Last Admin: 10/26/18 08:34 Dose: Not Given Ondansetron HCl (Zofran) 4 mg IV Q4H PRN PRN Reason: Nausea/Vomiting Pantoprazole Sodium (Protonix Iv) 40 mg IVPUSH 0800 [facility] Last Admin: 10/26/18 08:41 Dose: 40 mg Potassium Chloride (Klor-Con 10) 20 meq PO 0800,2000 [facility] Last Admin: 10/26/18 08:33 Dose: 20 meq Warfarin Sodium (Coumadin) 2.5 mg PO SuTuWeThSa@1200 [facility] Last Admin: 10/25/18 16:56 Dose: 2.5 mg Warfarin Sodium (Coumadin) 5 mg PO MoFr@1200 [facility] Discontinued Medications Hydrocodone Bitart/Acetaminophen ([place] 325-5 Mg) 1 tab PO Q4H PRN PRN Reason: Pain (moderate 4-6) Last Admin: 10/25/18 04:06 Dose: 1 tab Docusate Sodium (Colace) 100 mg PO BID PRN PRN Reason: Constipation Last Admin: 10/25/18 07:41 Dose: 100 mg Duloxetine HCl (Cymbalta) 30 mg PO DAILY [facility] Fentanyl (Sublimaze) 50 mcg IVPUSH ONETIME ONE Stop: 10/23/18 22:15 Last Admin: 10/23/18 22:18 Dose: 50 mcg Magnesium Sulfate/Dextrose 1 (gm/ Premix) 100 mls @ 100 mls/hr IV ONETIME ONE Stop: 10/23/18 23:37 Last Admin: 10/23/18 23:06 Dose: 100 mls/hr Multivitamins/Minerals 10 ml/Folic Acid 1 mg/ Thiamine HCl 100 mg/ Sodium Chloride 1,011.2 mls @ 100 mls/hr IV ONETIME ONE Stop: 10/24/18 09:10 Last Admin: 10/24/18 00:28 Dose: 100 mls/hr Sodium Chloride (Normal Saline) 250 mls @ 50 mls/hr IV ONETIME ONE Stop: 10/25/18 15:14 Last Admin: 10/25/18 10:55 Dose: 50 mls/hr Morphine Sulfate (Morphine) Confirm Administered Dose 4 mg .ROUTE .STK-MED ONE Stop: 10/23/18 23:02 Last Admin: 10/23/18 23:08 Dose: Not Given Morphine Sulfate (Morphine) 4 mg IVPUSH ONETIME ONE Stop: 10/23/18 23:08 Last Admin: 10/23/18 23:08 Dose: 4 mg Non-Formulary Medication (Albuterol) 2 puff IH Q4H PRN PRN Reason: Shortness of Breath Non-Formulary Medication (Duloxetine [Cymbalta]) 20 mg PO DAILY [facility] Last Admin: 10/24/18 09:47 Dose: Not Given Non-Formulary Medication (Fluticasone/Salmeterol [Advair Diskus 500-50]) 1 puff INH BID PRN PRN Reason: Shortness of Breath Non-Formulary Medication (Multivitamin [Multivitamins]) 1 tab PO DAILY [facility] Non-Formulary Medication (Potassium Chloride [Klor-Con M20]) 20 meq PO BID [facility] Last Admin: 10/24/18 08:38 Dose: Not Given Pantoprazole Sodium (Protonix Iv) 40 mg IVPUSH Q24H [facility] Last Admin: 10/24/18 22:23 Dose: 40 mg Potassium Chloride (Klor-Con 10) 20 meq PO BID [facility] - Exam General: Alert, Oriented HEENT: Mucous Membr. Moist/[place] Neck: Supple Lungs: Clear to Auscultation, Normal Respiratory Effort Cardiovascular: Regular Rate, Regular Rhythm GI/Abdominal Exam: Normal Bowel Sounds, Soft, Non-Tender Extremities: Joint Swelling, Arm Pain, Limited Range of Motion, Other (right shoulder/arm has less swelling today. Considerable bruising. Immobilizer intact. Has bruising on her chest as well.) Skin: Ecchymosis Neurological: No New Focal Deficit - Problem List & Annotations (1) Anemia SNOMED Code(s): 656303059 Code(s): D64.9 - ANEMIA, UNSPECIFIED Status: Acute Priority: High Current Visit: Yes Qualifiers: Anemia type: unspecified type Qualified Code(s): D64.9 - Anemia, unspecified (2) Fracture of humeral head, right, closed SNOMED Code(s): 246130119 Code(s): S42.291A - OTH DISP FX OF UPPER END OF RIGHT HUMERUS, INIT FOR CLOS FX Status: Acute Priority: High Current Visit: Yes Qualifiers: Encounter type: initial encounter Qualified Code(s): S42.291A - Other displaced fracture of upper end of right humerus, initial encounter for closed fracture (3) Hypomagnesemia SNOMED Code(s): 847253645 Code(s): E83.42 - HYPOMAGNESEMIA Status: Acute Priority: High Current Visit: Yes - Problem List Review Problem List Initiated/Reviewed/Updated: Yes - My Orders Last 24 Hours: My Active Orders 10/25/18 08:29 Acetaminophen/HYDROcodone [[place] 325-5 MG] 2 tab PO Q4H PRN 10/25/18 09:16 Transfuse Red Blood Cells [COMM] Routine 10/25/18 09:17 Verify Patient Consent Obtain [RC] ASDIRECTED 10/25/18 16:00 Iron Sucrose Complex [Venofer] 400 mg Sodium Chloride 0.9% [Normal Saline] 250 ml IV Q72H 10/25/18 20:00 Docusate Sodium [Colace] 100 mg PO BID 10/26/18 08:39 Ambulate [RC] PER UNIT ROUTINE 10/26/18 08:46 hydrOXYzine HCl [Atarax] 25 mg PO Q6H PRN - Assessment Assessment:: Right Humerus Fracture Hypomagnesemia Anemia - Plan Plan:: Patient does admit to discomfort this am to right upper arm. Immobilizer intact. Does have ecchymosis to right eye, denies pain. Has swelling to right upper arm. Rest of exam negative. WBC normal. Hemoglobin 8.4. MCV low. Magnesium 1.8. Sodium 134, more stable today. Banana bag yet infusing at this point. Did discuss patient's alcohol use and effect it is having. Family concerned about this as well. Patient does admit to excessive use at times, has thought about treatment in [place]. Will have social work associate discuss this with her and consider arrangements for this at some point. May need further follow up of humerus fracture prior to this however. Will finish out banana bag. Advised to notify staff if develops anxiety, Ativan if occurs. Repeat labs in am. 10-25-2018 Patient admits to feeling better today except has weakness when getting up. She does have more bruising and swelling noted to shoulder today. Not getting adequate coverage of the pain with one [place], especially when up. Labs noted today show drop again in hemoglobin to 7.6. WBC normal. Electrolytes normal. Waiting on ferritin. Will transfuse 2 units of PRBC. Iron infusion order with goal of hemoglobin to 12.5. Will increase her norco to 2 tabs every 4 hours. Repeat labs in am. 10-26-2018 Patient overall status improved. Feels less lightheaded and weak today. Patient does feel less anxious. Feels itchy but does feel it is correlates with pain meds. Left shoulder and arm has less swelling today. Immobilizer intact. Blood levels improved today. Hemoglobin 9.7 today, ferritin 30. WBC 5.3, CRP 11. coordinator volunteer services did discuss treatment with patient. She is agreeable to going to the [facility] for this after the holidays. Ambulate the patient today. Continue pain meds. Repeat labs in am and if stable, possible discharge at that time.
[2018-10-26] MEDS: hydrOXYzine HCl 25 MG Tab PO PRN ×2 (09:33→21:04)
[2018-10-26] MEDS ORDERED: Warfarin 5 MG Tab PO SCH (12:00)
[2018-10-26] MEDS ORDERED: Warfarin 2.5 MG Tab PO SCH (23:12)
[2018-10-27] MEDS: Acetaminophen/HYDROcodone 325-5 MG Tab PO PRN ×4 (02:04→22:14)
[2018-10-27] MEDS: Docusate Sodium 100 MG Cap PO SCH ×2 (08:14→19:22)
[2018-10-27] MEDS: Cyanocobalamin (Vitamin B12) 1,000 MCG Tab PO SCH (08:15)
[2018-10-27] MEDS: Multivitamin Tab PO SCH (08:15)
[2018-10-27] MEDS: Furosemide 20 MG Tab PO SCH (08:15)
[2018-10-27] MEDS: Potassium Chloride 10 MEQ Tab.ER PO SCH ×2 (08:15→19:22)
[2018-10-27] MEDS: DULoxetine 30 MG Cap PO SCH (08:24)
[2018-10-27] MEDS: Pantoprazole 40 MG Vial IVPUSH SCH (08:25)
[2018-10-27] MEDS: PHYTONADIONE 100 MCG PO SCH (08:31)
[2018-10-27 10:11] LABS: CHLORIDE,CL 104 mEq/L (98-106); SODIUM,NA 139 mEq/L (136-145)
[2018-10-27] MEDS: Morphine 2 MG/ML Syringe IVPUSH PRN (11:32)
[2018-10-27] MEDS: Warfarin 2.5 MG Tab PO SCH (11:33)
--- NOTE | 2018-10-27 13:21 | PCM.CONSN ---
- General Info Date of Service: 10/27/18 Admission Dx/Problem (Free Text): Right Humerus Fracture Hypomagnesemia Anemia Subjective Update: pt advised is feeling some better, still has pain in her shoulder, stills feels weak, no cp or sob, no abd pain, no nv, no dizziness Functional Status: Reports: Tolerating Diet, Ambulating - Review of Systems General: Reports: No Symptoms, Weakness (unchanged from before) HEENT: Reports: No Symptoms Pulmonary: Reports: No Symptoms Cardiovascular: Reports: No Symptoms Gastrointestinal: Reports: No Symptoms Genitourinary: Reports: No Symptoms Musculoskeletal: Reports: Shoulder Pain (still has right shoulder pain) Skin: Reports: No Symptoms Neurological: Reports: No Symptoms Psychiatric: Reports: No Symptoms - Patient Data Vitals - Most Recent: Last Vital Signs Temp 36.6 C 10/27/18 12:00 Pulse 94 10/27/18 12:00 Resp 16 10/27/18 12:00 BP 118/66 10/27/18 12:00 Pulse Ox 94 L 10/27/18 12:00 Weight - Most Recent: 83.189 kg Lab Results Last 24 Hours: Laboratory Results - last 24 hr 10/27/18 10/27/18 Range/Units 09:40 09:40 WBC 4.5 L (5.0-10.0) 10^3/uL RBC 3.34 L (4.00-5.50) 10^6/uL Hgb 8.7 L (12.0-16.0) g/dL Hct 28.2 L (37.0-47.0) % MCV 84.4 (82.0-94.0) fL MCH 26.0 L (27.0-32.0) pg MCHC 30.9 L (33.0-38.0) g/dL RDW Coeff of Mookie 17.6 H (11.0-15.0) % Plt Count 168 (150-400) 10^3/uL Neut % (Auto) 55.2 (35-85) % Lymph % (Auto) 22.4 (10-55) % [place] % (Auto) 16.4 H (0-16) % Eos % (Auto) 5.3 H (0-5) % Baso % (Auto) 0.7 (0-3) % Neut # (Auto) 2.48 (1.80-7.00) 10^3/uL Lymph # (Auto) 1.01 (1.00-4.80) 10^3/uL [place] # (Auto) 0.74 (0.00-0.80) 10^3/uL Eos # (Auto) 0.24 (0.00-0.45) 10^3/uL Baso # (Auto) 0.03 10^3/uL Sodium 139 (136-145) mEq/L Potassium 4.4 (3.5-5.0) mEq/L Chloride 104 (98-106) mEq/L Carbon Dioxide 30 (21-32) mmol/L BUN 10 (7-18) mg/dL Creatinine 0.8 (0.6-1.0) mg/dL Est Cr Clr Drug Dosing 62.96 mL/min Estimated GFR (MDRD) > 60 (>=60) mL/min Glucose 92 (75-99) mg/dL Calcium 8.5 (8.4-10.1) mg/dL Magnesium 1.6 L (1.8-2.4) mg/dL Total Bilirubin 0.5 (0.0-1.0) mg/dL AST 13 L (15-37) U/L ALT 12 (12-78) U/L Alkaline Phosphatase 81 (46-116) U/L Total Protein 6.1 L (6.4-8.2) g/dL Albumin 2.6 L (3.4-5.0) g/dL Raimundo Results Last 24 Hours: Microbiology 10/25/18 19:46 Occult Blood - Preliminary Stool / Feces Med Orders - Current: Current Medications Hydrocodone Bitart/Acetaminophen ([place] 325-5 Mg) 2 tab PO Q4H PRN PRN Reason: Pain (moderate 4-6) Last Admin: 10/27/18 08:24 Dose: 2 tab Albuterol (Ventolin Hfa) 0 gm INH Q4H PRN PRN Reason: Shortness of Breath Cyanocobalamin (Vitamin B12) 1,000 mcg PO DAILY [facility] Last Admin: 10/27/18 08:15 Dose: 1,000 mcg Docusate Sodium (Colace) 100 mg PO BID [facility] Last Admin: 10/27/18 08:14 Dose: 100 mg Duloxetine HCl (Cymbalta) 30 mg PO 0800 [facility] Last Admin: 10/27/18 08:24 Dose: 30 mg Furosemide (Lasix) 40 mg PO DAILY [facility] Last Admin: 10/27/18 08:15 Dose: 40 mg Hydroxyzine HCl (Atarax) 25 mg PO Q6H PRN PRN Reason: Itching Last Admin: 10/26/18 21:04 Dose: 25 mg Iron Sucrose 400 mg/ Sodium (Chloride) 270 mls @ 108 mls/hr IV Q72H [facility] Last Admin: 10/25/18 16:55 Dose: 108 mls/hr Lorazepam (Ativan) 1 mg IVPUSH Q6H PRN PRN Reason: Withdrawal Symptoms Last Admin: 10/26/18 23:48 Dose: 1 mg Magnesium Oxide (Magnesium Oxide) 250 mg PO DAILY [facility] Last Admin: 10/27/18 08:15 Dose: 250 mg Mometasone Furoate/Formoterol Fumar (Dulera 200-5 Mcg) 2 puff IH BIDRT PRN PRN Reason: SHORTNESS OF BREATH Morphine Sulfate (Morphine) 2 mg IVPUSH Q2H PRN PRN Reason: Pain (severe 7-10) Last Admin: 10/27/18 11:32 Dose: 2 mg Multivitamins/Minerals/Vitamin C (Tab-A-Yuli) 1 tab PO DAILY [facility] Last Admin: 10/27/18 08:15 Dose: 1 tab Non-Formulary Medication (Phytonadione [Vitamin K]) 100 mcg PO DAILY [facility] Last Admin: 10/27/18 08:31 Dose: Not Given Ondansetron HCl (Zofran) 4 mg IV Q4H PRN PRN Reason: Nausea/Vomiting Pantoprazole Sodium (Protonix Iv) 40 mg IVPUSH 0800 [facility] Last Admin: 10/27/18 08:25 Dose: 40 mg Potassium Chloride (Klor-Con 10) 20 meq PO 0800,2000 [facility] Last Admin: 10/27/18 08:15 Dose: 20 meq Warfarin Sodium (Coumadin) 2.5 mg PO SuTuWeThSa@1200 [facility] Last Admin: 10/27/18 11:33 Dose: 2.5 mg Warfarin Sodium (Coumadin) 5 mg PO MoFr@1200 [facility] Last Admin: 10/26/18 12:55 Dose: 5 mg Discontinued Medications Hydrocodone Bitart/Acetaminophen ([place] 325-5 Mg) 1 tab PO Q4H PRN PRN Reason: Pain (moderate 4-6) Last Admin: 10/25/18 04:06 Dose: 1 tab Docusate Sodium (Colace) 100 mg PO BID PRN PRN Reason: Constipation Last Admin: 10/25/18 07:41 Dose: 100 mg Duloxetine HCl (Cymbalta) 30 mg PO DAILY [facility] Fentanyl (Sublimaze) 50 mcg IVPUSH ONETIME ONE Stop: 10/23/18 22:15 Last Admin: 10/23/18 22:18 Dose: 50 mcg Magnesium Sulfate/Dextrose 1 (gm/ Premix) 100 mls @ 100 mls/hr IV ONETIME ONE Stop: 10/23/18 23:37 Last Admin: 10/23/18 23:06 Dose: 100 mls/hr Multivitamins/Minerals 10 ml/Folic Acid 1 mg/ Thiamine HCl 100 mg/ Sodium Chloride 1,011.2 mls @ 100 mls/hr IV ONETIME ONE Stop: 10/24/18 09:10 Last Admin: 10/24/18 00:28 Dose: 100 mls/hr Sodium Chloride (Normal Saline) 250 mls @ 50 mls/hr IV ONETIME ONE Stop: 10/25/18 15:14 Last Admin: 10/25/18 10:55 Dose: 50 mls/hr Morphine Sulfate (Morphine) Confirm Administered Dose 4 mg .ROUTE .STK-MED ONE Stop: 10/23/18 23:02 Last Admin: 10/23/18 23:08 Dose: Not Given Morphine Sulfate (Morphine) 4 mg IVPUSH ONETIME ONE Stop: 10/23/18 23:08 Last Admin: 10/23/18 23:08 Dose: 4 mg Non-Formulary Medication (Albuterol) 2 puff IH Q4H PRN PRN Reason: Shortness of Breath Non-Formulary Medication (Duloxetine [Cymbalta]) 20 mg PO DAILY [facility] Last Admin: 10/24/18 09:47 Dose: Not Given Non-Formulary Medication (Fluticasone/Salmeterol [Advair Diskus 500-50]) 1 puff INH BID PRN PRN Reason: Shortness of Breath Non-Formulary Medication (Multivitamin [Multivitamins]) 1 tab PO DAILY [facility] Non-Formulary Medication (Potassium Chloride [Klor-Con M20]) 20 meq PO BID [facility] Last Admin: 10/24/18 08:38 Dose: Not Given Pantoprazole Sodium (Protonix Iv) 40 mg IVPUSH Q24H [facility] Last Admin: 10/24/18 22:23 Dose: 40 mg Potassium Chloride (Klor-Con 10) 20 meq PO BID [facility] - Exam General: Alert, Oriented, Cooperative HEENT: Pupils Equal, Pupils Reactive Neck: Supple, Trachea Midline Lungs: Clear to Auscultation, Normal Respiratory Effort Cardiovascular: Regular Rate, Regular Rhythm, No Murmurs GI/Abdominal Exam: Normal Bowel Sounds, Soft, Non-Tender, No Distention Back Exam: Normal Inspection, Full Range of Motion Extremities: Normal Inspection (except right shoulder), Normal Range of Motion ( except right shoulder), No Pedal Edema, Normal Capillary Refill Peripheral Pulses: 2+: Radial (L), Radial (R) Skin: Warm, Dry, Intact Neurological: No New Focal Deficit, Normal Gait, Normal Speech Psy/Mental Status: Alert, Normal Affect, Normal Mood Consult PN Assessment/Plan Procedures: Procedures AIRWAY INHALATION TREATMENT (12/03/17) ASSAY OF CK (CPK) (08/20/18) ASSAY OF FERRITIN (09/18/18) ASSAY OF IRON (09/18/18) ASSAY OF LACTIC ACID (12/03/17) ASSAY OF MAGNESIUM (08/20/18) ASSAY OF NATRIURETIC PEPTIDE (12/03/17) ASSAY OF TRANSFERRIN (10/13/15) ASSAY OF TROPONIN QUANT (08/20/18) ASSAY THYROID STIM HORMONE (04/06/16) BLOOD CULTURE FOR BACTERIA (12/03/17) C-REACTIVE PROTEIN (04/09/18) CARDIAC REHAB/MONITOR (06/27/16) CHEST X-RAY 2VW FRONTAL&LATL (02/15/17) COMPLETE CBC W/AUTO DIFF WBC (09/25/18) COMPREHEN METABOLIC PANEL (09/11/18) CRITICAL CARE ADDL 30 MIN (08/20/18) CRITICAL CARE FIRST HOUR (08/20/18) CULTURE OTHR SPECIMN AEROBIC (02/15/17) ELECTROCARDIOGRAM TRACING (08/20/18) EMERGENCY DEPT VISIT (05/18/18) EMERGENCY DEPT VISIT (04/09/18) EMERGENCY DEPT VISIT (12/03/17) EMERGENCY DEPT VISIT (08/06/17) EMERGENCY DEPT VISIT (04/11/16) FIBRIN DEGRADATION QUANT (12/03/17) HEART/LUNG RESUSCITATION CPR (08/20/18) HEMATOCRIT (09/18/15) HEMOGLOBIN (09/18/15) HYDRATE IV INFUSION ADD-ON (04/09/18) INFLUENZA ASSAY W/OPTIC (12/03/17) IRON BINDING TEST (09/18/18) LACTATE (LD) (LDH) ENZYME (08/20/18) METABOLIC PANEL TOTAL CA (09/25/18) PROTHROMBIN TIME (10/19/18) ROUTINE VENIPUNCTURE (10/19/18) SMEAR GRAM STAIN (02/15/17) THER/PROPH/DIAG INJ IV PUSH (04/06/16) THER/PROPH/DIAG INJ SC/IM (12/03/17) THER/PROPH/DIAG IV INF INIT (08/20/18) THROMBOPLASTIN TIME PARTIAL (08/20/18) TREAT FRACTURE RADIUS/ULNA (08/06/17) TTE W/DOPPLER COMPLETE (03/26/18) TX/PRO/DX INJ NEW DRUG ADDON (04/09/18) TX/PRO/DX INJ SAME DRUG CONSUMER MARKETING ANALYST (08/20/18) URINALYSIS AUTO W/SCOPE (12/03/17) X-RAY EXAM CHEST 1 VIEW (08/20/18) X-RAY EXAM CHEST 2 VIEWS (12/03/17) X-RAY EXAM HIP UNI 2-3 VIEWS (05/18/18) X-RAY EXAM OF HUMERUS (12/02/14) X-RAY EXAM OF WRIST (11/13/17) Problem List Initiated/Reviewed/Updated: Yes Plan: will keep pt one more day and repeat her cbc in the am, if remains stable will dc home, pts H/H today is 8.4/26.1 which is up from yesterday 7.6/24. mag is 1.8 , no withdraw sx noted.
[2018-10-28] MEDS: Morphine 2 MG/ML Syringe IVPUSH PRN (00:36)
[2018-10-28] MEDS: Acetaminophen/HYDROcodone 325-5 MG Tab PO PRN ×3 (05:26→13:46)
[2018-10-28] MEDS: Potassium Chloride 10 MEQ Tab.ER PO SCH (07:28)
[2018-10-28] MEDS: Docusate Sodium 100 MG Cap PO SCH (07:28)
[2018-10-28] MEDS: Furosemide 20 MG Tab PO SCH (07:29)
[2018-10-28] MEDS: Multivitamin Tab PO SCH (07:29)
[2018-10-28] MEDS: Cyanocobalamin (Vitamin B12) 1,000 MCG Tab PO SCH (07:30)
[2018-10-28] MEDS: Pantoprazole 40 MG Vial IVPUSH SCH (07:34)
[2018-10-28] MEDS: DULoxetine 30 MG Cap PO SCH (07:34)
[2018-10-28] MEDS: PHYTONADIONE 100 MCG PO SCH (07:39)
[2018-10-28] MEDS ORDERED: Magnesium Sulfate/D5W 2 GM in Premix Bag 1 BAG IV ONE (08:46)
--- NOTE | 2018-10-28 08:53 | PCM.CONSN ---
- General Info Date of Service: 10/28/18 Functional Status: Reports: Pain Controlled - Review of Systems General: Reports: No Symptoms HEENT: Reports: No Symptoms Pulmonary: Reports: No Symptoms Cardiovascular: Reports: No Symptoms Gastrointestinal: Reports: No Symptoms Genitourinary: Reports: No Symptoms Musculoskeletal: Reports: Shoulder Pain (right shoulder pain, is under control) Skin: Reports: No Symptoms Neurological: Reports: No Symptoms Psychiatric: Reports: No Symptoms - Patient Data Vitals - Most Recent: Last Vital Signs Temp 35.9 C 10/28/18 07:54 Pulse 80 10/28/18 07:54 Resp 20 10/28/18 07:54 BP 127/68 10/28/18 07:54 Pulse Ox 99 10/28/18 07:54 Weight - Most Recent: 83.189 kg Lab Results Last 24 Hours: Laboratory Results - last 24 hr 10/27/18 10/27/18 10/28/18 Range/Units 09:40 09:40 07:00 WBC 4.5 L 3.7 L (5.0-10.0) 10^3/uL RBC 3.34 L 3.42 L (4.00-5.50) 10^6/uL Hgb 8.7 L 9.1 L (12.0-16.0) g/dL Hct 28.2 L 28.9 L (37.0-47.0) % MCV 84.4 84.5 (82.0-94.0) fL MCH 26.0 L 26.6 L (27.0-32.0) pg MCHC 30.9 L 31.5 L (33.0-38.0) g/dL RDW Coeff of Mookie 17.6 H 18.6 H (11.0-15.0) % Plt Count 168 179 (150-400) 10^3/uL Neut % (Auto) 55.2 49.8 (35-85) % Lymph % (Auto) 22.4 29.3 (10-55) % [place] % (Auto) 16.4 H 14.1 (0-16) % Eos % (Auto) 5.3 H 5.7 H (0-5) % Baso % (Auto) 0.7 1.1 (0-3) % Neut # (Auto) 2.48 1.83 (1.80-7.00) 10^3/uL Lymph # (Auto) 1.01 1.08 (1.00-4.80) 10^3/uL [place] # (Auto) 0.74 0.52 (0.00-0.80) 10^3/uL Eos # (Auto) 0.24 0.21 (0.00-0.45) 10^3/uL Baso # (Auto) 0.03 0.04 10^3/uL Sodium 139 (136-145) mEq/L Potassium 4.4 (3.5-5.0) mEq/L Chloride 104 (98-106) mEq/L Carbon Dioxide 30 (21-32) mmol/L BUN 10 (7-18) mg/dL Creatinine 0.8 (0.6-1.0) mg/dL Est Cr Clr Drug Dosing 62.96 mL/min Estimated GFR (MDRD) > 60 (>=60) mL/min Glucose 92 (75-99) mg/dL Calcium 8.5 (8.4-10.1) mg/dL Magnesium 1.6 L (1.8-2.4) mg/dL Total Bilirubin 0.5 (0.0-1.0) mg/dL AST 13 L (15-37) U/L ALT 12 (12-78) U/L Alkaline Phosphatase 81 (46-116) U/L Total Protein 6.1 L (6.4-8.2) g/dL Albumin 2.6 L (3.4-5.0) g/dL Raimundo Results Last 24 Hours: Microbiology 10/25/18 19:46 Occult Blood - Final Stool / Feces Med Orders - Current: Current Medications Hydrocodone Bitart/Acetaminophen ([place] 325-5 Mg) 2 tab PO Q4H PRN PRN Reason: Pain (moderate 4-6) Last Admin: 10/28/18 05:26 Dose: 2 tab Albuterol (Ventolin Hfa) 0 gm INH Q4H PRN PRN Reason: Shortness of Breath Cyanocobalamin (Vitamin B12) 1,000 mcg PO DAILY [facility] Last Admin: 10/28/18 07:30 Dose: 1,000 mcg Docusate Sodium (Colace) 100 mg PO BID [facility] Last Admin: 10/28/18 07:28 Dose: 100 mg Duloxetine HCl (Cymbalta) 30 mg PO 0800 [facility] Last Admin: 12/23/18 07:34 Dose: 30 mg Furosemide (Lasix) 40 mg PO DAILY [facility] Last Admin: 10/28/18 07:29 Dose: 40 mg Hydroxyzine HCl (Atarax) 25 mg PO Q6H PRN PRN Reason: Itching Last Admin: 10/26/18 21:04 Dose: 25 mg Iron Sucrose 400 mg/ Sodium (Chloride) 270 mls @ 108 mls/hr IV Q72H [facility] Last Admin: 10/25/18 16:55 Dose: 108 mls/hr Magnesium Sulfate/Dextrose 2 (gm/ Premix) 200 mls @ 100 mls/hr IV ONETIME ONE Stop: 10/28/18 10:45 Lorazepam (Ativan) 1 mg IVPUSH Q6H PRN PRN Reason: Withdrawal Symptoms Last Admin: 10/26/18 23:48 Dose: 1 mg Magnesium Oxide (Magnesium Oxide) 250 mg PO DAILY [facility] Last Admin: 10/28/18 07:29 Dose: 250 mg Mometasone Furoate/Formoterol Fumar (Dulera 200-5 Mcg) 2 puff IH BIDRT PRN PRN Reason: SHORTNESS OF BREATH Morphine Sulfate (Morphine) 2 mg IVPUSH Q2H PRN PRN Reason: Pain (severe 7-10) Last Admin: 10/28/18 00:36 Dose: 2 mg Multivitamins/Minerals/Vitamin C (Tab-A-Yuli) 1 tab PO DAILY [facility] Last Admin: 10/28/18 07:29 Dose: 1 tab Non-Formulary Medication (Phytonadione [Vitamin K]) 100 mcg PO DAILY [facility] Last Admin: 10/28/18 07:39 Dose: Not Given Ondansetron HCl (Zofran) 4 mg IV Q4H PRN PRN Reason: Nausea/Vomiting Pantoprazole Sodium (Protonix Iv) 40 mg IVPUSH 0800 [facility] Last Admin: 10/28/18 07:34 Dose: 40 mg Potassium Chloride (Klor-Con 10) 20 meq PO 0800,2000 [facility] Last Admin: 10/28/18 07:28 Dose: 20 meq Warfarin Sodium (Coumadin) 2.5 mg PO SuTuWeThSa@1200 [facility] Last Admin: 10/27/18 11:33 Dose: 2.5 mg Warfarin Sodium (Coumadin) 5 mg PO MoFr@1200 [facility] Last Admin: 10/26/18 12:55 Dose: 5 mg Discontinued Medications Hydrocodone Bitart/Acetaminophen ([place] 325-5 Mg) 1 tab PO Q4H PRN PRN Reason: Pain (moderate 4-6) Last Admin: 10/25/18 04:06 Dose: 1 tab Docusate Sodium (Colace) 100 mg PO BID PRN PRN Reason: Constipation Last Admin: 10/25/18 07:41 Dose: 100 mg Duloxetine HCl (Cymbalta) 30 mg PO DAILY [facility] Fentanyl (Sublimaze) 50 mcg IVPUSH ONETIME ONE Stop: 10/23/18 22:15 Last Admin: 10/23/18 22:18 Dose: 50 mcg Magnesium Sulfate/Dextrose 1 (gm/ Premix) 100 mls @ 100 mls/hr IV ONETIME ONE Stop: 10/23/18 23:37 Last Admin: 10/23/18 23:06 Dose: 100 mls/hr Multivitamins/Minerals 10 ml/Folic Acid 1 mg/ Thiamine HCl 100 mg/ Sodium Chloride 1,011.2 mls @ 100 mls/hr IV ONETIME ONE Stop: 10/24/18 09:10 Last Admin: 10/24/18 00:28 Dose: 100 mls/hr Sodium Chloride (Normal Saline) 250 mls @ 50 mls/hr IV ONETIME ONE Stop: 10/25/18 15:14 Last Admin: 10/25/18 10:55 Dose: 50 mls/hr Morphine Sulfate (Morphine) Confirm Administered Dose 4 mg .ROUTE .STK-MED ONE Stop: 10/23/18 23:02 Last Admin: 10/23/18 23:08 Dose: Not Given Morphine Sulfate (Morphine) 4 mg IVPUSH ONETIME ONE Stop: 10/23/18 23:08 Last Admin: 10/23/18 23:08 Dose: 4 mg Non-Formulary Medication (Albuterol) 2 puff IH Q4H PRN PRN Reason: Shortness of Breath Non-Formulary Medication (Duloxetine [Cymbalta]) 20 mg PO DAILY [facility] Last Admin: 10/24/18 09:47 Dose: Not Given Non-Formulary Medication (Fluticasone/Salmeterol [Advair Diskus 500-50]) 1 puff INH BID PRN PRN Reason: Shortness of Breath Non-Formulary Medication (Multivitamin [Multivitamins]) 1 tab PO DAILY [facility] Non-Formulary Medication (Potassium Chloride [Klor-Con M20]) 20 meq PO BID [facility] Last Admin: 10/24/18 08:38 Dose: Not Given Pantoprazole Sodium (Protonix Iv) 40 mg IVPUSH Q24H [facility] Last Admin: 10/24/18 22:23 Dose: 40 mg Potassium Chloride (Klor-Con 10) 20 meq PO BID [facility] - Exam General: Alert, Oriented, Cooperative, No Acute Distress Neck: Supple, Trachea Midline Lungs: Clear to Auscultation, Normal Respiratory Effort Cardiovascular: Regular Rate, Regular Rhythm GI/Abdominal Exam: Soft, Non-Tender Back Exam: Normal Inspection, Full Range of Motion Extremities: Normal Inspection (except right shoulder), Normal Range of Motion ( except right shoulder), No Pedal Edema, Normal Capillary Refill. No: Non- Tender (pain right shoulder, has improved) Skin: Warm, Dry, Intact Neurological: No New Focal Deficit Psy/Mental Status: Alert, Normal Affect, Normal Mood Consult PN Assessment/Plan Procedures: Procedures AIRWAY INHALATION TREATMENT (12/03/17) ASSAY OF CK (CPK) (08/20/18) ASSAY OF FERRITIN (09/18/18) ASSAY OF IRON (09/18/18) ASSAY OF LACTIC ACID (12/03/17) ASSAY OF MAGNESIUM (08/20/18) ASSAY OF NATRIURETIC PEPTIDE (12/03/17) ASSAY OF TRANSFERRIN (10/13/15) ASSAY OF TROPONIN QUANT (08/20/18) ASSAY THYROID STIM HORMONE (04/06/16) BLOOD CULTURE FOR BACTERIA (12/03/17) C-REACTIVE PROTEIN (04/09/18) CARDIAC REHAB/MONITOR (06/27/16) CHEST X-RAY 2VW FRONTAL&LATL (02/15/17) COMPLETE CBC W/AUTO DIFF WBC (09/25/18) COMPREHEN METABOLIC PANEL (09/11/18) CRITICAL CARE ADDL 30 MIN (08/20/18) CRITICAL CARE FIRST HOUR (08/20/18) CULTURE OTHR SPECIMN AEROBIC (02/15/17) ELECTROCARDIOGRAM TRACING (08/20/18) EMERGENCY DEPT VISIT (05/18/18) EMERGENCY DEPT VISIT (04/09/18) EMERGENCY DEPT VISIT (12/03/17) EMERGENCY DEPT VISIT (08/06/17) EMERGENCY DEPT VISIT (04/11/16) FIBRIN DEGRADATION QUANT (12/03/17) HEART/LUNG RESUSCITATION CPR (08/20/18) HEMATOCRIT (09/18/15) HEMOGLOBIN (09/18/15) HYDRATE IV INFUSION ADD-ON (04/09/18) INFLUENZA ASSAY W/OPTIC (12/03/17) IRON BINDING TEST (09/18/18) LACTATE (LD) (LDH) ENZYME (08/20/18) METABOLIC PANEL TOTAL CA (09/25/18) PROTHROMBIN TIME (10/19/18) ROUTINE VENIPUNCTURE (10/19/18) SMEAR GRAM STAIN (02/15/17) THER/PROPH/DIAG INJ IV PUSH (04/06/16) THER/PROPH/DIAG INJ SC/IM (12/03/17) THER/PROPH/DIAG IV INF INIT (08/20/18) THROMBOPLASTIN TIME PARTIAL (08/20/18) TREAT FRACTURE RADIUS/ULNA (08/06/17) TTE W/DOPPLER COMPLETE (03/26/18) TX/PRO/DX INJ NEW DRUG ADDON (04/09/18) TX/PRO/DX INJ SAME DRUG [employer] SYSTEM[employer] ANALYST (08/20/18) URINALYSIS AUTO W/SCOPE (12/03/17) X-RAY EXAM CHEST 1 VIEW (08/20/18) X-RAY EXAM CHEST 2 VIEWS (12/03/17) X-RAY EXAM HIP UNI 2-3 VIEWS (05/18/18) X-RAY EXAM OF HUMERUS (12/02/14) X-RAY EXAM OF WRIST (11/13/17) (1) Anemia SNOMED Code(s): 656678543 Code(s): D64.9 - ANEMIA, UNSPECIFIED Priority: High Current Visit: Yes Qualifiers: Anemia type: unspecified type Qualified Code(s): D64.9 - Anemia, unspecified (2) Fracture of humeral head, right, closed SNOMED Code(s): 889065972 Code(s): S42.291A - OTH DISP FX OF UPPER END OF RIGHT HUMERUS, INIT FOR CLOS FX Priority: High Current Visit: Yes Qualifiers: Encounter type: initial encounter Qualified Code(s): S42.291A - Other displaced fracture of upper end of right humerus, initial encounter for closed fracture (3) Hypomagnesemia SNOMED Code(s): 082933215 Code(s): E83.42 - HYPOMAGNESEMIA Priority: High Current Visit: Yes Problem List Initiated/Reviewed/Updated: Yes My Orders Last 24 Hours: My Active Orders 10/28/18 08:46 Magnesium Sulfate/D5W [Magnesium 1 GM in D5W 100 ML] 2 gm Premix Bag 1 bag IV ONETIME Plan: pain is under control, pts was given 2gm of mag iv, will dc home with norco 7.5/ 325mg 1 every 4 hours as needed for pain #20, pt to f/u with Dr. Hendricks this week
[2018-10-28] MEDS ORDERED: Take Home: Acetaminophen/HYDROcodone 325-5 MG, 2 Tab Pack PO ONE (09:05)
[2018-10-28] MEDS: Warfarin 2.5 MG Tab PO SCH (11:44)
[2018-10-28 14:06] VITALS: BP 103/58
[2018-10-28] MEDS ORDERED: Acetaminophen/HYDROcodone 325-5 MG Tab PO ONE (14:29)
== END 2018-10-28 14:30 | disposition home or self-care (01) | DRG 342 ==
LOC: CC.ED 21:16 → CC.MS 23:04 → CC.ED 23:15 → UNDOADMIN 23:50 → CC.MS 23:50
PROVIDERS: ADMIT Physician Assistant Medical; ATTEND Family Medicine
PROC: 30233N1 Transfusion of Nonautologous Red Blood Cells into Peripheral Vein, Percutaneous Approach (ICD-10-PCS; principal; 2018-10-25)
DX: S42.291A Other displaced fracture of upper end of right humerus, initial encounter for closed fracture (principal); I48.91 Unspecified atrial fibrillation; E83.42 Hypomagnesemia; W01.0XXA Fall on same level from slipping, tripping and stumbling without subsequent striking against object, initial encounter; D64.9 Anemia, unspecified; H54.7 Unspecified visual loss; J45.909 Unspecified asthma, uncomplicated; M19.90 Unspecified osteoarthritis, unspecified site; E53.8 Deficiency of other specified B group vitamins; E61.1 Iron deficiency; Z88.1 Allergy status to other antibiotic agents; Z96.653 Presence of artificial knee joint, bilateral; Z79.899 Other long term (current) drug therapy; Z79.01 Long term (current) use of anticoagulants; Z95.2 Presence of prosthetic heart valve; Z98.84 Bariatric surgery status; Z95.810 Presence of automatic (implantable) cardiac defibrillator
CPT/HCPCS: 36415; 36430; 70450; 73030-RT; 80048; 80053; 82270; 82728; 83735; 85025; 85610; 86140; 86850; 86900; 86901; 86920; 86922; 96375; 99285; A9270-GY; C9113; J1756; J2060; J2270; J3010; J3411; J3475; J3490; J7030; J7050; P9016

== ENCOUNTER 2019-07-20 20:57 | Observation (INO) | payer BC ==
--- NOTE | 2019-07-20 21:00 | EDM.PDOC ---
ED HPI GENERAL MEDICAL PROBLEM - General Chief Complaint: Chest Pain Stated Complaint: "inr up?" questionable bleed, chest heavy Time Seen by Provider: 07/20/19 21:00 Source of Information: Reports: Patient History Limitations: Reports: No Limitations - History of Present Illness INITIAL COMMENTS - FREE TEXT/NARRATIVE: pt in with c/o several complaints, her more significant complaint is chest heaviness x 4 hours with some sob, also c/o thinks her INR is elevated has she has an area on her right arm that is taking longer to stop bleeding than she would suspect, she also advised she notice blood in her last stool, no abd pain , no nvdc, no uti sx, no unusual neck/back pain or stiffness, no ear sx, no change in vision, does have increased nasal congestion, no sore throat. no fever or chills. has a hx of heart valve replacement and that is why she is on Coumadin, does have a hx of cardiac arrest (unsure the nature of the arrest). Onset: Today Duration: Hour(s): Location: Reports: Chest Quality: Reports: Pressure (heaviness) Severity: Mild Improves with: Reports: None Worsens with: Reports: None Associated Symptoms: Reports: Chest Pain, Shortness of Breath, Weakness. Denies : Cough, Fever/Chills, Headaches, Nausea/Vomiting, Syncope Treatments COOK COLD MEAT: Reports: Other (see below) (mucenex ) - Related Data Allergies Allergy/AdvReac Type Severity Reaction Status Date / Time erythromycin ethylsuccinate Allergy Rash Verified 07/20/19 21:16 [From [facility] Home Meds: Home Meds Cyanocobalamin (Vitamin B-12) [Vitamin B-12] 2,000 mcg PO DAILY 10/23/15 [ History] Multivitamin [Multivitamins] 1 tab PO DAILY 10/23/15 [History] Albuterol Sulfate [Proair Hfa] 2 puff IH Q4H PRN 04/06/16 [History] Furosemide [Lasix] 40 mg PO DAILY PRN 06/22/16 [History] Magnesium 250 mg PO DAILY 02/15/17 [History] Phytonadione [Vitamin K] 200 mcg PO DAILY 02/15/17 [History] Potassium Chloride [Klor-Con M20] 20 meq PO DAILY 02/15/17 [History] Acetaminophen/HYDROcodone [[place] 325-5 MG] 1 tab PO Q6H PRN #15 tablet 05/18/18 [Rx] Warfarin [Coumadin] 2.5 mg PO MOFR 05/18/18 [History] Losartan Potassium 12.5 mg PO DAILY 10/28/18 [History] Carvedilol 6.25 mg PO BID 07/20/19 [History] Omeprazole 20 mg PO DAILY 07/20/19 [History] Thiamine HCl [Vitamin B-1] 250 mg PO DAILY 07/20/19 [History] Warfarin Sodium 3.375 mg PO ASDIRECTED 07/20/19 [History] Past Medical History HEENT History: Reports: Impaired Vision Other HEENT History: PATIENT WEARS GLASSSES Cardiovascular History: Reports: Afib, Heart Valve Replacement, Pacemaker Other Cardiovascular History: hypertension prior to gastric bypass; has since resolved Respiratory History: Reports: Asthma Other Respiratory History: sleep apnea prior to gastric bypass; has since resolved Gastrointestinal History: Reports: GI Bleed Other Gastrointestinal History: GIB in September 2015 - treated in [place] [employer] History: Reports: None Musculoskeletal History: Reports: Osteoarthritis Other Musculoskeletal History: OA in knees; total knee replacements Hematologic History: Reports: B12 Deficiency, Iron Deficiency Other Hematologic History: Iron infusion in October 2015; B12 supplements since gastric bypass - Infectious Disease History Infectious Disease History: Reports: None - Past Surgical History HEENT Surgical History: Reports: Tonsillectomy Cardiovascular Surgical History: Reports: AICD, Valve Replacement GI Surgical History: Reports: Bariatric Procedure Musculoskeletal Surgical History: Reports: Knee Replacement Social & Family History - Family History Family Medical History: Noncontributory - Caffeine Use Caffeine Use: Reports: None ED ROS GENERAL - Review of Systems Review Of Systems: See Below Constitutional: Reports: No Symptoms. Denies: Fever, Chills HEENT: Reports: Sinus Problem. Denies: Ear Pain, Nose Pain, Throat Pain, Vertigo, Vision Change Respiratory: Reports: Shortness of Breath. Denies: Wheezing Cardiovascular: Reports: Chest Pain Endocrine: Reports: No Symptoms GI/Abdominal: Reports: Melena. Denies: Abdominal Pain, Nausea, Vomiting : Reports: No Symptoms Musculoskeletal: Reports: No Symptoms. Denies: Neck Pain, Back Pain Skin: Reports: No Symptoms. Denies: Bruising, Rash, Erythema Neurological: Reports: No Symptoms. Denies: Confusion, Dizziness, Headache, Numbness, Paresthesia, Trouble Speaking, Difficulty Walking Psychiatric: Reports: No Symptoms ED EXAM, GENERAL - Physical Exam Exam: See Below Exam Limited By: No Limitations General Appearance: Alert, No Apparent Distress Ears: Normal External Exam, Hearing Grossly Normal Nose: Normal Inspection Throat/Mouth: Normal Inspection, Normal Lips Head: Atraumatic, Normocephalic Neck: Normal Inspection, Supple, Non-Tender, Full Range of Motion Respiratory/Chest: No Respiratory Distress, Lungs Clear, Normal Breath Sounds Cardiovascular: Normal Peripheral Pulses, Regular Rate, Rhythm, No Edema Peripheral Pulses: 2+: Radial (L), Radial (R) GI/Abdominal: Soft, Non-Tender, No Distention Back Exam: Normal Inspection, Full Range of Motion Extremities: Normal Inspection, Normal Range of Motion, Non-Tender, Normal Capillary Refill Neurological: Alert, Oriented, Normal Cognition, Normal Gait Psychiatric: Normal Affect, Normal Mood Skin Exam: Warm, Dry, Intact, Normal Color EKG INTERPRETATION EKG Date: 07/20/19 Time: 21:04 Rhythm: Other (Paced) EKG Interpretation Comments: ventricular pacer Course - Vital Signs Last Recorded V/S: Last Vital Signs Temp 36.5 C 07/20/19 21:29 Pulse 80 07/20/19 21:29 Resp 16 07/20/19 21:29 BP 136/88 07/20/19 21:29 Pulse Ox 100 07/20/19 21:29 - Orders/Labs/Meds Orders: Active Orders 24 hr Category Date Time Status Patient Status [ADT] Routine ADT 07/20/19 21:34 Ordered Cardiac Monitoring [RC] . DIRECTED Care 07/20/19 20:59 Active Cardiac Monitoring [RC] CONTINUOUS Care 07/20/19 21:36 Ordered EKG Documentation Completion [RC] STAT Care 07/20/19 21:00 Active Height and Weight [RC] UPON Care 07/20/19 21:34 Ordered Intake and Output [RC] QSHIFT Care 07/20/19 21:36 Ordered Oxygen Therapy [RC] PRN Care 07/20/19 21:34 Ordered Up ad Sydnee [RC] ASDIRECTED Care 07/20/19 21:34 Ordered VTE/DVT Education [RC] PER UNIT ROUTINE Care 07/20/19 21:34 Ordered Vital Signs [RC] Q4H Care 09/14/19 21:34 Ordered 2 Gram Sodium Diet [DIET] Diet 07/21/19 Breakfast Ordered Chest 2V [CR] Stat Exams 07/20/19 20:58 Taken BASIC METABOLIC PANEL,BMP [CHEM] AM Lab 07/21/19 05:11 Ordered CBC WITH AUTO DIFF [HEME] AM Lab 07/21/19 05:11 Ordered MAGNESIUM [CHEM] AM Lab 07/21/19 05:11 Ordered OCCULT BLOOD SCREEN [OP] Stat Lab 07/20/19 21:30 Results TROPONIN I [CHEM] AM Lab 07/21/19 05:11 Ordered Acetaminophen/HYDROcodone [[place] 325-5 MG] Med 07/20/19 21:39 Ordered 1 tab PO Q6H PRN Albuterol [Ventolin HFA] Med 07/20/19 21:39 Ordered 2 puff INH Q4H PRN Carvedilol [Coreg] Med 07/21/19 08:00 Ordered 6.25 mg PO BID Cyanocobalamin (Vitamin B12) [Vitamin B12] Med 07/21/19 08:00 Ordered 2,000 mcg PO DAILY Losartan [Cozaar] Med 07/21/19 08:00 Ordered 12.5 mg PO DAILY Magnesium [Magnesium] Med 07/21/19 08:00 Ordered 250 mg PO DAILY Multivitamin [Multivitamins] Med 07/21/19 08:00 Ordered 1 tab PO DAILY Nitroglycerin [Nitro-Bid 2%] Med 07/20/19 21:41 Ordered 1 gm TOP Q6H PRN Omeprazole [Omeprazole] Med 07/21/19 08:00 Ordered 20 mg PO DAILY Potassium Chloride [Klor-Con M20] Med 07/21/19 08:00 Ordered 20 meq PO DAILY Sodium Chloride 0.9% [Saline Flush] Med 07/20/19 21:34 Ordered 10 ml FLUSH ASDIRECTED PRN Thiamine HCl [Vitamin B-1] Med 07/21/19 08:00 Ordered 250 mg PO DAILY Saline Lock Insert [OM.PC] Routine Oth 07/20/19 21:34 Ordered Resuscitation Status Routine Resus Stat 07/20/19 21:34 Ordered EKG 12 Lead [EK] AM Ther 07/21/19 05:11 Ordered Medication Orders Hydrocodone Bitart/Acetaminophen ([place] 325-5 Mg) 1 tab PO Q6H PRN PRN Reason: Pain Albuterol (Ventolin Hfa) 0 gm INH Q4H PRN PRN Reason: Shortness of Breath Carvedilol (Coreg) 6.25 mg PO BID [facility] Cyanocobalamin (Vitamin B12) 2,000 mcg PO DAILY [facility] Losartan Potassium (Cozaar) 12.5 mg PO DAILY [facility] Nitroglycerin (Nitro-Bid 2%) 1 gm TOP Q6H PRN PRN Reason: Chest Pain Non-Formulary Medication (Magnesium [Magnesium]) 250 mg PO DAILY [facility] Non-Formulary Medication (Multivitamin [Multivitamins]) 1 tab PO DAILY [facility] Non-Formulary Medication (Omeprazole [Omeprazole]) 20 mg PO DAILY [facility] Non-Formulary Medication (Potassium Chloride [Klor-Con M20]) 20 meq PO DAILY [facility] Non-Formulary Medication (Thiamine Hcl [Vitamin B-1]) 250 mg PO DAILY [facility] Sodium Chloride (Saline Flush) 10 ml FLUSH ASDIRECTED PRN PRN Reason: Keep Vein Open Labs: Laboratory Tests 07/20/19 07/20/19 07/20/19 Range/Units 21:08 21:08 21:08 WBC 4.9 L (5.0-10.0) 10^3/uL RBC 4.05 (4.00-5.50) 10^6/uL Hgb 12.7 (12.0-16.0) g/dL Hct 35.8 L (37.0-47.0) % MCV 88.4 (82.0-94.0) fL MCH 31.4 (27.0-32.0) pg MCHC 35.5 (33.0-38.0) g/dL RDW Coeff of Mookie 16.6 H (11.0-15.0) % Plt Count 147 L (150-400) 10^3/uL Neut % (Auto) 50.6 (35-85) % Lymph % (Auto) 34.6 (10-55) % [place] % (Auto) 11.7 (0-16) % Eos % (Auto) 2.7 (0-5) % Baso % (Auto) 0.4 (0-3) % Neut # (Auto) 2.48 (1.80-7.00) 10^3/uL Lymph # (Auto) 1.69 (1.00-4.80) 10^3/uL [place] # (Auto) 0.57 (0.00-0.80) 10^3/uL Eos # (Auto) 0.13 (0.00-0.45) 10^3/uL Baso # (Auto) 0.02 10^3/uL PT 48.8 H (9.7-12.3) SEC INR 5.20 H* (0.92-1.18) APTT 60.1 H (23.2-32.3) SEC Sodium 126 L (136-145) mEq/L Potassium 4.1 (3.5-5.0) mEq/L Chloride 93 L (98-106) mEq/L Carbon Dioxide 21 (21-32) mmol/L BUN 6 L D (7-18) mg/dL Creatinine 0.7 (0.6-1.0) mg/dL Est Cr Clr Drug Dosing 71.03 mL/min Estimated GFR (MDRD) > 60 (>=60) mL/min Glucose 87 (75-99) mg/dL Calcium 8.4 (8.4-10.1) mg/dL Troponin I < 0.017 (0.00-0.06) ng/mL NT-Pro-B Natriuret Pep 601 (0-1000) pg/mL Meds: Medications Generic Name Dose Route Start Last Admin Trade Name Freq PRN Reason Stop Dose Admin Hydrocodone Bitart/Acetaminophen 1 tab 07/20/19 21:39 [place] 325-5 Mg PO Q6H PRN Pain Albuterol 0 gm 07/20/19 21:39 Ventolin Hfa INH Q4H PRN Shortness of Breath Carvedilol 6.25 mg 07/21/19 08:00 Coreg PO BID [facility] Cyanocobalamin 2,000 mcg 07/21/19 08:00 Vitamin B12 PO DAILY [facility] Losartan Potassium 12.5 mg 07/21/19 08:00 Cozaar PO DAILY [facility] Nitroglycerin 1 gm 07/20/19 21:41 Nitro-Bid 2% TOP Q6H PRN Chest Pain Non-Formulary Medication 250 mg 07/21/19 08:00 Magnesium [Magnesium] PO DAILY [facility] Non-Formulary Medication 1 tab 07/21/19 08:00 Multivitamin [Multivitamins] PO DAILY [facility] Non-Formulary Medication 20 mg 07/21/19 08:00 Omeprazole [Omeprazole] PO DAILY [facility] Non-Formulary Medication 20 meq 07/21/19 08:00 Potassium Chloride [Klor-Con M20] PO DAILY [facility] Non-Formulary Medication 250 mg 07/21/19 08:00 Thiamine Hcl [Vitamin B-1] PO DAILY [facility] Sodium Chloride 10 ml 07/20/19 21:34 Saline Flush FLUSH ASDIRECTED PRN Keep Vein Open - Radiology Interpretation Free Text/Narrative:: cxr unchanged from previous, radiology reading pending Departure - Departure Time of Disposition: 21:41 Disposition: Refer to Observation Condition: Good Clinical Impression: Chest pain, Hyponatremia, Over-anticoagulated Forms: ED Department Discharge - Problem List & Annotations (1) Chest pain SNOMED Code(s): 02140681 Code(s): R07.9 - CHEST PAIN, UNSPECIFIED Status: Acute Priority: High Qualifiers: Ischemic chest pain type: unspecified angina pectoris type (2) Hyponatremia SNOMED Code(s): 60306377 Code(s): E87.1 - HYPO-OSMOLALITY AND HYPONATREMIA Status: Acute Priority : High (3) Over-anticoagulated SNOMED Code(s): 91416884, 097760999 Code(s): VPQ3133 - Status: Acute Priority: High - Problem List Review Problem List Initiated/Reviewed/Updated: Yes - My Orders Last 24 Hours: My Active Orders 07/20/19 20:58 Chest 2V [CR] Stat 07/20/19 20:59 Cardiac Monitoring [RC] . DIRECTED 07/20/19 21:00 EKG Documentation Completion [RC] STAT 07/20/19 21:30 OCCULT BLOOD SCREEN [OP] Stat 07/20/19 21:34 Patient Status [ADT] Routine Height and Weight [RC] UPON Oxygen Therapy [RC] PRN Up ad Sydnee [RC] ASDIRECTED VTE/DVT Education [RC] PER UNIT ROUTINE Vital Signs [RC] Q4H Sodium Chloride 0.9% [Saline Flush] 10 ml FLUSH ASDIRECTED PRN Saline Lock Insert [OM.PC] Routine Resuscitation Status Routine 07/20/19 21:36 Cardiac Monitoring [RC] CONTINUOUS Intake and Output [RC] QSHIFT 07/20/19 21:39 Acetaminophen/HYDROcodone [[place] 325-5 MG] 1 tab PO Q6H PRN Albuterol [Ventolin HFA] 2 puff INH Q4H PRN 07/20/19 21:41 Nitroglycerin [Nitro-Bid 2%] 1 gm TOP Q6H PRN 07/21/19 05:11 BASIC METABOLIC PANEL,BMP [CHEM] AM CBC WITH AUTO DIFF [HEME] AM MAGNESIUM [CHEM] AM TROPONIN I [CHEM] AM EKG 12 Lead [EK] AM 07/21/19 08:00 Carvedilol [Coreg] 6.25 mg PO BID Cyanocobalamin (Vitamin B12) [Vitamin B12] 2,000 mcg PO DAILY Losartan [Cozaar] 12.5 mg PO DAILY Magnesium [Magnesium] 250 mg PO DAILY Multivitamin [Multivitamins] 1 tab PO DAILY Omeprazole [Omeprazole] 20 mg PO DAILY Potassium Chloride [Klor-Con M20] 20 meq PO DAILY Thiamine HCl [Vitamin B-1] 250 mg PO DAILY 07/21/19 Breakfast 2 Gram Sodium Diet [DIET] - Assessment/Plan Admission H&P: Please use this note as an admission H&P Last 24 Hours: My Active Orders 07/20/19 20:58 Chest 2V [CR] Stat 07/20/19 20:59 Cardiac Monitoring [RC] . DIRECTED 07/20/19 21:00 EKG Documentation Completion [RC] STAT 07/20/19 21:30 OCCULT BLOOD SCREEN [OP] Stat 07/20/19 21:34 Patient Status [ADT] Routine Height and Weight [RC] UPON Oxygen Therapy [RC] PRN Up ad Sydnee [RC] ASDIRECTED VTE/DVT Education [RC] PER UNIT ROUTINE Vital Signs [RC] Q4H Sodium Chloride 0.9% [Saline Flush] 10 ml FLUSH ASDIRECTED PRN Saline Lock Insert [OM.PC] Routine Resuscitation Status Routine 07/20/19 21:36 Cardiac Monitoring [RC] CONTINUOUS Intake and Output [RC] QSHIFT 07/20/19 21:39 Acetaminophen/HYDROcodone [[place] 325-5 MG] 1 tab PO Q6H PRN Albuterol [Ventolin HFA] 2 puff INH Q4H PRN 07/20/19 21:41 Nitroglycerin [Nitro-Bid 2%] 1 gm TOP Q6H PRN 07/21/19 05:11 BASIC METABOLIC PANEL,BMP [CHEM] AM CBC WITH AUTO DIFF [HEME] AM MAGNESIUM [CHEM] AM TROPONIN I [CHEM] AM EKG 12 Lead [EK] AM 07/21/19 08:00 Carvedilol [Coreg] 6.25 mg PO BID Cyanocobalamin (Vitamin B12) [Vitamin B12] 2,000 mcg PO DAILY Losartan [Cozaar] 12.5 mg PO DAILY Magnesium [Magnesium] 250 mg PO DAILY Multivitamin [Multivitamins] 1 tab PO DAILY Omeprazole [Omeprazole] 20 mg PO DAILY Potassium Chloride [Klor-Con M20] 20 meq PO DAILY Thiamine HCl [Vitamin B-1] 250 mg PO DAILY 07/21/19 Breakfast 2 Gram Sodium Diet [DIET] Plan: the pt will be admitted to observation, her Coumadin will be held, an INR will be check on Monday, the pt will be given NTG paste for cp, her fluids will be restricted secondary to her hyponatremia, her cbc and bmp will be rechecked in the am. changes to the course will be made as her assessment changes and from lab results. as there in no active bleeding, the pts Coumadin will be held tomorrow and INR repeated on Monday vs giving vit K.
[2019-07-20 21:30] LABS: CHLORIDE,CL 93 mEq/L (98-106); SODIUM,NA 126 mEq/L (136-145)
[2019-07-20] MEDS ORDERED: Sodium Chloride 0.9% 10 ML Syringe FLUSH PRN (21:34)
[2019-07-20] MEDS ORDERED: Albuterol 8 GM Inhaler INH PRN (21:39)
[2019-07-20] MEDS ORDERED: Acetaminophen/HYDROcodone 325-5 MG Tab PO PRN (21:39)
[2019-07-20] MEDS ORDERED: Nitroglycerin 2% Oint 1 GM UD Packet TOP PRN (21:41)
[2019-07-21] MEDS: OMEPRAZOLE 20 MG PO SCH (06:32)
[2019-07-21 07:30] LABS: CHLORIDE,CL 101 mEq/L (98-106); SODIUM,NA 135 mEq/L (136-145)
[2019-07-21] MEDS: LOSARTAN 25 MG PO SCH (08:47)
[2019-07-21] MEDS: POTASSIUM 20 MEQ PO SCH (08:48)
[2019-07-21] MEDS: Cyanocobalamin (Vitamin B12) 1,000 MCG Tab PO SCH (08:49)
[2019-07-21] MEDS: Thiamine 100 MG Tab PO SCH (08:49)
[2019-07-21] MEDS: Multivitamin Tab PO SCH (08:50)
[2019-07-21] MEDS ORDERED: Magnesium Sulfate/D5W 2 GM in Premix Bag 1 BAG IV ONE (09:26)
--- NOTE | 2019-07-21 09:34 | PCM.PN ---
- General Info Date of Service: 07/21/19 Admission Dx/Problem (Free Text): chest pain, hyper-anticoagulated, hyponatremia Functional Status: Reports: Pain Controlled - Review of Systems General: Reports: No Symptoms. Denies: Fever, Weakness HEENT: Reports: No Symptoms Pulmonary: Reports: No Symptoms. Denies: Shortness of Breath Cardiovascular: Reports: No Symptoms. Denies: Chest Pain Gastrointestinal: Reports: No Symptoms. Denies: Abdominal Pain, Nausea, Vomiting Genitourinary: Reports: No Symptoms Musculoskeletal: Reports: No Symptoms. Denies: Neck Pain, Back Pain Skin: Reports: No Symptoms Neurological: Reports: No Symptoms. Denies: Dizziness, Headache Psychiatric: Reports: No Symptoms - Patient Data Vitals - Most Recent: Last Vital Signs Temp 36.3 C 07/21/19 07:45 Pulse 80 07/21/19 08:46 Resp 14 07/21/19 07:45 BP 137/73 07/21/19 08:47 Pulse Ox 99 07/21/19 07:45 Weight - Most Recent: 83.688 kg I&O - Last 24 Hours: Intake & Output 07/20/19 07/21/19 07/21/19 22:59 06:59 14:59 Intake Total 300 200 Output Total 300 2000 300 Balance -300 -1700 -100 Lab Results Last 24 Hours: Laboratory Results - last 24 hr 07/20/19 07/20/19 07/20/19 Range/Units 21:08 21:08 21:08 WBC 4.9 L (5.0-10.0) 10^3/uL RBC 4.05 (4.00-5.50) 10^6/uL Hgb 12.7 (12.0-16.0) g/dL Hct 35.8 L (37.0-47.0) % MCV 88.4 (82.0-94.0) fL MCH 31.4 (27.0-32.0) pg MCHC 35.5 (33.0-38.0) g/dL RDW Coeff of Mookie 16.6 H (11.0-15.0) % Plt Count 147 L (150-400) 10^3/uL Neut % (Auto) 50.6 (35-85) % Lymph % (Auto) 34.6 (10-55) % [place] % (Auto) 11.7 (0-16) % Eos % (Auto) 2.7 (0-5) % Baso % (Auto) 0.4 (0-3) % Neut # (Auto) 2.48 (1.80-7.00) 10^3/uL Lymph # (Auto) 1.69 (1.00-4.80) 10^3/uL [place] # (Auto) 0.57 (0.00-0.80) 10^3/uL Eos # (Auto) 0.13 (0.00-0.45) 10^3/uL Baso # (Auto) 0.02 10^3/uL PT 48.8 H (9.7-12.3) SEC INR 5.20 H* (0.92-1.18) APTT 60.1 H (23.2-32.3) SEC Sodium 126 L (136-145) mEq/L Potassium 4.1 (3.5-5.0) mEq/L Chloride 93 L (98-106) mEq/L Carbon Dioxide 21 (21-32) mmol/L BUN 6 L D (7-18) mg/dL Creatinine 0.7 (0.6-1.0) mg/dL Est Cr Clr Drug Dosing 71.03 mL/min Estimated GFR (MDRD) > 60 (>=60) mL/min Glucose 87 (75-99) mg/dL Calcium 8.4 (8.4-10.1) mg/dL Magnesium (1.8-2.4) mg/dL Troponin I < 0.017 (0.00-0.06) ng/mL NT-Pro-B Natriuret Pep 601 (0-1000) pg/mL 07/21/19 07/21/19 Range/Units 06:50 06:50 WBC 3.4 L (5.0-10.0) 10^3/uL RBC 3.95 L (4.00-5.50) 10^6/uL Hgb 12.2 (12.0-16.0) g/dL Hct 35.5 L (37.0-47.0) % MCV 89.9 (82.0-94.0) fL MCH 30.9 (27.0-32.0) pg MCHC 34.4 (33.0-38.0) g/dL RDW Coeff of Mookie 17.0 H (11.0-15.0) % Plt Count 124 L (150-400) 10^3/uL Neut % (Auto) 39.6 (35-85) % Lymph % (Auto) 41.6 (10-55) % [place] % (Auto) 12.3 (0-16) % Eos % (Auto) 5.3 H (0-5) % Baso % (Auto) 1.2 (0-3) % Neut # (Auto) 1.35 L (1.80-7.00) 10^3/uL Lymph # (Auto) 1.42 (1.00-4.80) 10^3/uL [place] # (Auto) 0.42 (0.00-0.80) 10^3/uL Eos # (Auto) 0.18 (0.00-0.45) 10^3/uL Baso # (Auto) 0.04 10^3/uL PT (9.7-12.3) SEC INR (0.92-1.18) APTT (23.2-32.3) SEC Sodium 135 L (136-145) mEq/L Potassium 4.1 (3.5-5.0) mEq/L Chloride 101 (98-106) mEq/L Carbon Dioxide 25 (21-32) mmol/L BUN 4 L (7-18) mg/dL Creatinine 0.6 (0.6-1.0) mg/dL Est Cr Clr Drug Dosing 82.87 mL/min Estimated GFR (MDRD) > 60 (>=60) mL/min Glucose 62 L D (75-99) mg/dL Calcium 8.5 (8.4-10.1) mg/dL Magnesium 1.6 L (1.8-2.4) mg/dL Troponin I < 0.017 (0.00-0.06) ng/mL NT-Pro-B Natriuret Pep (0-1000) pg/mL Raimundo Results Last 24 Hours: Microbiology 07/20/19 21:30 Occult Blood - Preliminary Stool / Feces Med Orders - Current: Current Medications Albuterol (Ventolin Hfa) 0 gm INH Q4H PRN PRN Reason: Shortness of Breath Carvedilol (Coreg) 6.25 mg PO BID [facility] Last Admin: 07/21/19 08:46 Dose: 6.25 mg Cyanocobalamin (Vitamin B12) 2,000 mcg PO DAILY [facility] Last Admin: 07/21/19 08:49 Dose: 2,000 mcg Magnesium Sulfate/Dextrose 2 (gm/ Premix) 200 mls @ 100 mls/hr IV ONETIME ONE Stop: 07/21/19 11:25 Losartan Potassium (Cozaar) 12.5 mg PO DAILY [facility] Last Admin: 07/21/19 08:47 Dose: 12.5 mg Magnesium Oxide (Magnesium Oxide) 250 mg PO DAILY [facility] Last Admin: 07/21/19 08:48 Dose: 250 mg Multivitamins/Minerals/Vitamin C (Tab-A-Yuli) 1 tab PO DAILY [facility] Last Admin: 07/21/19 08:50 Dose: 1 tab Nitroglycerin (Nitro-Bid 2%) 1 gm TOP Q6H PRN PRN Reason: Chest Pain Omeprazole 20 Mg (Own Med) 1 each PO ACBREAKFAST [facility] Last Admin: 07/21/19 06:32 Dose: 1 each Potassium 20meq (Own Med) 1 each PO DAILY [facility] Last Admin: 07/21/19 08:48 Dose: 1 each Sodium Chloride (Saline Flush) 10 ml FLUSH ASDIRECTED PRN PRN Reason: Keep Vein Open Thiamine HCl (Vitamin B-1) 250 mg PO DAILY [facility] Last Admin: 07/21/19 08:49 Dose: 250 mg Discontinued Medications Hydrocodone Bitart/Acetaminophen ([place] 325-5 Mg) 1 tab PO Q6H PRN PRN Reason: Pain Stop: 07/20/19 22:00 - Exam General: Alert, Oriented, Cooperative, No Acute Distress Neck: Supple, Trachea Midline Lungs: Clear to Auscultation, Normal Respiratory Effort Cardiovascular: Regular Rhythm, Murmurs GI/Abdominal Exam: Normal Bowel Sounds, Soft, Non-Tender Back Exam: Normal Inspection, Full Range of Motion Extremities: Normal Inspection, Normal Range of Motion, Non-Tender, No Pedal Edema, Normal Capillary Refill Peripheral Pulses: 2+: Radial (L), Radial (R) Skin: Warm, Dry, Intact Neurological: No New Focal Deficit Psy/Mental Status: Alert, Normal Affect, Normal Mood EKG INTERPRETATION EKG Date: 07/21/19 Time: 07:34 Rhythm: Other (pacer) EKG Interpretation Comments: vent pacer - Problem List & Annotations (1) Chest pain SNOMED Code(s): 34270827 Code(s): R07.9 - CHEST PAIN, UNSPECIFIED Status: Acute Priority: High Current Visit: No Qualifiers: Ischemic chest pain type: unspecified angina pectoris type (2) Hyponatremia SNOMED Code(s): 43037710 Code(s): E87.1 - HYPO-OSMOLALITY AND HYPONATREMIA Status: Acute Priority : High Current Visit: No (3) Over-anticoagulated SNOMED Code(s): 52682020, [id number] Code(s): OMR5503 - Status: Acute Priority: High Current Visit: No - Problem List Review Problem List Initiated/Reviewed/Updated: Yes - My Orders Last 24 Hours: My Active Orders 07/20/19 20:58 Chest 2V [CR] Stat 07/20/19 21:30 OCCULT BLOOD SCREEN [OP] Stat 07/20/19 21:34 Patient Status [ADT] Routine Height and Weight [RC] .PRN Oxygen Therapy [RC] .PRN Up ad Sydene [RC] .PRN Vital Signs [RC] 0000,0400,0800,1200,1600,2000 Sodium Chloride 0.9% [Saline Flush] 10 ml FLUSH ASDIRECTED PRN Saline Lock Insert [OM.PC] Routine Resuscitation Status Routine 07/20/19 21:36 Cardiac Monitoring [RC] 0800,2000 Intake and Output [RC] 0600,1800 07/20/19 21:39 Albuterol [Ventolin HFA] 0 gm INH Q4H PRN 07/20/19 21:41 Nitroglycerin [Nitro-Bid 2%] 1 gm TOP Q6H PRN 07/21/19 05:11 EKG 12 Lead [EK] AM 07/21/19 07:00 Non-Formulary Medication [NF Drug] 1 each PO ACBREAKFAST 07/21/19 07:44 EKG Documentation Completion [RC] URGENT 07/21/19 08:00 Carvedilol [Coreg] 6.25 mg PO BID Cyanocobalamin (Vitamin B12) [Vitamin B12] 2,000 mcg PO DAILY Losartan [Cozaar] 12.5 mg PO DAILY Magnesium Oxide 250 mg PO DAILY Multivitamins [Tab-A-Yuli] 1 tab PO DAILY Non-Formulary Medication [NF Drug] 1 each PO DAILY Thiamine [Vitamin B-1] 250 mg PO DAILY 07/21/19 09:26 Magnesium Sulfate/D5W [Magnesium Sulfate in D5W 100 Premix] 2 gm Premix Bag 1 bag IV ONETIME 07/21/19 Breakfast 2 Gram Sodium Diet [DIET] 07/22/19 06:00 INR,PT,PROTHROMBIN TIME [COAG] Routine - Plan Plan:: will continue to monitor pt, her sodium has returned to normal, will hold Coumadin today and repeat INR in am, will plan to dc in am
[2019-07-22] MEDS: OMEPRAZOLE 20 MG PO SCH (06:33)
[2019-07-22] MEDS: LOSARTAN 25 MG PO SCH (07:41)
[2019-07-22] MEDS: POTASSIUM 20 MEQ PO SCH (07:43)
[2019-07-22] MEDS: Thiamine 100 MG Tab PO SCH (07:44)
[2019-07-22] MEDS: Cyanocobalamin (Vitamin B12) 1,000 MCG Tab PO SCH (07:44)
[2019-07-22 07:46] VITALS: BP 151/84; PULSE 80
[2019-07-22] MEDS: Multivitamin Tab PO SCH (07:49)
[2019-07-22 08:36] LABS: CHLORIDE,CL 104 mEq/L (98-106); SODIUM,NA 139 mEq/L (136-145)
[2019-07-22] MEDS ORDERED: cefTRIAXone 1 GM Vial IM ONE (08:58)
--- NOTE | 2019-07-22 09:19 | PCM.DCSUM1 ---
Discharge Summary - Hospital Course Free Text/Narrative:: Patient presented to ER with multiple complaints. She had been experiencing upper respiratory symptoms for about a week. Had been taking Mucinex. Patient knew that INR was high as had a cut on her right arm and couldn't get it to stop bleeding for about 4 hours. Had not been eating differently. She was experiencing chest heaviness for about 4 hours prior to presentation to ER. Does have history of cardiac concerns. Cardiac work up was negative. Sodium was low at 126. INR 5.2. ProBNP 601. Troponin negative. Admitted for IV fluids. Cardiac monitoring. Coumadin held. Diagnosis: Stroke: No Modified Berwick Scale: No Symptoms at All Modified Janette Scale Score: 0 - Discharge Data Discharge Date: 07/22/19 Discharge Disposition: Home, Self-Care 01 Condition: Good - Referral to Home Health Primary Care Physician: PCP None - Patient Summary/Data Complications: none Hospital Course: Patient feeling good today. Does admit she still has sinus congestion and drainage. No further chest heaviness. No shortness of breath or chest pain. Sodium has returned normal now at 139. Potassium normal. Magnesium yesterday was 1.6, was given 2 gm of mag sulfate. Today, magnesium now 1.8. INR has stabilized at 2.28 today. Will resume Warfarin at 2.5 five days per week, 3.375 on Monday and . Given Rocephin 1 gm x1 for sinus symptoms. Advised to notify us later in the week if symptoms persist. Cardiac monitoring has been stable, troponin has remained negative. Discharge home. 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 - Patient Instructions Diet: Usual Diet as Tolerated Activity: As Tolerated - Discharge Plan *PRESCRIPTION DRUG MONITORING PROGRAM REVIEWED*: No *COPY OF PRESCRIPTION DRUG MONITORING REPORT IN PATIENT VANESSA: No Prescriptions/Med Rec: Warfarin [Coumadin] 2.5 mg PO SUMOWEFRSA #30 tab Warfarin [Coumadin] 3.375 mg PO DAILY #30 tab Home Medications: Home Meds Cyanocobalamin (Vitamin B-12) [Vitamin B-12] 2,000 mcg PO DAILY 10/23/15 [ History] Multivitamin [Multivitamins] 1 tab PO DAILY 10/23/15 [History] Albuterol Sulfate [Proair Hfa] 2 puff IH Q4H PRN 04/06/16 [History] Furosemide [Lasix] 40 mg PO DAILY PRN 06/22/16 [History] Magnesium 250 mg PO DAILY 02/15/17 [History] Phytonadione [Vitamin K] 200 mcg PO DAILY 02/15/17 [History] Potassium Chloride [Klor-Con M20] 20 meq PO DAILY 02/15/17 [History] Losartan Potassium 12.5 mg PO DAILY 10/28/18 [History] Carvedilol 6.25 mg PO BID 07/20/19 [History] Omeprazole 20 mg PO DAILY 07/20/19 [History] Thiamine HCl [Vitamin B-1] 250 mg PO DAILY 07/20/19 [History] Warfarin [Coumadin] 2.5 mg PO SUMOWEFRSA #30 tab 07/22/19 [Rx] Warfarin [Coumadin] 3.375 mg PO DAILY #30 tab 07/22/19 [Rx] Forms: ED Department Discharge Referrals: PCP,None [Primary Care Provider] - - Discharge Summary/Plan Comment DC Time >30 min.: No - General Info Date of Service: 07/22/19 Admission Dx/Problem (Free Text: chest pain, hyper-anticoagulated, hyponatremia Functional Status: Reports: Pain Controlled, Tolerating Diet, Ambulating - Review of Systems General: Reports: Malaise. Denies: Fever, Weakness, Fatigue HEENT: Reports: Sinus Congestion. Denies: Ear Pain, Sore Throat Pulmonary: Denies: Shortness of Breath, Cough, Wheezing Cardiovascular: Denies: Chest Pain, Edema, Lightheadedness Gastrointestinal: Denies: Abdominal Pain, Hematochezia, Melena, Nausea, Vomiting Genitourinary: Reports: No Symptoms Musculoskeletal: Reports: No Symptoms Skin: Reports: No Symptoms Neurological: Reports: No Symptoms - Patient Data Vitals - Most Recent: Last Vital Signs Temp 98.2 F 07/22/19 08:00 Pulse 80 07/22/19 08:00 Resp 16 07/22/19 08:00 BP 151/84 H 07/22/19 08:00 Pulse Ox 100 07/22/19 08:00 Weight - Most Recent: 184 lb 8 oz I&O - Last 24 hours: Intake & Output 07/21/19 07/22/19 07/22/19 22:59 06:59 14:59 Intake Total 1115 100 Output Total 800 700 Balance 315 -600 Lab Results - Last 24 hrs: Laboratory Results - last 24 hr 07/22/19 07/22/19 07/22/19 Range/Units 07:00 07:00 08:26 WBC 3.2 L (5.0-10.0) 10^3/uL RBC 4.05 (4.00-5.50) 10^6/uL Hgb 12.8 (12.0-16.0) g/dL Hct 37.6 (37.0-47.0) % MCV 92.8 (82.0-94.0) fL MCH 31.6 (27.0-32.0) pg MCHC 34.0 (33.0-38.0) g/dL RDW Coeff of Mookie 17.8 H (11.0-15.0) % Plt Count 149 L (150-400) 10^3/uL Neut % (Auto) 49.9 (35-85) % Lymph % (Auto) 29.2 (10-55) % [place] % (Auto) 16.5 H (0-16) % Eos % (Auto) 3.8 (0-5) % Baso % (Auto) 0.6 (0-3) % Neut # (Auto) 1.57 L (1.80-7.00) 10^3/uL Lymph # (Auto) 0.92 L (1.00-4.80) 10^3/uL [place] # (Auto) 0.52 (0.00-0.80) 10^3/uL Eos # (Auto) 0.12 (0.00-0.45) 10^3/uL Baso # (Auto) 0.02 10^3/uL PT 22.4 H (9.7-12.3) SEC INR 2.28 H (0.92-1.18) Sodium 139 (136-145) mEq/L Potassium 3.5 (3.5-5.0) mEq/L Chloride 104 (98-106) mEq/L Carbon Dioxide 27 (21-32) mmol/L BUN 7 D (7-18) mg/dL Creatinine 0.7 (0.6-1.0) mg/dL Est Cr Clr Drug Dosing 71.03 mL/min Estimated GFR (MDRD) > 60 (>=60) mL/min Glucose 84 D (75-99) mg/dL Calcium 9.2 (8.4-10.1) mg/dL Magnesium 1.8 (1.8-2.4) mg/dL Med Orders - Current: Current Medications Albuterol (Ventolin Hfa) 0 gm INH Q4H PRN PRN Reason: Shortness of Breath Carvedilol (Coreg) 6.25 mg PO BID [facility] Last Admin: 07/22/19 07:39 Dose: 6.25 mg Cyanocobalamin (Vitamin B12) 2,000 mcg PO DAILY [facility] Last Admin: 07/22/19 07:44 Dose: 2,000 mcg Losartan Potassium (Cozaar) 12.5 mg PO DAILY [facility] Last Admin: 07/22/19 07:41 Dose: 12.5 mg Magnesium Oxide (Magnesium Oxide) 250 mg PO DAILY [facility] Last Admin: 07/22/19 07:42 Dose: 250 mg Multivitamins/Minerals/Vitamin C (Tab-A-Yuli) 1 tab PO DAILY [facility] Last Admin: 07/22/19 07:49 Dose: 1 tab Nitroglycerin (Nitro-Bid 2%) 1 gm TOP Q6H PRN PRN Reason: Chest Pain Omeprazole 20 Mg (Own Med) 1 each PO ACBREAKFAST [facility] Last Admin: 07/22/19 06:33 Dose: 1 each Potassium 20meq (Own Med) 1 each PO DAILY [facility] Last Admin: 07/22/19 07:43 Dose: 1 each Sodium Chloride (Saline Flush) 10 ml FLUSH ASDIRECTED PRN PRN Reason: Keep Vein Open Thiamine HCl (Vitamin B-1) 250 mg PO DAILY [facility] Last Admin: 07/22/19 07:44 Dose: 250 mg Discontinued Medications Hydrocodone Bitart/Acetaminophen ([place] 325-5 Mg) 1 tab PO Q6H PRN PRN Reason: Pain Stop: 07/20/19 22:00 Ceftriaxone Sodium (Rocephin) 1 gm IM ONETIME ONE Stop: 07/22/19 08:59 Magnesium Sulfate/Dextrose 2 (gm/ Premix) 200 mls @ 100 mls/hr IV ONETIME ONE Stop: 07/21/19 11:25 Last Infusion: 07/21/19 11:58 Dose: Infused - Exam General: Reports: Alert, Oriented HEENT: Reports: Mucous Membr. Moist/[place] Neck: Reports: Supple Lungs: Reports: Clear to Auscultation, Normal Respiratory Effort Cardiovascular: Reports: Regular Rate, Regular Rhythm GI/Abdominal Exam: Normal Bowel Sounds, Soft, Non-Tender Extremities: Normal Inspection, No Pedal Edema Skin: Reports: Warm, Dry Neurological: Reports: No New Focal Deficit
== END 2019-07-22 10:15 | disposition home or self-care (01) ==
LOC: CC.ED 20:57 → CC.MS 21:34 → UNDOADMOB 22:01 → CC.MS 22:01
PROVIDERS: ADMIT Nurse Practitioner; ATTEND Family Medicine
DX: R07.9 Chest pain, unspecified (principal); E87.1 Hypo-osmolality and hyponatremia; I10 Essential (primary) hypertension; J45.909 Unspecified asthma, uncomplicated; M19.90 Unspecified osteoarthritis, unspecified site; Z79.01 Long term (current) use of anticoagulants; Z79.899 Other long term (current) drug therapy; Z88.1 Allergy status to other antibiotic agents
CPT/HCPCS: 36415; 71046; 80048; 82270; 83735; 83880; 84484; 85025; 85610; 85730; 93005; 96372; 96374; 99285-25; A9270-GY; G0378; J0696; J3475

== ENCOUNTER 2020-05-21 21:50 | Observation (INO) | payer BC ==
--- NOTE | 2020-05-21 22:09 | EDM.PDOC ---
ED HPI GENERAL MEDICAL PROBLEM - General Chief Complaint: Gastrointestinal Problem Stated Complaint: burgandy stools Time Seen by Provider: 05/21/20 22:03 Source of Information: Reports: Patient History Limitations: Reports: No Limitations - History of Present Illness INITIAL COMMENTS - FREE TEXT/NARRATIVE: pt states that her INR was over 6 yesterday and she had 2 black stools and then today she had a looser stool and about 2000 tonight she had a watery burgundy stool. she was going to wait and come into the clinic in the AM but started to feel lightheaded and not well. She denies any pain at this time. She has history of GI bleed in the past. Onset: Gradual Location: Reports: Abdomen - Related Data Allergies Allergy/AdvReac Type Severity Reaction Status Date / Time erythromycin ethylsuccinate Allergy Rash Verified 07/20/19 21:16 [From [facility] Home Meds: Home Meds Cyanocobalamin (Vitamin B-12) [Vitamin B-12] 2,000 mcg PO DAILY 10/23/15 [History] Multivitamin [Multivitamins] 1 tab PO DAILY 10/23/15 [History] Furosemide [Lasix] 40 mg PO DAILY PRN 06/22/16 [History] Magnesium 500 mg PO DAILY 02/15/17 [History] Phytonadione [Vitamin K] 200 mcg PO DAILY 02/15/17 [History] Potassium Chloride [Klor-Con M20] 20 meq PO DAILY 02/15/17 [History] Losartan Potassium 12.5 mg PO DAILY 10/28/18 [History] Thiamine HCl [Vitamin B-1] 250 mg PO DAILY 07/20/19 [History] carvediloL [Carvedilol] 6.25 mg PO DAILY 07/20/19 [History] Warfarin [Coumadin] 2.5 mg PO SUTUWETHSA 05/21/20 [History] Warfarin [Coumadin] 5 mg PO MOFR 05/21/20 [History] Past Medical History HEENT History: Reports: Impaired Vision Other HEENT History: PATIENT WEARS GLASSSES Cardiovascular History: Reports: Afib, Automatic Implantable Cardioverter Defibrillators, Heart Valve Replacement, Pacemaker, Prior Cardiac Arrest Other Cardiovascular History: hypertension prior to gastric bypass; has since resolved Respiratory History: Reports: Asthma Other Respiratory History: sleep apnea prior to gastric bypass; has since resolved Gastrointestinal History: Reports: GERD, GI Bleed Other Gastrointestinal History: GIB in September 2015 - treated in [place] [employer] History: Reports: None Musculoskeletal History: Reports: Fracture, Osteoarthritis Other Musculoskeletal History: OA in knees; total knee replacements Psychiatric History: Reports: Depression Hematologic History: Reports: B12 Deficiency, Iron Deficiency Other Hematologic History: Iron infusion in October 2015; B12 supplements since gastric bypass - Infectious Disease History Infectious Disease History: Reports: None - Past Surgical History HEENT Surgical History: Reports: Tonsillectomy Cardiovascular Surgical History: Reports: AICD, Valve Replacement GI Surgical History: Reports: Appendectomy, Bariatric Procedure, Cholecystectomy Female Surgical History: Reports: Section, D&C, Tubal Ligation Musculoskeletal Surgical History: Reports: Knee Replacement Social & Family History - Family History Family Medical History: Noncontributory - Tobacco Use Smoking Status *Q: Never Smoker - Caffeine Use Caffeine Use: Reports: None - Recreational Drug Use Recreational Drug Use: No ED ROS GENERAL - Review of Systems Review Of Systems: See Below Constitutional: Reports: No Symptoms. Denies: Fever, Chills HEENT: Reports: No Symptoms Respiratory: Reports: No Symptoms. Denies: Shortness of Breath Cardiovascular: Reports: No Symptoms. Denies: Chest Pain GI/Abdominal: Reports: Black Stool, Bloody Stool, Diarrhea. Denies: Abdominal Pain Musculoskeletal: Reports: No Symptoms Skin: Reports: No Symptoms Neurological: Reports: No Symptoms Psychiatric: Reports: No Symptoms ED EXAM, GI/ABD - Physical Exam Exam: See Below Exam Limited By: No Limitations General Appearance: Alert, WD/WN, No Apparent Distress Ears: Normal External Exam, Normal Canal Nose: Normal Inspection Throat/Mouth: Normal Inspection, Normal Oropharynx Head: Atraumatic, Normocephalic Neck: Normal Inspection, Supple, Non-Tender Respiratory/Chest: No Respiratory Distress, Lungs Clear, Normal Breath Sounds Cardiovascular: Regular Rate, Rhythm, No Edema GI/Abdominal Exam: Normal Bowel Sounds, Soft, Non-Tender, No Organomegaly, Other (rectal exam is positive for burgandy stool that is occult positive.) Rectal (Female) Exam: Normal Rectal Tone, Bloody Stool, Heme + Stool. No: Hemorrhoids, Mass, Tenderness Extremities: Normal Inspection, No Pedal Edema, Normal Capillary Refill Neurological: Alert, Oriented Psychiatric: Normal Affect Skin Exam: Warm, Dry, Intact Course - Vital Signs Last Recorded V/S: Last Vital Signs Temp 97.7 F 05/21/20 21:51 Pulse 82 05/21/20 21:51 Resp 18 05/21/20 21:51 BP 115/73 05/21/20 21:51 Pulse Ox 98 05/21/20 21:51 - Orders/Labs/Meds Orders: Active Orders 24 hr Category Date Time Status Pantoprazole [ProTONIX IV] Med 05/21/20 23:45 Active 40 mg IVPUSH Q24H Sodium Chloride 0.9% [Normal Saline] 1,000 ml Med 05/21/20 23:45 Active IV ASDIRECTED Medication Orders Sodium Chloride (Normal Saline) 1,000 mls @ 100 mls/hr IV ASDIRECTED [facility] Last Admin: 05/21/20 23:47 Dose: 100 mls/hr Documented by: SHELIA Pantoprazole Sodium (Protonix Iv) 40 mg IVPUSH Q24H [facility] Last Admin: 05/21/20 23:47 Dose: 40 mg Documented by: SHELIA Labs: Laboratory Tests 05/21/20 05/21/20 05/21/20 Range/Units 22:40 22:40 22:43 WBC 6.5 (5.0-10.0) 10^3/uL RBC 2.88 L (4.00-5.50) 10^6/uL Hgb 8.9 L (12.0-16.0) g/dL Hct 26.5 L (37.0-47.0) % MCV 92.0 (82.0-94.0) fL MCH 30.9 (27.0-32.0) pg MCHC 33.6 (33.0-38.0) g/dL RDW Coeff of Mookie 14.1 (11.0-15.0) % Plt Count 176 (150-400) 10^3/uL Neut % (Auto) 71.9 (35-85) % Lymph % (Auto) 15.0 (10-55) % [place] % (Auto) 11.0 (0-16) % Eos % (Auto) 1.5 (0-5) % Baso % (Auto) 0.6 (0-3) % Neut # (Auto) 4.64 (1.80-7.00) 10^3/uL Lymph # (Auto) 0.97 L (1.00-4.80) 10^3/uL [place] # (Auto) 0.71 (0.00-0.80) 10^3/uL Eos # (Auto) 0.10 (0.00-0.45) 10^3/uL Baso # (Auto) 0.04 10^3/uL PT 36.5 H (9.7-12.3) SEC INR 3.66 H (0.92-1.18) Sodium 138 (136-145) mEq/L Potassium 4.5 D (3.5-5.0) mEq/L Chloride 102 (98-106) mEq/L Carbon Dioxide 22 (21-32) mmol/L BUN 22 H D (7-18) mg/dL Creatinine 0.8 (0.6-1.0) mg/dL Est Cr Clr Drug Dosing 61.35 mL/min Estimated GFR (MDRD) > 60 (>=60) mL/min Glucose 117 H D (75-99) mg/dL Calcium 8.6 (8.4-10.1) mg/dL Total Bilirubin 0.7 (0.0-1.0) mg/dL AST 19 (15-37) U/L ALT 16 (12-78) U/L Alkaline Phosphatase 73 (46-116) U/L Total Protein 6.1 L (6.4-8.2) g/dL Albumin 2.7 L (3.4-5.0) g/dL Amylase 19 L (25-115) U/L Urine Color (YELLOW) Urine Appearance (CLEAR) Urine pH (4.5-8.0) Ur Specific [place] (1.003-1.020) Urine Protein (NEGATIVE) mg/dL Urine Glucose (UA) (NEGATIVE) mg/dL Urine Ketones (NEGATIVE) mg/dL Urine Occult Blood (NEGATIVE) Urine Nitrite (NEGATIVE) Urine Bilirubin (NEGATIVE) Urine Urobilinogen (0.2-1.0) EU/dL Ur Leukocyte Esterase (NEGATIVE) Urine RBC (0-5) /HPF Urine WBC (0-5) /HPF Ur Squamous Epith Cells (NOT SEEN) /HPF 16/ Range/Units 22:50 WBC (5.0-10.0) 10^3/uL RBC (4.00-5.50) 10^6/uL Hgb (12.0-16.0) g/dL Hct (37.0-47.0) % MCV (82.0-94.0) fL MCH (27.0-32.0) pg MCHC (33.0-38.0) g/dL RDW Coeff of [place] (11.0-15.0) % Plt Count (150-400) 10^3/uL Neut % (Auto) (35-85) % Lymph % (Auto) (10-55) % [place] % (Auto) (0-16) % Eos % (Auto) (0-5) % Baso % (Auto) (0-3) % Neut # (Auto) (1.80-7.00) 10^3/uL Lymph # (Auto) (1.00-4.80) 10^3/uL [place] # (Auto) (0.00-0.80) 10^3/uL Eos # (Auto) (0.00-0.45) 10^3/uL Baso # (Auto) 10^3/uL PT (9.7-12.3) SEC INR (0.92-1.18) Sodium (136-145) mEq/L Potassium (3.5-5.0) mEq/L Chloride (98-106) mEq/L Carbon Dioxide (21-32) mmol/L BUN (7-18) mg/dL Creatinine (0.6-1.0) mg/dL Est Cr Clr Drug Dosing mL/min Estimated GFR (MDRD) (>=60) mL/min Glucose (75-99) mg/dL Calcium (8.4-10.1) mg/dL Total Bilirubin (0.0-1.0) mg/dL AST (15-37) U/L ALT (12-78) U/L Alkaline Phosphatase (46-116) U/L Total Protein (6.4-8.2) g/dL Albumin (3.4-5.0) g/dL Amylase (25-115) U/L Urine Color Yellow (YELLOW) Urine Appearance Clear (CLEAR) Urine pH 5.5 (4.5-8.0) Ur Specific [place] 1.015 (1.003-1.020) Urine Protein Negative (NEGATIVE) mg/dL Urine Glucose (UA) Negative (NEGATIVE) mg/dL Urine Ketones Negative (NEGATIVE) mg/dL Urine Occult Blood Trace-intact H (NEGATIVE) Urine Nitrite Negative (NEGATIVE) Urine Bilirubin Negative (NEGATIVE) Urine Urobilinogen 0.2 (0.2-1.0) EU/dL Ur Leukocyte Esterase Small H (NEGATIVE) Urine RBC 0-5 (0-5) /HPF Urine WBC 0-5 (0-5) /HPF Ur Squamous Epith Cells Moderate H (NOT SEEN) /HPF Meds: Medications Generic Name Dose Route Start Last Admin Trade Name Freq PRN Reason Stop Dose Admin Sodium Chloride 1,000 mls @ 100 mls/hr 05/21/20 23:45 05/21/20 23:47 Normal Saline IV 100 mls/hr ASDIRECTED [facility] Administration Pantoprazole Sodium 40 mg 05/21/20 23:45 05/21/20 23:47 Protonix Iv IVPUSH 40 mg Q24H [facility] Administration - Re-Assessments/Exams Free Text/Narrative Re-Assessment/Exam: 05/21/20 2330 In to discuss lab results and the need to admit and monitor hgb and hydrate and watch for further bleeding. She is in agreement to be admitted for observation at this time. Departure - Departure Time of Disposition: 23:40 Disposition: Refer to Observation Condition: Fair Clinical Impression: GI (gastrointestinal bleed) Qualifiers: GI bleed type/associated pathology: unspecified gastrointestinal hemorrhage type Qualified Code(s): K92.2 - Gastrointestinal hemorrhage, unspecified - Discharge Information *PRESCRIPTION DRUG MONITORING PROGRAM REVIEWED*: Not Applicable *COPY OF PRESCRIPTION DRUG MONITORING REPORT IN PATIENT VANESSA: Not Applicable Sepsis Event Note (ED) - Evaluation Sepsis Screening Result: No Definite Risk - Focused Exam Vital Signs: Vital Signs Temp Pulse Resp BP Pulse Ox 05/21/20 21:51 97.7 F 82 18 115/73 98 - Problem List & Annotations (1) Over-anticoagulated SNOMED Code(s): 02739383, 078906199 Code(s): ZKM1523 - Status: Acute Priority: High Current Visit: No (2) GI (gastrointestinal bleed) SNOMED Code(s): 17497577 Code(s): K92.2 - GASTROINTESTINAL HEMORRHAGE, UNSPECIFIED Status: Acute Current Visit: Yes Qualifiers: GI bleed type/associated pathology: unspecified gastrointestinal hemorrhage type Qualified Code(s): K92.2 - Gastrointestinal hemorrhage, unspecified - Problem List Review Problem List Initiated/Reviewed/Updated: Yes - My Orders Last 24 Hours: My Active Orders 05/21/20 23:45 Pantoprazole [ProTONIX IV] 40 mg IVPUSH Q24H Sodium Chloride 0.9% [Normal Saline] 1,000 ml IV ASDIRECTED - Assessment/Plan Admission H&P: Please use this note as an admission H&P Last 24 Hours: My Active Orders 05/21/20 23:45 Pantoprazole [ProTONIX IV] 40 mg IVPUSH Q24H Sodium Chloride 0.9% [Normal Saline] 1,000 ml IV ASDIRECTED Plan: pt will be admitted observation with Repeat cbc in the AM IV fluids NPO possible colonoscopy
[2020-05-21 23:00] LABS: CHLORIDE,CL 102 mEq/L (98-106); SODIUM,NA 138 mEq/L (136-145)
[2020-05-21] MEDS ORDERED: Pantoprazole 40 MG Vial IVPUSH SCH (23:45)
[2020-05-21] MEDS: Sodium Chloride 0.9% 1,000 ML IV SCH (23:47)
[2020-05-22 08:09] VITALS: BP 92/58; PULSE 80
[2020-05-22] MEDS: Sodium Chloride 0.9% 1,000 ML IV SCH (09:18)
[2020-05-22] MEDS ORDERED: Pantoprazole 40 MG Vial IVPUSH ONE (09:30)
== END 2020-05-22 11:05 ==
LOC: CC.ED 21:50 → UNDOADMOB 05-22 00:26 → CC.MS 05-22 00:26
PROVIDERS: ADMIT Physician Assistant Medical; ATTEND Family Medicine
DX: K92.2 Gastrointestinal hemorrhage, unspecified (principal); I10 Essential (primary) hypertension; J45.909 Unspecified asthma, uncomplicated; K21.9 Gastro-esophageal reflux disease without esophagitis; I48.91 Unspecified atrial fibrillation; F32.9 Major depressive disorder, single episode, unspecified; Z79.01 Long term (current) use of anticoagulants; Z88.1 Allergy status to other antibiotic agents; Z79.899 Other long term (current) drug therapy
CPT/HCPCS: 36415; 80053; 81001; 82150; 85025; 85610; 96361; 96374; 96376; 99284; C9113; G0378; J7030

== ENCOUNTER 2021-01-01 14:20 | Observation (INO) | payer BC ==
[2021-01-01 14:46] LABS: CHLORIDE,CL 91 mEq/L (98-106); SODIUM,NA 127 mEq/L (136-145)
--- NOTE | 2021-01-01 14:50 | EDM.PDOC ---
ED HPI GENERAL MEDICAL PROBLEM - General Chief Complaint: Trauma Stated Complaint: fall, on coumadin Time Seen by Provider: 01/01/21 14:31 Source of Information: Reports: Patient History Limitations: Reports: No Limitations - History of Present Illness INITIAL COMMENTS - FREE TEXT/NARRATIVE: This patient is a 65 year old female that presents to the ER via EMS. Patient reports that she was at the clinic in [place] getting a COVID 2nd injection, when she missed a step and fell down to the ground. Patient reports she fell on her left side on her left hip, then hit her head. Patient reports only pain complaint is to the left hip/buttock. Patient denies loc, n, v, vision changes, chest pain, shortness of breath, abd pain, pelvis pain. Trauma code was called due to on coumadin and fall. Patient alert and oriented. No airway difficulties. IV placed x1 at this time. No CXR due to no other pain complaints from fall other than left hip. Hi/pelvis xray ordered. library monitor placed. Patient exposed for exam. Rectal exam performed. Onset: Today Onset Date: 01/01/21 Onset Time: 14:10 Location: Reports: Head, Lower Extremity, Left Quality: Reports: Ache Severity: Moderate Improves with: Reports: Immobilization Worsens with: Reports: Movement Associated Symptoms: Reports: No Other Symptoms. Denies: Confusion, Chest Pain, Cough, cough w sputum, Diaphoresis, Fever/Chills, Headaches, Loss of Appetite, Malaise, Nausea/Vomiting, Rash, Seizure, Shortness of Breath, Syncope, Weakness Left Hip Pain Score (Numeric/FACES): 6 - Related Data Allergies Allergy/AdvReac Type Severity Reaction Status Date / Time erythromycin ethylsuccinate Allergy Rash Verified 01/01/21 14:25 [From [facility] Home Meds: Home Meds Cyanocobalamin (Vitamin B-12) [Vitamin B-12] 2,000 mcg PO DAILY 10/23/15 [History] Multivitamin [Multivitamins] 1 tab PO DAILY 10/23/15 [History] Furosemide [Lasix] 20 mg PO DAILY PRN 06/22/16 [History] Magnesium 500 mg PO DAILY 02/15/17 [History] Phytonadione [Vitamin K] 200 mcg PO DAILY 02/15/17 [History] Potassium Chloride [Klor-Con M20] 30 meq PO BID 02/15/17 [History] Losartan Potassium 12.5 mg PO DAILY 10/28/18 [History] Thiamine HCl [Vitamin B-1] 250 mg PO DAILY 07/20/19 [History] carvediloL [Carvedilol] 6.25 mg PO BID 07/20/19 [History] Warfarin [Coumadin] 2.5 mg PO DAILY 05/21/20 [History] Past Medical History HEENT History: Reports: Impaired Vision Other HEENT History: PATIENT WEARS GLASSSES Cardiovascular History: Reports: Afib, Automatic Implantable Cardioverter Defibrillators, Heart Valve Replacement, Pacemaker, Prior Cardiac Arrest Other Cardiovascular History: hypertension prior to gastric bypass; has since resolved Respiratory History: Reports: Asthma Other Respiratory History: sleep apnea prior to gastric bypass; has since resolved Gastrointestinal History: Reports: GERD, GI Bleed Other Gastrointestinal History: GIB in September 2015 - treated in [place] [employer] History: Reports: None Musculoskeletal History: Reports: Fracture, Osteoarthritis Other Musculoskeletal History: OA in knees; total knee replacements Psychiatric History: Reports: Depression Hematologic History: Reports: B12 Deficiency, Iron Deficiency Other Hematologic History: Iron infusion in October 2015; B12 supplements since gastric bypass - Infectious Disease History Infectious Disease History: Reports: None - Past Surgical History HEENT Surgical History: Reports: Tonsillectomy Cardiovascular Surgical History: Reports: AICD, Valve Replacement Other Cardiovascular Surgeries/Procedures: ARTIFICIAL VALVE Respiratory Surgical History: Reports: None GI Surgical History: Reports: Appendectomy, Bariatric Procedure, Cholecystectomy Other GI Surgeries/Procedures: gastric bypass surgery in 2008 Female Surgical History: Reports: Section, D&C, Tubal Ligation Musculoskeletal Surgical History: Reports: Knee Replacement Other Musculoskeletal Surgeries/Procedures:: bilateral total knee replacements in 2002 Social & Family History - Family History Family Medical History: No Pertinent Family History - Caffeine Use Caffeine Use: Reports: None Review of Systems - Review of Systems Review Of Systems: See Below Constitutional: Reports: No Symptoms Eyes: Reports: No Symptoms Ears: Reports: No Symptoms Nose: Reports: No Symptoms Mouth/Throat: Reports: No Symptoms Respiratory: Reports: No Symptoms. Denies: Shortness of Breath, Pleuritic Chest Pain, Cough Cardiovascular: Reports: No Symptoms. Denies: Chest Pain, Edema, Irregular Heart Rate, Lightheadedness, Palpitations, Syncope GI/Abdominal: Reports: No Symptoms. Denies: Abdominal Pain, Bloody Stool (denies), Diarrhea, Hematemesis, Nausea, Vomiting Genitourinary: Reports: No Symptoms Musculoskeletal: Reports: Joint Pain (left hip). Denies: Neck Pain, Shoulder Pain, Arm Pain, Back Pain, Hand Pain, Leg Pain, Foot Pain, Joint Swelling, Muscle Stiffness Skin: Reports: No Symptoms Neurological: Reports: No Symptoms. Denies: Confusion, Dizziness, Headache, Numbness, Seizure, Syncope, Tingling, Trouble Speaking, Difficulty Walking, Weakness, Change in Speech Psychiatric: Reports: No Symptoms. Denies: Confusion ED EXAM, GENERAL - Physical Exam Exam: See Below Exam Limited By: No Limitations General Appearance: Alert, WD/WN, No Apparent Distress Eye Exam: Bilateral Eye: EOMI, Normal Inspection, PERRL Ears: Normal External Exam, Normal Canal, Hearing Grossly Normal, Normal TMs Ear Exam: Bilateral Ear: Auricle Normal, Canal Normal, TM normal Nose: Normal Inspection, Normal Mucosa, No Blood Throat/Mouth: Normal Inspection, Normal Lips, Normal Teeth, Normal Gums, Normal Oropharynx, Normal Voice, No Airway Compromise Head: Atraumatic, Normocephalic. No: Facial Swelling, Facial Tenderness, Sinus Tenderness Neck: Normal Inspection, Supple, Non-Tender, Full Range of Motion Respiratory/Chest: No Respiratory Distress, Lungs Clear, Normal Breath Sounds, No Accessory Muscle Use, Chest Non-Tender Cardiovascular: Normal Peripheral Pulses, Regular Rate, Rhythm, No Edema, No Gallop, No JVD, No Murmur, No Rub Peripheral Pulses: 2+: Radial (L), Radial (R), Femoral (L), Femoral (R), Posterior Tibial (L), Posterior Tibial (R), Dorsalis Pedis (L), Dorsalis Pedis (R) GI/Abdominal: Normal Bowel Sounds, Soft, Non-Tender, No Organomegaly, No Distention, No Abnormal Bruit, No Mass, Pelvis Stable (Female) Exam: Deferred Rectal (Female) Exam: Heme + Stool, Hemorrhoids (external, not bleeding. ). No: Black Stool, Bloody Stool, Decreased Rectal Tone, Fecal Impaction Back Exam: Normal Inspection, Full Range of Motion. No: CVA Tenderness (L), CVA Tenderness (R), Decreased Range of Motion, Muscle Spasm, Paraspinal Tenderness, Vertebral Tenderness Extremities: Normal Range of Motion, No Pedal Edema, Normal Capillary Refill, Other (Pain, tenderness left posterior buttock, lateral thigh/hip. Full ROM intact. No shortening, no rotation. ) Neurological: Alert, Oriented, CN II-XII Intact, Normal Cognition, No Motor/Sensory Deficits Psychiatric: Normal Affect, Normal Mood Skin Exam: Warm, Dry, Intact, No Rash, Ecchymosis (Left medial thigh.) Lymphatic: No Adenopathy Course - Vital Signs Last Recorded V/S: Last Vital Signs Temp 99 F 01/01/21 20:15 Pulse 80 01/01/21 20:15 Resp 18 01/01/21 20:15 BP 98/47 L 01/01/21 20:15 Pulse Ox 98 01/01/21 20:15 - Orders/Labs/Meds Orders: Active Orders 24 hr Category Date Time Status Abdomen Pelvis w Cont [CT] Stat Exams 01/01/21 15:01 Taken Chest w Cont [CT] Stat Exams 01/01/21 15:01 Taken Head wo Cont [CT] Stat Exams 01/01/21 14:39 Taken Hip Min 2V or 3V w Pelvis Lt [CR] Stat Exams 01/01/21 14:39 Taken CULTURE URINE [RM] Stat Lab 01/01/21 17:05 Received TYPE AND SCREEN [BBK] Stat Lab 01/01/21 14:29 Results Medication Orders Acetaminophen (Tylenol) 650 mg PO Q4H PRN PRN Reason: Pain (Mild 1-3)/fever Carvedilol (Coreg) 6.25 mg PO BID [facility] Ceftriaxone Sodium (Rocephin) 1 gm IVPUSH Q24H [facility] Last Admin: 01/01/21 20:41 Dose: 1 gm Documented by: SAMY Cyanocobalamin (Vitamin B12) 2,000 mcg PO DAILY [facility] Docusate Sodium (Colace) 100 mg PO BID PRN PRN Reason: Constipation Furosemide (Lasix) 20 mg PO DAILY PRN PRN Reason: Edema Losartan Potassium (Cozaar) 12.5 mg PO DAILY [facility] Morphine Sulfate (Morphine) 2 mg IVPUSH Q2H PRN PRN Reason: Pain (severe 7-10) Magnesium 500 Mg # (Own Med#) 500 mg PO DAILY [facility] Phytonadione [ Vitamin K] 200 Mcg # Own Med# 200 mcg PO DAILY [facility] Potassium Chloride [ Klor-Con M20] 30 Meq #Own Med# 30 meq PO BID [facility] Thiamine Hcl [ Vitamin B-1] 250 Mg #Own Med# 250 mg PO DAILY [facility] Ondansetron HCl (Zofran) 4 mg IV Q6H PRN PRN Reason: Nausea/Vomiting Oxycodone/Acetaminophen (Percocet 325-5 Mg) 1 tab PO Q4H PRN PRN Reason: Pain (moderate 4-6) Last Admin: 01/01/21 20:42 Dose: 1 tab Documented by: SAMY Labs: Laboratory Tests 01/01/21 01/01/21 01/01/21 Range/Units 14:29 14:29 14:29 WBC 3.2 L (5.0-10.0) 10^3/uL RBC 3.78 L (4.00-5.50) 10^6/uL Hgb 7.8 L* (12.0-16.0) g/dL Hct 24.4 L (37.0-47.0) % MCV 64.6 L (82.0-94.0) fL MCH 20.6 L (27.0-32.0) pg MCHC 32.0 L (33.0-38.0) g/dL RDW Coeff of Mookie 22.0 H (11.0-15.0) % Plt Count 175 (150-400) 10^3/uL Add Manual Diff Yes Neutrophils % (Manual) 70 (35-85) % Band Neutrophils % [employer] Lymphocytes % (Manual) 14 L (21-55) % Monocytes % (Manual) 14 H (2-12) % Eosinophils % (Manual) 2 (0-5) % PT 38.1 H (9.7-12.3) SEC INR 3.82 H (0.92-1.18) Sodium 127 L (136-145) mEq/L Potassium 4.1 (3.5-5.0) mEq/L Chloride 91 L (98-106) mEq/L Carbon Dioxide 25 (21-32) mmol/L BUN 6 L D (7-18) mg/dL Creatinine 0.8 (0.6-1.0) mg/dL Est Cr Clr Drug Dosing 61.35 mL/min Estimated GFR (MDRD) > 60 (>=60) mL/min Glucose 97 (75-99) mg/dL Lactic Acid (0.4-2.0) mmol/L Calcium 8.9 (8.4-10.1) mg/dL Total Bilirubin 0.6 (0.0-1.0) mg/dL AST 36 (15-37) U/L ALT 25 (12-78) U/L Alkaline Phosphatase 92 (46-116) U/L Total Protein 6.9 (6.4-8.2) g/dL Albumin 3.1 L (3.4-5.0) g/dL Amylase 43 (25-115) U/L Urine Color (YELLOW) Urine Appearance (CLEAR) Urine pH (4.5-8.0) Ur Specific [place] (1.003-1.020) Urine Protein (NEGATIVE) mg/dL Urine Glucose (UA) (NEGATIVE) mg/dL Urine Ketones (NEGATIVE) mg/dL Urine Occult Blood (NEGATIVE) Urine Nitrite (NEGATIVE) Urine Bilirubin (NEGATIVE) Urine Urobilinogen (0.2-1.0) EU/dL Ur Leukocyte Esterase (NEGATIVE) Urine RBC (0-5) /HPF Urine WBC (0-5) /HPF Ur Squamous Epith Cells (NOT SEEN) /HPF Urine Bacteria (NOT SEEN) /HPF Urinalysis Comment Blood Type Gel Antibody Screen 01/01/21 01/01/21 01/01/21 Range/Units 14:29 14:29 17:05 WBC (5.0-10.0) 10^3/uL RBC (4.00-5.50) 10^6/uL Hgb (12.0-16.0) g/dL Hct (37.0-47.0) % MCV (82.0-94.0) fL MCH (27.0-32.0) pg MCHC (33.0-38.0) g/dL RDW Coeff of Mookie (11.0-15.0) % Plt Count (150-400) 10^3/uL Add Manual Diff Neutrophils % (Manual) (35-85) % Band Neutrophils % Lymphocytes % (Manual) (21-55) % Monocytes % (Manual) (2-12) % Eosinophils % (Manual) (0-5) % PT (9.7-12.3) SEC INR (0.92-1.18) Sodium (136-145) mEq/L Potassium (3.5-5.0) mEq/L Chloride (98-106) mEq/L Carbon Dioxide (21-32) mmol/L BUN (7-18) mg/dL Creatinine (0.6-1.0) mg/dL Est Cr Clr Drug Dosing mL/min Estimated GFR (MDRD) (>=60) mL/min Glucose (75-99) mg/dL Lactic Acid 3.3 H (0.4-2.0) mmol/L Calcium (8.4-10.1) mg/dL Total Bilirubin (0.0-1.0) mg/dL AST (15-37) U/L ALT (12-78) U/L Alkaline Phosphatase (46-116) U/L Total Protein (6.4-8.2) g/dL Albumin (3.4-5.0) g/dL Amylase (25-115) U/L Urine Color Yellow (YELLOW) Urine Appearance Cloudy (CLEAR) Urine pH 5.5 (4.5-8.0) Ur Specific [place] <= 1.005 (1.003-1.020) Urine Protein Negative (NEGATIVE) mg/dL Urine Glucose (UA) Negative (NEGATIVE) mg/dL Urine Ketones Negative (NEGATIVE) mg/dL Urine Occult Blood Small H (NEGATIVE) Urine Nitrite Negative (NEGATIVE) Urine Bilirubin Negative (NEGATIVE) Urine Urobilinogen 0.2 (0.2-1.0) EU/dL Ur Leukocyte Esterase Large H (NEGATIVE) Urine RBC 5-10 H (0-5) /HPF Urine WBC 40-50 H (0-5) /HPF Ur Squamous Epith Cells Occasional H (NOT SEEN) /HPF Urine Bacteria Moderate H (NOT SEEN) /HPF Urinalysis Comment Blood Type O POSITIVE Gel Antibody Screen Negative Meds: Medications Generic Name Dose Route Start Last Admin Trade Name Freq PRN Reason Stop Dose Admin Acetaminophen 650 mg 01/01/21 20:15 Tylenol PO Q4H PRN Pain (Mild 1-3)/fever Carvedilol 6.25 mg 01/02/21 08:00 Coreg PO BID [facility] Ceftriaxone Sodium 1 gm 01/01/21 20:15 01/01/21 20:41 Rocephin IVPUSH 1 gm Q24H [facility] Administration Cyanocobalamin 2,000 mcg 01/02/21 08:00 Vitamin B12 PO DAILY [facility] Docusate Sodium 100 mg 01/01/21 20:15 Colace PO BID PRN Constipation Furosemide 20 mg 01/01/21 20:15 Lasix PO DAILY PRN Edema Losartan Potassium 12.5 mg 01/02/21 08:00 Cozaar PO DAILY [facility] Morphine Sulfate 2 mg 01/01/21 20:15 Morphine IVPUSH Q2H PRN Pain (severe 7-10) Magnesium 500 Mg # 500 mg 01/02/21 08:00 Own Med# PO DAILY [facility] Phytonadione [ 200 mcg 01/02/21 08:00 Vitamin K] 200 Mcg # PO Own Med# DAILY [facility] Potassium Chloride [ 30 meq 01/02/21 08:00 Klor-Con M20] 30 Meq PO #Own Med# BID [facility] Thiamine Hcl [ 250 mg 01/02/21 08:00 Vitamin B-1] 250 Mg PO #Own Med# DAILY [facility] Ondansetron HCl 4 mg 01/01/21 20:15 Zofran IV Q6H PRN Nausea/Vomiting Oxycodone/Acetaminophen 1 tab 01/01/21 20:15 01/01/21 20:42 Percocet 325-5 Mg PO 1 tab Q4H PRN Administration Pain (moderate 4-6) Discontinued Medications Generic Name Dose Route Start Last Admin Trade Name Freq PRN Reason Stop Dose Admin Sodium Chloride 1,000 mls @ 1,000 mls/hr 01/01/21 15:02 01/01/21 15:38 Normal Saline IV 01/01/21 16:01 1,000 mls/hr .BOLUS ONE Administration Iopamidol 100 ml 01/01/21 15:34 01/01/21 15:35 Isovue-370 (76%) IVPUSH 01/01/21 15:35 100 ml ONETIME ONE Administration Morphine Sulfate 4 mg 01/01/21 15:48 01/01/21 15:54 Morphine IVPUSH 01/01/21 15:49 4 mg ONETIME ONE Administration Ondansetron HCl 4 mg 01/01/21 15:48 01/01/21 15:53 Zofran IVPUSH 01/01/21 15:49 4 mg NOW STA Administration - Radiology Interpretation Free Text/Narrative:: CT Head: No acute findings, no bleed CT Chest: No acute findings CT Abd/Pelvis: There is mild irregularity of the inferior pubic rami bilaterally and the right superior pubic ramus near the pubic bone, which are suspicious for nondisplaced fractures, but are incompletely evaluated due to osteopenia and technique of the ct. CT Results Date: 01/01/21 CT Results Time: 16:37 - Re-Assessments/Exams Free Text/Narrative Re-Assessment/Exam: 01/01/21 14:53 Patient hgb is 7.8. Patient reports that she does at times have low hgb levels and it is caused from bleeding in her bowels. She reports she takes coumadin and her INR is due to be drawn. This has been ordered. Patient vital signs are hemodynamically stable at this time. Patient has no pain or tenderness to head, chest, abd, pelvis, back. Will await remaining labs and continue to closely monitor this patient. 01/01/21 15:40 Patient vitals remain stable. Awaiting results. Fluids were given for ct contrast dye. 01/01/21 1630 Patient vitals remain stable, awaiting results. 01/01/21 1730 Patient reports Morphine did help, she was able to get up with a 2 person assist, but not ambulate. 01/01/21 18:00 I called and spoke to Dr. Bowles orthopedic at [facility]. He reports no surgical treatment for the pelvic fracture. He reports just pain managing. Weight bearing as tolerated, FU in 2 weeks with orthopedic locally if needed. I will admit the patient observation, control her pain to hopefully get her walking. Patient vital signs remain stable. Will redraw her labs in the morning to recheck her hgb. She does have history of alcohol dependence with GI bleeding in past. Patient reports that she has a chronic pelvis fracture, so the ct image could be old per patient. Departure - Departure Time of Disposition: 18:00 Disposition: Refer to Observation Condition: Fair Clinical Impression: Elevated INR, Encounter for Hemoccult screening Pelvis fracture Qualifiers: Encounter type: initial encounter Pelvic bone location: pubis Sublocation of pubis: other portion of pubis Fracture type: closed Laterality: left Qualified Code(s): S32.592A - Other specified fracture of left pubis, initial encounter for closed fracture Anemia Qualifiers: Anemia type: unspecified type Qualified Code(s): D64.9 - Anemia, unspecified GI (gastrointestinal bleed) Qualifiers: GI bleed type/associated pathology: unspecified gastrointestinal hemorrhage type Qualified Code(s): K92.2 - Gastrointestinal hemorrhage, unspecified UTI (urinary tract infection) Qualifiers: Urinary tract infection type: acute cystitis Hematuria presence: without hematuria Qualified Code(s): N30.00 - Acute cystitis without hematuria - Discharge Information *PRESCRIPTION DRUG MONITORING PROGRAM REVIEWED*: Not Applicable *COPY OF PRESCRIPTION DRUG MONITORING REPORT IN PATIENT VANESSA: Not Applicable Sepsis Event Note (ED) - Evaluation Sepsis Screening Result: No Definite Risk - Focused Exam Vital Signs: Vital Signs Temp Pulse Resp BP Pulse Ox 01/01/21 16:35 97.7 F 80 16 120/70 98 01/01/21 14:21 96.6 F L 77 16 114/84 97 - My Orders Last 24 Hours: My Active Orders 01/01/21 14:29 TYPE AND SCREEN [BBK] Stat 01/01/21 14:39 Head wo Cont [CT] Stat Hip Min 2V or 3V w Pelvis Lt [CR] Stat 01/01/21 15:01 Abdomen Pelvis w Cont [CT] Stat Chest w Cont [CT] Stat 01/01/21 17:05 CULTURE URINE [RM] Stat - Assessment/Plan Last 24 Hours: My Active Orders 01/01/21 14:29 TYPE AND SCREEN [BBK] Stat 01/01/21 14:39 Head wo Cont [CT] Stat Hip Min 2V or 3V w Pelvis Lt [CR] Stat 01/01/21 15:01 Abdomen Pelvis w Cont [CT] Stat Chest w Cont [CT] Stat 01/01/21 17:05 CULTURE URINE [RM] Stat Plan: PLEASE SEE RN NOTE FOR PFSH PLEASE USE ER H&P ADMIT H&P
[2021-01-01] MEDS ORDERED: Sodium Chloride 0.9% 1,000 ML IV ONE (15:02)
[2021-01-01] MEDS ORDERED: Iopamidol 755 Mg/ML 100 ML Bottle IVPUSH ONE (15:34)
[2021-01-01] MEDS ORDERED: Morphine 4 MG/ML VIAL IVPUSH ONE (15:48)
[2021-01-01] MEDS ORDERED: Ondansetron 4 MG/2 ML SDV IVPUSH STA (15:48)
[2021-01-01] MEDS ORDERED: Acetaminophen 325 MG Tab PO PRN (20:15)
[2021-01-01] MEDS ORDERED: Ondansetron 4 MG/2 ML SDV IV PRN (20:15)
[2021-01-01] MEDS ORDERED: Docusate Sodium 100 MG Cap PO PRN (20:15)
[2021-01-01] MEDS ORDERED: Morphine 2 MG/ML SYRINGE IVPUSH PRN (20:15)
[2021-01-01] MEDS ORDERED: cefTRIAXone 1 GM Vial IVPUSH SCH (20:15)
[2021-01-01] MEDS ORDERED: Furosemide 20 MG Tab #OWN MED# PO PRN (20:15)
[2021-01-01] MEDS: Acetaminophen/oxyCODONE 325-5 MG Tab PO PRN (20:42)
[2021-01-02] MEDS: Acetaminophen/oxyCODONE 325-5 MG Tab PO PRN ×3 (00:56→09:27)
[2021-01-02] MEDS ORDERED: Pantoprazole 40 MG Tab.CR PO SCH (07:00)
[2021-01-02] MEDS ORDERED: POTASSIUM CHLORIDE 20 MEQ PO SCH (08:00)
[2021-01-02] MEDS ORDERED: CARVEDILOL 6.25 MG PO SCH (08:00)
[2021-01-02] MEDS ORDERED: Cyanocobalamin (Vitamin B12) 1,000 MCG Tab PO SCH (08:00)
[2021-01-02] MEDS ORDERED: LOSARTAN 25 MG PO SCH (08:00)
[2021-01-02] MEDS ORDERED: Thiamine 100 MG Tab PO SCH (08:00)
[2021-01-02] MEDS ORDERED: PHYTONADIONE PO SCH (08:00)
--- NOTE | 2021-01-02 11:04 | PCM.PN ---
- General Info Date of Service: 01/02/21 Functional Status: Reports: Pain Controlled (improving), Tolerating Diet, Ambulating (to the bedside toilet and back to bed. ) - Review of Systems General: Reports: No Symptoms HEENT: Reports: No Symptoms Pulmonary: Reports: No Symptoms Cardiovascular: Reports: No Symptoms Gastrointestinal: Reports: Other (denies blood in stool). Denies: Abdominal Pain, Constipation, Diarrhea, Hematochezia, Nausea, Vomiting Genitourinary: Reports: No Symptoms Musculoskeletal: Reports: Other (left upper leg pain. left hip pain. ) Skin: Reports: No Symptoms Neurological: Reports: No Symptoms Psychiatric: Reports: No Symptoms - Patient Data Vitals - Most Recent: Last Vital Signs Temp 98 F 01/02/21 07:32 Pulse 81 01/02/21 07:34 Resp 18 01/02/21 07:32 BP 118/71 01/02/21 07:34 Pulse Ox 97 01/02/21 07:32 Weight - Most Recent: 185 lb 3.2 oz Lab Results Last 24 Hours: Laboratory Results - last 24 hr 01/01/21 01/01/21 01/01/21 Range/Units 14:29 14:29 14:29 WBC 3.2 L (5.0-10.0) 10^3/uL RBC 3.78 L (4.00-5.50) 10^6/uL Hgb 7.8 L* (12.0-16.0) g/dL Hct 24.4 L (37.0-47.0) % MCV 64.6 L (82.0-94.0) fL MCH 20.6 L (27.0-32.0) pg MCHC 32.0 L (33.0-38.0) g/dL RDW Coeff of Mookie 22.0 H (11.0-15.0) % Plt Count 175 (150-400) 10^3/uL Neut % (Auto) (35-85) % Lymph % (Auto) (10-55) % [place] % (Auto) (0-16) % Eos % (Auto) (0-5) % Baso % (Auto) (0-3) % Neut # (Auto) (1.80-7.00) 10^3/uL Lymph # (Auto) (1.00-4.80) 10^3/uL [place]ent # (Auto) (0.00-0.80) 10^3/uL Eos # (Auto) (0.00-0.45) 10^3/uL Baso # (Auto) 10^3/uL Add Manual Diff Yes Neutrophils % (Manual) 70 (35-85) % Band Neutrophils % [place] Lymphocytes % (Manual) 14 L (21-55) % Monocytes % (Manual) 14 H (2-12) % Eosinophils % (Manual) 2 (0-5) % PT 38.1 H (9.7-12.3) SEC INR 3.82 H (0.92-1.18) Sodium 127 L (136-145) mEq/L Potassium 4.1 (3.5-5.0) mEq/L Chloride 91 L (98-106) mEq/L Carbon Dioxide 25 (21-32) mmol/L BUN 6 L D (7-18) mg/dL Creatinine 0.8 (0.6-1.0) mg/dL Est Cr Clr Drug Dosing 61.35 mL/min Estimated GFR (MDRD) > 60 (>=60) mL/min Glucose 97 (75-99) mg/dL Lactic Acid (0.4-2.0) mmol/L Calcium 8.9 (8.4-10.1) mg/dL Total Bilirubin 0.6 (0.0-1.0) mg/dL AST 36 (15-37) U/L ALT 25 (12-78) U/L Alkaline Phosphatase 92 (46-116) U/L Total Protein 6.9 (6.4-8.2) g/dL Albumin 3.1 L (3.4-5.0) g/dL Amylase 43 (25-115) U/L Urine Color (YELLOW) Urine Appearance (CLEAR) Urine pH (4.5-8.0) Ur Specific [place] (1.003-1.020) Urine Protein (NEGATIVE) mg/dL Urine Glucose (UA) (NEGATIVE) mg/dL Urine Ketones (NEGATIVE) mg/dL Urine Occult Blood (NEGATIVE) Urine Nitrite (NEGATIVE) Urine Bilirubin (NEGATIVE) Urine Urobilinogen (0.2-1.0) EU/dL Ur Leukocyte Esterase (NEGATIVE) Urine RBC (0-5) /HPF Urine WBC (0-5) /HPF Ur Squamous Epith Cells (NOT SEEN) /HPF Urine Bacteria (NOT SEEN) /HPF Urinalysis Comment Blood Type Gel Antibody Screen 01/01/21 01/01/21 01/01/21 Range/Units 14:29 14:29 17:05 WBC (5.0-10.0) 10^3/uL RBC (4.00-5.50) 10^6/uL Hgb (12.0-16.0) g/dL Hct (37.0-47.0) % MCV (82.0-94.0) fL MCH (27.0-32.0) pg MCHC (33.0-38.0) g/dL RDW Coeff of Mookie (11.0-15.0) % Plt Count (150-400) 10^3/uL Neut % (Auto) (35-85) % Lymph % (Auto) (10-55) % [place] % (Auto) (0-16) % Eos % (Auto) (0-5) % Baso % (Auto) (0-3) % Neut # (Auto) (1.80-7.00) 10^3/uL Lymph # (Auto) (1.00-4.80) 10^3/uL [place] # (Auto) (0.00-0.80) 10^3/uL Eos # (Auto) (0.00-0.45) 10^3/uL Baso # (Auto) 10^3/uL Add Manual Diff Neutrophils % (Manual) (35-85) % Band Neutrophils % Lymphocytes % (Manual) (21-55) % Monocytes % (Manual) (2-12) % Eosinophils % (Manual) (0-5) % PT (9.7-12.3) SEC INR (0.92-1.18) Sodium (136-145) mEq/L Potassium (3.5-5.0) mEq/L Chloride (98-106) mEq/L Carbon Dioxide (21-32) mmol/L BUN (7-18) mg/dL Creatinine (0.6-1.0) mg/dL Est Cr Clr Drug Dosing mL/min Estimated GFR (MDRD) (>=60) mL/min Glucose (75-99) mg/dL Lactic Acid 3.3 H (0.4-2.0) mmol/L Calcium (8.4-10.1) mg/dL Total Bilirubin (0.0-1.0) mg/dL AST (15-37) U/L ALT (12-78) U/L Alkaline Phosphatase (46-116) U/L Total Protein (6.4-8.2) g/dL Albumin (3.4-5.0) g/dL Amylase (25-115) U/L Urine Color Yellow (YELLOW) Urine Appearance Cloudy (CLEAR) Urine pH 5.5 (4.5-8.0) Ur Specific [place] <= 1.005 (1.003-1.020) Urine Protein Negative (NEGATIVE) mg/dL Urine Glucose (UA) Negative (NEGATIVE) mg/dL Urine Ketones Negative (NEGATIVE) mg/dL Urine Occult Blood Small H (NEGATIVE) Urine Nitrite Negative (NEGATIVE) Urine Bilirubin Negative (NEGATIVE) Urine Urobilinogen 0.2 (0.2-1.0) EU/dL Ur Leukocyte Esterase Large H (NEGATIVE) Urine RBC 5-10 H (0-5) /HPF Urine WBC 40-50 H (0-5) /HPF Ur Squamous Epith Cells Occasional H (NOT SEEN) /HPF Urine Bacteria Moderate H (NOT SEEN) /HPF Urinalysis Comment Blood Type O POSITIVE Gel Antibody Screen Negative 01/02/21 01/02/21 01/02/21 Range/Units 05:00 05:00 05:00 WBC 4.5 L (5.0-10.0) 10^3/uL RBC 3.52 L (4.00-5.50) 10^6/uL Hgb 7.3 L* (12.0-16.0) g/dL Hct 23.8 L (37.0-47.0) % MCV 67.6 L (82.0-94.0) fL MCH 20.7 L (27.0-32.0) pg MCHC 30.7 L (33.0-38.0) g/dL RDW Coeff of Mookie 22.4 H (11.0-15.0) % Plt Count 146 L (150-400) 10^3/uL Neut % (Auto) 72.9 (35-85) % Lymph % (Auto) 10.3 (10-55) % [place] % (Auto) 12.5 (0-16) % Eos % (Auto) 3.6 (0-5) % Baso % (Auto) 0.7 (0-3) % Neut # (Auto) 3.27 (1.80-7.00) 10^3/uL Lymph # (Auto) 0.46 L (1.00-4.80) 10^3/uL [place]ent # (Auto) 0.56 (0.00-0.80) 10^3/uL Eos # (Auto) 0.16 (0.00-0.45) 10^3/uL Baso # (Auto) 0.03 10^3/uL Add Manual Diff Neutrophils % (Manual) (35-85) % Band Neutrophils % Lymphocytes % (Manual) (21-55) % Monocytes % (Manual) (2-12) % Eosinophils % (Manual) (0-5) % PT 34.6 H (9.7-12.3) SEC INR 3.47 H (0.92-1.18) Sodium 131 L (136-145) mEq/L Potassium 4.5 (3.5-5.0) mEq/L Chloride 96 L (98-106) mEq/L Carbon Dioxide 29 (21-32) mmol/L BUN 8 (7-18) mg/dL Creatinine 1.0 (0.6-1.0) mg/dL Est Cr Clr Drug Dosing 49.08 mL/min Estimated GFR (MDRD) 56 L (>=60) mL/min Glucose 115 H (75-99) mg/dL Lactic Acid (0.4-2.0) mmol/L Calcium 8.8 (8.4-10.1) mg/dL Total Bilirubin (0.0-1.0) mg/dL AST (15-37) U/L ALT (12-78) U/L Alkaline Phosphatase (46-116) U/L Total Protein (6.4-8.2) g/dL Albumin (3.4-5.0) g/dL Amylase (25-115) U/L Urine Color (YELLOW) Urine Appearance (CLEAR) Urine pH (4.5-8.0) Ur Specific [place] (1.003-1.020) Urine Protein (NEGATIVE) mg/dL Urine Glucose (UA) (NEGATIVE) mg/dL Urine Ketones (NEGATIVE) mg/dL Urine Occult Blood (NEGATIVE) Urine Nitrite (NEGATIVE) Urine Bilirubin (NEGATIVE) Urine Urobilinogen (0.2-1.0) EU/dL Ur Leukocyte Esterase (NEGATIVE) Urine RBC (0-5) /HPF Urine WBC (0-5) /HPF Ur Squamous Epith Cells (NOT SEEN) /HPF Urine Bacteria (NOT SEEN) /HPF Urinalysis Comment Blood Type Gel Antibody Screen Raimundo Results Last 24 Hours: Microbiology 01/01/21 17:05 Urine Culture - Preliminary Urine, Voided Gram Negative Rods Med Orders - Current: Current Medications Acetaminophen (Tylenol) 650 mg PO Q4H PRN PRN Reason: Pain (Mild 1-3)/fever Carvedilol (Coreg) 6.25 mg PO BID [facility] Last Admin: 01/02/21 07:34 Dose: 6.25 mg Documented by: Ceftriaxone Sodium (Rocephin) 1 gm IVPUSH Q24H [facility] Last Admin: 01/01/21 20:41 Dose: 1 gm Documented by: Cyanocobalamin (Vitamin B12) 2,000 mcg PO DAILY [facility] Last Admin: 01/02/21 07:41 Dose: Not Given Documented by: Docusate Sodium (Colace) 100 mg PO BID PRN PRN Reason: Constipation Furosemide (Lasix) 20 mg PO DAILY PRN PRN Reason: Edema Losartan Potassium (Cozaar) 12.5 mg PO DAILY [facility] Last Admin: 01/02/21 07:34 Dose: 12.5 mg Documented by: Magnesium Oxide (Magnesium Oxide) 500 mg PO DAILY [facility] Last Admin: 01/02/21 07:40 Dose: Not Given Documented by: Morphine Sulfate (Morphine) 2 mg IVPUSH Q2H PRN PRN Reason: Pain (severe 7-10) Phytonadione [ Vitamin K] 200 Mcg # Own Med# 200 mcg PO DAILY [facility] Potassium Chloride (20 Meq #Own Med#) 30 meq PO BID [facility] Last Admin: 01/02/21 07:33 Dose: 30 meq Documented by: Ondansetron HCl (Zofran) 4 mg IV Q6H PRN PRN Reason: Nausea/Vomiting Oxycodone/Acetaminophen (Percocet 325-5 Mg) 1 tab PO Q4H PRN PRN Reason: Pain (moderate 4-6) Last Admin: 01/02/21 09:27 Dose: 1 tab Documented by: Pantoprazole Sodium (Protonix) 40 mg PO DAILY@0700 [facility] Last Admin: 01/02/21 06:15 Dose: 40 mg Documented by: Thiamine HCl (Vitamin B-1) 250 mg PO DAILY [facility] Last Admin: 01/02/21 07:40 Dose: Not Given Documented by: Discontinued Medications Sodium Chloride (Normal Saline) 1,000 mls @ 1,000 mls/hr IV .BOLUS ONE Stop: 01/01/21 16:01 Last Admin: 01/01/21 15:38 Dose: 1,000 mls/hr Documented by: Iopamidol (Isovue-370 (76%)) 100 ml IVPUSH ONETIME ONE Stop: 01/01/21 15:35 Last Admin: 01/01/21 15:35 Dose: 100 ml Documented by: Morphine Sulfate (Morphine) 4 mg IVPUSH ONETIME ONE Stop: 01/01/21 15:49 Last Admin: 01/01/21 15:54 Dose: 4 mg Documented by: Ondansetron HCl (Zofran) 4 mg IVPUSH NOW STA Stop: 01/01/21 15:49 Last Admin: 01/01/21 15:53 Dose: 4 mg Documented by: - Exam General: Alert, Oriented, Cooperative, No Acute Distress Neck: Supple, Trachea Midline Lungs: Clear to Auscultation, Normal Respiratory Effort Cardiovascular: Regular Rate, Regular Rhythm GI/Abdominal Exam: Normal Bowel Sounds, Soft, Non-Tender, No Organomegaly, No Distention, No Abnormal Bruit, No Mass, Pelvis Stable. No: Distended, Guarding, Rigid, Rebound, Tender, Abnormal Bowel Sounds (Female) Exam: Deferred Back Exam: Normal Inspection, Full Range of Motion. No: CVA Tenderness (L), CVA Tenderness (R), Decreased Range of Motion, Muscle Spasm, Paraspinal Tenderness, Vertebral Tenderness Extremities: Normal Inspection, Normal Range of Motion, No Pedal Edema, Normal Capillary Refill, Other (mild tenderness left hip anterior/posterior. Mild. ROM intact. No shortening or inversion or eversion of the exctremity.) Peripheral Pulses: 2+: Radial (L), Radial (R), Femoral (L), Femoral (R), Posterior Tibial (L), Posterior Tibial (R), Dorsalis Pedis (L), Dorsalis Pedis (R) Skin: Warm, Dry, Intact, Ecchymosis (left medial distal thigh small. ) Neurological: No New Focal Deficit Psy/Mental Status: Alert, Normal Affect, Normal Mood - Patient Data Lab Results Last 24 hrs: Laboratory Results - last 24 hr 01/01/21 01/01/21 01/01/21 Range/Units 14:29 14:29 14:29 WBC 3.2 L (5.0-10.0) 10^3/uL RBC 3.78 L (4.00-5.50) 10^6/uL Hgb 7.8 L* (12.0-16.0) g/dL Hct 24.4 L (37.0-47.0) % MCV 64.6 L (82.0-94.0) fL MCH 20.6 L (27.0-32.0) pg MCHC 32.0 L (33.0-38.0) g/dL RDW Coeff of Mookie 22.0 H (11.0-15.0) % Plt Count 175 (150-400) 10^3/uL Neut % (Auto) (35-85) % Lymph % (Auto) (10-55) % [place] % (Auto) (0-16) % Eos % (Auto) (0-5) % Baso % (Auto) (0-3) % Neut # (Auto) (1.80-7.00) 10^3/uL Lymph # (Auto) (1.00-4.80) 10^3/uL [place] # (Auto) (0.00-0.80) 10^3/uL Eos # (Auto) (0.00-0.45) 10^3/uL Baso # (Auto) 10^3/uL Add Manual Diff Yes Neutrophils % (Manual) 70 (35-85) % Band Neutrophils % [place] Lymphocytes % (Manual) 14 L (21-55) % Monocytes % (Manual) 14 H (2-12) % Eosinophils % (Manual) 2 (0-5) % PT 38.1 H (9.7-12.3) SEC INR 3.82 H (0.92-1.18) Sodium 127 L (136-145) mEq/L Potassium 4.1 (3.5-5.0) mEq/L Chloride 91 L (98-106) mEq/L Carbon Dioxide 25 (21-32) mmol/L BUN 6 L D (7-18) mg/dL Creatinine 0.8 (0.6-1.0) mg/dL Est Cr Clr Drug Dosing 61.35 mL/min Estimated GFR (MDRD) > 60 (>=60) mL/min Glucose 97 (75-99) mg/dL Lactic Acid (0.4-2.0) mmol/L Calcium 8.9 (8.4-10.1) mg/dL Total Bilirubin 0.6 (0.0-1.0) mg/dL AST 36 (15-37) U/L ALT 25 (12-78) U/L Alkaline Phosphatase 92 (46-116) U/L Total Protein 6.9 (6.4-8.2) g/dL Albumin 3.1 L (3.4-5.0) g/dL Amylase 43 (25-115) U/L Urine Color (YELLOW) Urine Appearance (CLEAR) Urine pH (4.5-8.0) Ur Specific [place] (1.003-1.020) Urine Protein (NEGATIVE) mg/dL Urine Glucose (UA) (NEGATIVE) mg/dL Urine Ketones (NEGATIVE) mg/dL Urine Occult Blood (NEGATIVE) Urine Nitrite (NEGATIVE) Urine Bilirubin (NEGATIVE) Urine Urobilinogen (0.2-1.0) EU/dL Ur Leukocyte Esterase (NEGATIVE) Urine RBC (0-5) /HPF Urine WBC (0-5) /HPF Ur Squamous Epith Cells (NOT SEEN) /HPF Urine Bacteria (NOT SEEN) /HPF Urinalysis Comment Blood Type Gel Antibody Screen 01/01/21 01/01/21 01/01/21 Range/Units 14:29 14:29 17:05 WBC (5.0-10.0) 10^3/uL RBC (4.00-5.50) 10^6/uL Hgb (12.0-16.0) g/dL Hct (37.0-47.0) % MCV (82.0-94.0) fL MCH (27.0-32.0) pg MCHC (33.0-38.0) g/dL RDW Coeff of Mookie (11.0-15.0) % Plt Count (150-400) 10^3/uL Neut % (Auto) (35-85) % Lymph % (Auto) (10-55) % [place] % (Auto) (0-16) % Eos % (Auto) (0-5) % Baso % (Auto) (0-3) % Neut # (Auto) (1.80-7.00) 10^3/uL Lymph # (Auto) (1.00-4.80) 10^3/uL [place] # (Auto) (0.00-0.80) 10^3/uL Eos # (Auto) (0.00-0.45) 10^3/uL Baso # (Auto) 10^3/uL Add Manual Diff Neutrophils % (Manual) (35-85) % Band Neutrophils % Lymphocytes % (Manual) (21-55) % Monocytes % (Manual) (2-12) % Eosinophils % (Manual) (0-5) % PT (9.7-12.3) SEC INR (0.92-1.18) Sodium (136-145) mEq/L Potassium (3.5-5.0) mEq/L Chloride (98-106) mEq/L Carbon Dioxide (21-32) mmol/L BUN (7-18) mg/dL Creatinine (0.6-1.0) mg/dL Est Cr Clr Drug Dosing mL/min Estimated GFR (MDRD) (>=60) mL/min Glucose (75-99) mg/dL Lactic Acid 3.3 H (0.4-2.0) mmol/L Calcium (8.4-10.1) mg/dL Total Bilirubin (0.0-1.0) mg/dL AST (15-37) U/L ALT (12-78) U/L Alkaline Phosphatase (46-116) U/L Total Protein (6.4-8.2) g/dL Albumin (3.4-5.0) g/dL Amylase (25-115) U/L Urine Color Yellow (YELLOW) Urine Appearance Cloudy (CLEAR) Urine pH 5.5 (4.5-8.0) Ur Specific [place] <= 1.005 (1.003-1.020) Urine Protein Negative (NEGATIVE) mg/dL Urine Glucose (UA) Negative (NEGATIVE) mg/dL Urine Ketones Negative (NEGATIVE) mg/dL Urine Occult Blood Small H (NEGATIVE) Urine Nitrite Negative (NEGATIVE) Urine Bilirubin Negative (NEGATIVE) Urine Urobilinogen 0.2 (0.2-1.0) EU/dL Ur Leukocyte Esterase Large H (NEGATIVE) Urine RBC 5-10 H (0-5) /HPF Urine WBC 40-50 H (0-5) /HPF Ur Squamous Epith Cells Occasional H (NOT SEEN) /HPF Urine Bacteria Moderate H (NOT SEEN) /HPF Urinalysis Comment Blood Type O POSITIVE Gel Antibody Screen Negative 01/02/21 01/02/21 01/02/21 Range/Units 05:00 05:00 05:00 WBC 4.5 L (5.0-10.0) 10^3/uL RBC 3.52 L (4.00-5.50) 10^6/uL Hgb 7.3 L* (12.0-16.0) g/dL Hct 23.8 L (37.0-47.0) % MCV 67.6 L (82.0-94.0) fL MCH 20.7 L (27.0-32.0) pg MCHC 30.7 L (33.0-38.0) g/dL RDW Coeff of Mookie 22.4 H (11.0-15.0) % Plt Count 146 L (150-400) 10^3/uL Neut % (Auto) 72.9 (35-85) % Lymph % (Auto) 10.3 (10-55) % [place] % (Auto) 12.5 (0-16) % Eos % (Auto) 3.6 (0-5) % Baso % (Auto) 0.7 (0-3) % Neut # (Auto) 3.27 (1.80-7.00) 10^3/uL Lymph # (Auto) 0.46 L (1.00-4.80) 10^3/uL [place] # (Auto) 0.56 (0.00-0.80) 10^3/uL Eos # (Auto) 0.16 (0.00-0.45) 10^3/uL Baso # (Auto) 0.03 10^3/uL Add Manual Diff Neutrophils % (Manual) (35-85) % Band Neutrophils % Lymphocytes % (Manual) (21-55) % Monocytes % (Manual) (2-12) % Eosinophils % (Manual) (0-5) % PT 34.6 H (9.7-12.3) SEC INR 3.47 H (0.92-1.18) Sodium 131 L (136-145) mEq/L Potassium 4.5 (3.5-5.0) mEq/L Chloride 96 L (98-106) mEq/L Carbon Dioxide 29 (21-32) mmol/L BUN 8 (7-18) mg/dL Creatinine 1.0 (0.6-1.0) mg/dL Est Cr Clr Drug Dosing 49.08 mL/min Estimated GFR (MDRD) 56 L (>=60) mL/min Glucose 115 H (75-99) mg/dL Lactic Acid (0.4-2.0) mmol/L Calcium 8.8 (8.4-10.1) mg/dL Total Bilirubin (0.0-1.0) mg/dL AST (15-37) U/L ALT (12-78) U/L Alkaline Phosphatase (46-116) U/L Total Protein (6.4-8.2) g/dL Albumin (3.4-5.0) g/dL Amylase (25-115) U/L Urine Color (YELLOW) Urine Appearance (CLEAR) Urine pH (4.5-8.0) Ur Specific [place] (1.003-1.020) Urine Protein (NEGATIVE) mg/dL Urine Glucose (UA) (NEGATIVE) mg/dL Urine Ketones (NEGATIVE) mg/dL Urine Occult Blood (NEGATIVE) Urine Nitrite (NEGATIVE) Urine Bilirubin (NEGATIVE) Urine Urobilinogen (0.2-1.0) EU/dL Ur Leukocyte Esterase (NEGATIVE) Urine RBC (0-5) /HPF Urine WBC (0-5) /HPF Ur Squamous Epith Cells (NOT SEEN) /HPF Urine Bacteria (NOT SEEN) /HPF Urinalysis Comment Blood Type Gel Antibody Screen Result Diagrams: 01/02/21 05:00 01/02/21 05:00 Raimundo Results Last 24 hrs: Microbiology 01/01/21 17:05 Urine Culture - Preliminary Urine, Voided Gram Negative Rods Sepsis Event Note - Evaluation Sepsis Screening Result: No Definite Risk - Focused Exam Vital Signs: Vital Signs Temp Pulse Pulse Resp BP BP Pulse Ox 01/02/21 07:34 81 118/71 01/02/21 07:32 98 F 82 18 118/71 97 01/02/21 04:00 97.9 F 80 18 108/64 96 01/02/21 00:00 98.0 F 75 18 104/62 94 L - Problem List Review Problem List Initiated/Reviewed/Updated: Yes - My Orders Last 24 Hours: My Active Orders 01/01/21 14:39 Head wo Cont [CT] Stat Hip Min 2V or 3V w Pelvis Lt [CR] Stat 01/01/21 15:01 Abdomen Pelvis w Cont [CT] Stat Chest w Cont [CT] Stat 01/01/21 17:05 CULTURE URINE [RM] Stat 01/01/21 19:57 Resuscitation Status Routine 01/01/21 20:15 Acetaminophen [TylenoL] 650 mg PO Q4H PRN Acetaminophen/oxyCODONE [Percocet 325-5 MG] 1 tab PO Q4H PRN Docusate Sodium [Colace] 100 mg PO BID PRN Furosemide [Lasix] 20 mg PO DAILY PRN Morphine 2 mg IVPUSH Q2H PRN Ondansetron [Zofran] 4 mg IV Q6H PRN cefTRIAXone [Rocephin] 1 gm IVPUSH Q24H 01/01/21 20:15 Patient Status [ADT] Routine Ambulate [RC] .PRN Antiembolic Devices [RC] 1000,2200 Cardiac Monitoring [RC] 0800,2000 Notify Provider Vital Signs [RC] .PRN Oxygen Therapy [RC] .PRN Up With Assistance [RC] .PRN Up to Chair [RC] .PRN Vital Signs [RC] 0000,0400,0800,1200,1600,2000 Antiembolic Hose [OM.PC] Per Unit Routine 01/02/21 07:00 Pantoprazole [ProTONIX] 40 mg PO DAILY@0700 01/02/21 08:00 Cyanocobalamin (Vitamin B12) [Vitamin B12] 2,000 mcg PO DAILY Losartan [Cozaar] 12.5 mg PO DAILY Magnesium Oxide 500 mg PO DAILY Phytonadione [Vitamin K] 200 mcg PO DAILY Potassium Chloride [Klor-Con M20] 30 meq PO BID Thiamine [Vitamin B-1] 250 mg PO DAILY carvediloL [Coreg] 6.25 mg PO BID 01/03/21 05:00 BASIC METABOLIC PANEL,BMP [CHEM] DAILY CBC WITH AUTO DIFF [HEME] DAILY INR,PT,PROTHROMBIN TIME [COAG] DAILY - Plan Plan:: 01/02/21 1045am This patient was admitted last night with a mechanical fall with left hip pelvis pain. Patient reports that her pain has improved with pain medication. She reports as long as she times it right she is able to get up to the bedside toilet. Today, will remove her bedside toilet from her room and ask nurse to ambulate her further distances with a walker. Patient has also bacteria in her urine, have treated for UTI, this was sent for urine culture as well. Patient denies any urinary symptoms. The patient has a chronic history of GI bleeding. She reports having a specialist at [facility]. She reports that she does not want to go to [place]. She reports she is fine. She reports that she is not having any blood in her bowls or vomiting blood. Patient reports that she would like t o stay until tomorrow to give more time to ambulate more. Yesterday her hgb 7.8, INR 3.82, Na 127, CH 91. Today labs are hgb 7.3, INR 3.47, NA 131, CH 96. Patient coumadin was held today. Vital signs are stable. Will continue admit, help patient ambulate more today. Will redraw labs in the morning to recheck hgb and INR.
[2021-01-02] MEDS ORDERED: Pantoprazole 40 MG in Sodium Chloride 0.9% 100 ML IV SCH (13:45)
--- NOTE | 2021-01-02 14:10 | PCM.SN.2 ---
- Free Text/Narrative Note: 01/02/21 1400 RN reported to me that patient BP is 90/47. Patient denies headache, dizziness, nausea, vomiting, diarrhea, abd pain, passing out, shortness of breath, chest pain. Hgb is rechecked, it is now 7.0. Protonix bolus/gtt ordered. Type and screen was previously ordered. I went and spoke to the patient again about possible transfer.
[2021-01-02] MEDS ORDERED: Phytonadione 5 MG in Sodium Chloride 0.9% 50 ML IV ONE (14:16)
--- NOTE | 2021-01-02 14:49 | PCM.DCSUM1 ---
Discharge Summary - Hospital Course HPI Initial Comments: 01/02/21 1400 RN reported to me that patient BP is 90/47. Patient denies headache, dizziness, nausea, vomiting, diarrhea, abd pain, passing out, shortness of breath, chest pain. Hgb is rechecked, it is now 7.0. Protonix bolus/gtt ordered. Type and screen was previously ordered. I went and spoke to the patient again about possible transfer. She has agreed to be transferred now. Will transfuse 1 unit of PRBCs due to patient hgb drop to 7.0, +hemocult, hypotension, active bleed, and 2 hour transfer time. I then called and spoke to Dr. Marlow hospitalist at [facility] who has accepted the patient. Requested Vitamin K to be given. I will transfer the patient via ground ALS ambulance. Risk vs benefits explained to the patient about transfer. She has agreed to transfer now. Risk of transfer are mvc, continued bleeding, cardia arrest, , hypotension. Risk of staying in [place] are continued drop hgb, , no GI specialist, no scope capability until later this week. The benefits of transfer are higher level of care, GI specialist, loss mitigation specialist. The benefits of staying in [place] are close to home. - Discharge Data Discharge Date: 01/02/21 Discharge Disposition: DC/Tfer to Acute Hospital 02 Condition: Fair - Referral to Home Health Primary Care Physician: Eduardo Hendricks MD - Discharge Plan *PRESCRIPTION DRUG MONITORING PROGRAM REVIEWED*: Not Applicable *COPY OF PRESCRIPTION DRUG MONITORING REPORT IN PATIENT VANESAS: Not Applicable Home Medications: Home Meds Cyanocobalamin (Vitamin B-12) [Vitamin B-12] 2,000 mcg PO DAILY 10/23/15 [History] Multivitamin [Multivitamins] 1 tab PO DAILY 10/23/15 [History] Furosemide [Lasix] 20 mg PO DAILY PRN 06/22/16 [History] Magnesium 500 mg PO DAILY 02/15/17 [History] Phytonadione [Vitamin K] 200 mcg PO DAILY 02/15/17 [History] Potassium Chloride [Klor-Con M20] 30 meq PO BID 02/15/17 [History] Losartan Potassium 12.5 mg PO DAILY 10/28/18 [History] Thiamine HCl [Vitamin B-1] 250 mg PO DAILY 07/20/19 [History] carvediloL [Carvedilol] 6.25 mg PO BID 07/20/19 [History] Warfarin [Coumadin] 2.5 mg PO DAILY 05/21/20 [History] Omeprazole Magnesium [Prilosec Otc] 20 mg PO DAILY 01/02/21 [History] Forms: ED Department Discharge Referrals: Eduardo Hendricks MD [Primary Care Provider] - - Discharge Summary/Plan Comment DC Time >30 min.: No - General Info Functional Status: Reports: Pain Controlled (left hip pain, better with pain medications per patient.) - Review of Systems General: Reports: No Symptoms. Denies: Weakness HEENT: Reports: No Symptoms Pulmonary: Reports: No Symptoms. Denies: Shortness of Breath Cardiovascular: Reports: No Symptoms Gastrointestinal: Reports: Other (Denies bloody stools. Reports no BM since being here. Reports took Peptobismul yesterday). Denies: Abdominal Pain, Diarrhea, Nausea, Vomiting Genitourinary: Reports: No Symptoms Musculoskeletal: Reports: Other (left hip pain) Skin: Reports: No Symptoms Neurological: Reports: No Symptoms Psychiatric: Reports: No Symptoms - Patient Data Vitals - Most Recent: Last Vital Signs Temp 97.8 F 01/02/21 12:00 Pulse 80 01/02/21 12:00 Resp 18 01/02/21 12:00 BP 90/47 L 01/02/21 12:00 Pulse Ox 96 01/02/21 12:00 Weight - Most Recent: 185 lb 3.2 oz Lab Results - Last 24 hrs: Laboratory Results - last 24 hr 01/01/21 01/01/21 01/01/21 Range/Units 14:29 14:29 14:29 WBC 3.2 L (5.0-10.0) 10^3/uL RBC 3.78 L (4.00-5.50) 10^6/uL Hgb 7.8 L* (12.0-16.0) g/dL Hct 24.4 L (37.0-47.0) % MCV 64.6 L (82.0-94.0) fL MCH 20.6 L (27.0-32.0) pg MCHC 32.0 L (33.0-38.0) g/dL RDW Coeff of Mookie 22.0 H (11.0-15.0) % Plt Count 175 (150-400) 10^3/uL Neut % (Auto) (35-85) % Lymph % (Auto) (10-55) % [place] % (Auto) (0-16) % Eos % (Auto) (0-5) % Baso % (Auto) (0-3) % Neut # (Auto) (1.80-7.00) 10^3/uL Lymph # (Auto) (1.00-4.80) 10^3/uL [place] # (Auto) (0.00-0.80) 10^3/uL Eos # (Auto) (0.00-0.45) 10^3/uL Baso # (Auto) 10^3/uL Add Manual Diff Yes Neutrophils % (Manual) 70 (35-85) % Band Neutrophils % [employer] Lymphocytes % (Manual) 14 L (21-55) % Monocytes % (Manual) 14 H (2-12) % Eosinophils % (Manual) 2 (0-5) % PT 38.1 H (9.7-12.3) SEC INR 3.82 H (0.92-1.18) Sodium 127 L (136-145) mEq/L Potassium 4.1 (3.5-5.0) mEq/L Chloride 91 L (98-106) mEq/L Carbon Dioxide 25 (21-32) mmol/L BUN 6 L D (7-18) mg/dL Creatinine 0.8 (0.6-1.0) mg/dL Est Cr Clr Drug Dosing 61.35 mL/min Estimated GFR (MDRD) > 60 (>=60) mL/min Glucose 97 (75-99) mg/dL Lactic Acid (0.4-2.0) mmol/L Calcium 8.9 (8.4-10.1) mg/dL Total Bilirubin 0.6 (0.0-1.0) mg/dL AST 36 (15-37) U/L ALT 25 (12-78) U/L Alkaline Phosphatase 92 (46-116) U/L Total Protein 6.9 (6.4-8.2) g/dL Albumin 3.1 L (3.4-5.0) g/dL Amylase 43 (25-115) U/L Urine Color (YELLOW) Urine Appearance (CLEAR) Urine pH (4.5-8.0) Ur Specific [place] (1.003-1.020) Urine Protein (NEGATIVE) mg/dL Urine Glucose (UA) (NEGATIVE) mg/dL Urine Ketones (NEGATIVE) mg/dL Urine Occult Blood (NEGATIVE) Urine Nitrite (NEGATIVE) Urine Bilirubin (NEGATIVE) Urine Urobilinogen (0.2-1.0) EU/dL Ur Leukocyte Esterase (NEGATIVE) Urine RBC (0-5) /HPF Urine WBC (0-5) /HPF Ur Squamous Epith Cells (NOT SEEN) /HPF Urine Bacteria (NOT SEEN) /HPF Urinalysis Comment Blood Type Gel Antibody Screen Crossmatch 01/01/21 01/01/21 01/01/21 Range/Units 14:29 14:29 17:05 WBC (5.0-10.0) 10^3/uL RBC (4.00-5.50) 10^6/uL Hgb (12.0-16.0) g/dL Hct (37.0-47.0) % MCV (82.0-94.0) fL MCH (27.0-32.0) pg MCHC (33.0-38.0) g/dL RDW Coeff of Mookie (11.0-15.0) % Plt Count (150-400) 10^3/uL Neut % (Auto) (35-85) % Lymph % (Auto) (10-55) % [place] % (Auto) (0-16) % Eos % (Auto) (0-5) % Baso % (Auto) (0-3) % Neut # (Auto) (1.80-7.00) 10^3/uL Lymph # (Auto) (1.00-4.80) 10^3/uL [place] # (Auto) (0.00-0.80) 10^3/uL Eos # (Auto) (0.00-0.45) 10^3/uL Baso # (Auto) 10^3/uL Add Manual Diff Neutrophils % (Manual) (35-85) % Band Neutrophils % Lymphocytes % (Manual) (21-55) % Monocytes % (Manual) (2-12) % Eosinophils % (Manual) (0-5) % PT (9.7-12.3) SEC INR (0.92-1.18) Sodium (136-145) mEq/L Potassium (3.5-5.0) mEq/L Chloride (98-106) mEq/L Carbon Dioxide (21-32) mmol/L BUN (7-18) mg/dL Creatinine (0.6-1.0) mg/dL Est Cr Clr Drug Dosing mL/min Estimated GFR (MDRD) (>=60) mL/min Glucose (75-99) mg/dL Lactic Acid 3.3 H (0.4-2.0) mmol/L Calcium (8.4-10.1) mg/dL Total Bilirubin (0.0-1.0) mg/dL AST (15-37) U/L ALT (12-78) U/L Alkaline Phosphatase (46-116) U/L Total Protein (6.4-8.2) g/dL Albumin (3.4-5.0) g/dL Amylase (25-115) U/L Urine Color Yellow (YELLOW) Urine Appearance Cloudy (CLEAR) Urine pH 5.5 (4.5-8.0) Ur Specific [place] <= 1.005 (1.003-1.020) Urine Protein Negative (NEGATIVE) mg/dL Urine Glucose (UA) Negative (NEGATIVE) mg/dL Urine Ketones Negative (NEGATIVE) mg/dL Urine Occult Blood Small H (NEGATIVE) Urine Nitrite Negative (NEGATIVE) Urine Bilirubin Negative (NEGATIVE) Urine Urobilinogen 0.2 (0.2-1.0) EU/dL Ur Leukocyte Esterase Large H (NEGATIVE) Urine RBC 5-10 H (0-5) /HPF Urine WBC 40-50 H (0-5) /HPF Ur Squamous Epith Cells Occasional H (NOT SEEN) /HPF Urine Bacteria Moderate H (NOT SEEN) /HPF Urinalysis Comment Blood Type O POSITIVE Gel Antibody Screen Negative Crossmatch See Detail 01/02/21 01/02/21 01/02/21 Range/Units 05:00 05:00 05:00 WBC 4.5 L (5.0-10.0) 10^3/uL RBC 3.52 L (4.00-5.50) 10^6/uL Hgb 7.3 L* (12.0-16.0) g/dL Hct 23.8 L (37.0-47.0) % MCV 67.6 L (82.0-94.0) fL MCH 20.7 L (27.0-32.0) pg MCHC 30.7 L (33.0-38.0) g/dL RDW Coeff of Mookie 22.4 H (11.0-15.0) % Plt Count 146 L (150-400) 10^3/uL Neut % (Auto) 72.9 (35-85) % Lymph % (Auto) 10.3 (10-55) % [place] % (Auto) 12.5 (0-16) % Eos % (Auto) 3.6 (0-5) % Baso % (Auto) 0.7 (0-3) % Neut # (Auto) 3.27 (1.80-7.00) 10^3/uL Lymph # (Auto) 0.46 L (1.00-4.80) 10^3/uL [place] # (Auto) 0.56 (0.00-0.80) 10^3/uL Eos # (Auto) 0.16 (0.00-0.45) 10^3/uL Baso # (Auto) 0.03 10^3/uL Add Manual Diff Neutrophils % (Manual) (35-85) % Band Neutrophils % Lymphocytes % (Manual) (21-55) % Monocytes % (Manual) (2-12) % Eosinophils % (Manual) (0-5) % PT 34.6 H (9.7-12.3) SEC INR 3.47 H (0.92-1.18) Sodium 131 L (136-145) mEq/L Potassium 4.5 (3.5-5.0) mEq/L Chloride 96 L (98-106) mEq/L Carbon Dioxide 29 (21-32) mmol/L BUN 8 (7-18) mg/dL Creatinine 1.0 (0.6-1.0) mg/dL Est Cr Clr Drug Dosing 49.08 mL/min Estimated GFR (MDRD) 56 L (>=60) mL/min Glucose 115 H (75-99) mg/dL Lactic Acid (0.4-2.0) mmol/L Calcium 8.8 (8.4-10.1) mg/dL Total Bilirubin (0.0-1.0) mg/dL AST (15-37) U/L ALT (12-78) U/L Alkaline Phosphatase (46-116) U/L Total Protein (6.4-8.2) g/dL Albumin (3.4-5.0) g/dL Amylase (25-115) U/L Urine Color (YELLOW) Urine Appearance (CLEAR) Urine pH (4.5-8.0) Ur Specific [place] (1.003-1.020) Urine Protein (NEGATIVE) mg/dL Urine Glucose (UA) (NEGATIVE) mg/dL Urine Ketones (NEGATIVE) mg/dL Urine Occult Blood (NEGATIVE) Urine Nitrite (NEGATIVE) Urine Bilirubin (NEGATIVE) Urine Urobilinogen (0.2-1.0) EU/dL Ur Leukocyte Esterase (NEGATIVE) Urine RBC (0-5) /HPF Urine WBC (0-5) /HPF Ur Squamous Epith Cells (NOT SEEN) /HPF Urine Bacteria (NOT SEEN) /HPF Urinalysis Comment Blood Type Gel Antibody Screen Crossmatch 01/02/21 Range/Units 13:12 WBC (5.0-10.0) 10^3/uL RBC (4.00-5.50) 10^6/uL Hgb 7.0 L* (12.0-16.0) g/dL Hct (37.0-47.0) % MCV (82.0-94.0) fL MCH (27.0-32.0) pg MCHC (33.0-38.0) g/dL RDW Coeff of Mookie (11.0-15.0) % Plt Count (150-400) 10^3/uL Neut % (Auto) (35-85) % Lymph % (Auto) (10-55) % [place] % (Auto) (0-16) % Eos % (Auto) (0-5) % Baso % (Auto) (0-3) % Neut # (Auto) (1.80-7.00) 10^3/uL Lymph # (Auto) (1.00-4.80) 10^3/uL [place] # (Auto) (0.00-0.80) 10^3/uL Eos # (Auto) (0.00-0.45) 10^3/uL Baso # (Auto) 10^3/uL Add Manual Diff Neutrophils % (Manual) (35-85) % Band Neutrophils % Lymphocytes % (Manual) (21-55) % Monocytes % (Manual) (2-12) % Eosinophils % (Manual) (0-5) % PT (9.7-12.3) SEC INR (0.92-1.18) Sodium (136-145) mEq/L Potassium (3.5-5.0) mEq/L Chloride (98-106) mEq/L Carbon Dioxide (21-32) mmol/L BUN (7-18) mg/dL Creatinine (0.6-1.0) mg/dL Est Cr Clr Drug Dosing mL/min Estimated GFR (MDRD) (>=60) mL/min Glucose (75-99) mg/dL Lactic Acid (0.4-2.0) mmol/L Calcium (8.4-10.1) mg/dL Total Bilirubin (0.0-1.0) mg/dL AST (15-37) U/L ALT (12-78) U/L Alkaline Phosphatase (46-116) U/L Total Protein (6.4-8.2) g/dL Albumin (3.4-5.0) g/dL Amylase (25-115) U/L Urine Color (YELLOW) Urine Appearance (CLEAR) Urine pH (4.5-8.0) Ur Specific [place] (1.003-1.020) Urine Protein (NEGATIVE) mg/dL Urine Glucose (UA) (NEGATIVE) mg/dL Urine Ketones (NEGATIVE) mg/dL Urine Occult Blood (NEGATIVE) Urine Nitrite (NEGATIVE) Urine Bilirubin (NEGATIVE) Urine Urobilinogen (0.2-1.0) EU/dL Ur Leukocyte Esterase (NEGATIVE) Urine RBC (0-5) /HPF Urine WBC (0-5) /HPF Ur Squamous Epith Cells (NOT SEEN) /HPF Urine Bacteria (NOT SEEN) /HPF Urinalysis Comment Blood Type Gel Antibody Screen Crossmatch [facility]UCINA Results - Last 24 hrs: Microbiology 01/01/21 17:05 Urine Culture - Preliminary Urine, Voided Gram Negative Rods Med Orders - Current: Current Medications Acetaminophen (Tylenol) 650 mg PO Q4H PRN PRN Reason: Pain (Mild 1-3)/fever Carvedilol (Coreg) 6.25 mg PO BID [facility] Last Admin: 01/02/21 07:34 Dose: 6.25 mg Documented by: Ceftriaxone Sodium (Rocephin) 1 gm IVPUSH Q24H [facility] Last Admin: 01/01/21 20:41 Dose: 1 gm Documented by: Cyanocobalamin (Vitamin B12) 2,000 mcg PO DAILY [facility] Last Admin: 01/02/21 07:41 Dose: Not Given Documented by: Docusate Sodium (Colace) 100 mg PO BID PRN PRN Reason: Constipation Furosemide (Lasix) 20 mg PO DAILY PRN PRN Reason: Edema Pantoprazole Sodium 40 mg/ (Sodium Chloride) 100 mls @ 20 mls/hr IV .CONTINUOUS [facility] Losartan Potassium (Cozaar) 12.5 mg PO DAILY [facility] Last Admin: 01/02/21 07:34 Dose: 12.5 mg Documented by: Magnesium Oxide (Magnesium Oxide) 500 mg PO DAILY [facility] Last Admin: 01/02/21 07:40 Dose: Not Given Documented by: Morphine Sulfate (Morphine) 2 mg IVPUSH Q2H PRN PRN Reason: Pain (severe 7-10) Phytonadione [ Vitamin K] 200 Mcg # Own Med# 200 mcg PO DAILY [facility] Potassium Chloride (20 Meq #Own Med#) 30 meq PO BID [facility] Last Admin: 01/02/21 07:33 Dose: 30 meq Documented by: Ondansetron HCl (Zofran) 4 mg IV Q6H PRN PRN Reason: Nausea/Vomiting Oxycodone/Acetaminophen (Percocet 325-5 Mg) 1 tab PO Q4H PRN PRN Reason: Pain (moderate 4-6) Last Admin: 01/02/21 09:27 Dose: 1 tab Documented by: Pantoprazole Sodium (Protonix) 40 mg PO DAILY@0700 [facility] Last Admin: 01/02/21 06:15 Dose: 40 mg Documented by: Thiamine HCl (Vitamin B-1) 250 mg PO DAILY [facility] Last Admin: 01/02/21 07:40 Dose: Not Given Documented by: Discontinued Medications Sodium Chloride (Normal Saline) 1,000 mls @ 1,000 mls/hr IV .BOLUS ONE Stop: 01/01/21 16:01 Last Admin: 01/01/21 15:38 Dose: 1,000 mls/hr Documented by: Phytonadione 5 mg/ Sodium (Chloride) 50.5 mls @ 150 mls/hr IV NOW ONE Stop: 01/02/21 14:36 Iopamidol (Isovue-370 (76%)) 100 ml IVPUSH ONETIME ONE Stop: 01/01/21 15:35 Last Admin: 01/01/21 15:35 Dose: 100 ml Documented by: Morphine Sulfate (Morphine) 4 mg IVPUSH ONETIME ONE Stop: 01/01/21 15:49 Last Admin: 01/01/21 15:54 Dose: 4 mg Documented by: Ondansetron HCl (Zofran) 4 mg IVPUSH NOW STA Stop: 01/01/21 15:49 Last Admin: 01/01/21 15:53 Dose: 4 mg Documented by: Pantoprazole Sodium (Protonix Iv) 40 mg IVPUSH Q30M [facility] Stop: 01/02/21 14:11 Phytonadione (Aquamephyton) 5 mg SUBCUT NOW ONE Stop: 01/02/21 14:33 - Exam General: Reports: Alert, Oriented, Cooperative HEENT: Reports: Pupils Equal, Pupils Reactive, Mucous Membr. Moist/[place] Neck: Reports: Supple, Trachea Midline, No JVD Lungs: Reports: Clear to Auscultation, Normal Respiratory Effort Cardiovascular: Reports: Regular Rate, Regular Rhythm GI/Abdominal Exam: Normal Bowel Sounds, Soft, Non-Tender Back Exam: Reports: Normal Inspection Extremities: Normal Inspection, Other (left hip pain) Skin: Reports: Warm, Dry, Intact, Ecchymosis (left medial distal thigh) Neurological: Reports: No New Focal Deficit Psy/Mental Status: Reports: Alert, Normal Affect, Normal Mood
[2021-01-02] MEDS: Pantoprazole 40 MG Vial IVPUSH SCH ×2 (15:05→15:44)
[2021-01-02] MEDS ORDERED: Sodium Chloride 0.9% 250 ML IV SCH (15:15)
[2021-01-02 15:48] VITALS: BP 114/68
[2021-01-02 15:54] VITALS: PULSE 81
== END 2021-01-02 16:15 ==
LOC: CC.ED 14:20 → CC.MS 18:08 → UNDOADMOB 18:08 → CC.MS 19:56 → UNDODISOB 01-02 16:15
PROVIDERS: ADMIT Nurse Practitioner; ATTEND Family Medicine
DX: M25.552 Pain in left hip (principal); I48.91 Unspecified atrial fibrillation; I10 Essential (primary) hypertension; K92.2 Gastrointestinal hemorrhage, unspecified; N30.00 Acute cystitis without hematuria; D64.9 Anemia, unspecified; G47.30 Sleep apnea, unspecified; J45.909 Unspecified asthma, uncomplicated; Z88.1 Allergy status to other antibiotic agents; Z86.74 Personal history of sudden cardiac arrest; Z95.810 Presence of automatic (implantable) cardiac defibrillator; Z95.1 Presence of aortocoronary bypass graft; Z95.0 Presence of cardiac pacemaker; Z95.818 Presence of other cardiac implants and grafts; Z98.84 Bariatric surgery status; Z79.01 Long term (current) use of anticoagulants; Z98.890 Other specified postprocedural states; W10.9XXA Fall (on) (from) unspecified stairs and steps, initial encounter; S32.592A Other specified fracture of left pubis, initial encounter for closed fracture
CPT/HCPCS: 36415; 36430; 70450; 71260; 73502; 74177; 80048; 80053; 81001; 82150; 83605; 85018; 85025; 85610; 86850; 86900; 86901; 86920; 86922; 87086; 87088; 87186; 96365; 96372; 96375; 99285; A9270; C9113; G0378; J0696; J2270; J2405; J3430; J7030; J7050; P9016; Q9967; 96374

== ENCOUNTER 2021-12-14 13:59 | Emergency (ER) | payer MEDICARE, BC ==
[2021-12-14 14:07] VITALS: PULSE 80
[2021-12-14 14:13] VITALS: BP 148/86
== END 2021-12-14 14:55 | disposition home or self-care (01) ==
LOC: CC.ED 13:59
DX: H93.11 Tinnitus, right ear (principal); H66.91 Otitis media, unspecified, right ear; I48.91 Unspecified atrial fibrillation; I10 Essential (primary) hypertension; J45.909 Unspecified asthma, uncomplicated; K21.9 Gastro-esophageal reflux disease without esophagitis; M19.90 Unspecified osteoarthritis, unspecified site; Z88.1 Allergy status to other antibiotic agents; Z79.01 Long term (current) use of anticoagulants; Z79.899 Other long term (current) drug therapy
CPT/HCPCS: 99283

== ENCOUNTER 2023-08-20 12:51 | Emergency (ER) | payer MEDICARE, BC ==
[2023-08-20 13:00] VITALS: BP 144/85; PULSE 81
== END 2023-08-20 14:20 | disposition home or self-care (01) ==
LOC: CC.ED 12:51
DX: S63.502A Unspecified sprain of left wrist, initial encounter (principal); M19.032 Primary osteoarthritis, left wrist; K21.9 Gastro-esophageal reflux disease without esophagitis; I48.91 Unspecified atrial fibrillation; Z88.1 Allergy status to other antibiotic agents; Z79.01 Long term (current) use of anticoagulants; Z79.899 Other long term (current) drug therapy; W18.30XA Fall on same level, unspecified, initial encounter
CPT/HCPCS: 73110-RT; 99283

== ENCOUNTER 2025-08-14 16:33 | Emergency (ER) | payer MEDICARE, BC ==
[2025-08-14 16:48] VITALS: BP 146/88; PULSE 80
[2025-08-14 17:17] LABS: BASOPHILS ABSOLUTE AUTO 0.03 10^3/uL (0.00-0.50); BASOPHILS PERCENT AUTO 0.7 % (0-1); EOSINOPHILS ABSOLUTE AUTO 0.05 10^3/uL (0.00-1.50); EOSINOPHILS PERCENT AUTO 1.2 % (0-6); IMMATURE GRAN ABSOLUTE AUTO 0.00 10^3/uL (0.00-0.49); IMMATURE GRAN PERCENT AUTO 0.0 % (0.0-4.9); LYMPHOCYTES ABSOLUTE AUTO 0.68 10^3/uL (0.60-5.00); LYMPHOCYTES PERCENT AUTO 16.5 % (24-44); MONOCYTES ABSOLUTE AUTO 0.54 10^3/uL (0.00-1.50); MONOCYTES PERCENT AUTO 13.1 % (0-10); NEUTROPHILS ABSOLUTE AUTO 2.82 x10^3/uL (1.80-8.00); NEUTROPHILS PERCENT AUTO 68.5 % (41-71); PLATELET COUNT,PLT 130 10^3/uL (150-400); RED BLOOD CELL COUNT 4.21 x10^6/uL (4.00-5.50); WHITE BLOOD CELL COUNT,WBC 4.1 10^3/uL (4.0-11.0)
[2025-08-14 17:17] LABS: GLUCOSE,URINE 500 mg/dL (NEGATIVE); OCCULT BLOOD,URINE TRACE-INTACT (NEGATIVE)
[2025-08-14 17:21] LABS: APPEARANCE,URINE SLIGHTLY CLOUDY (CLEAR)
[2025-08-14 17:25] LABS: WBC CLUMPS,URINE OCCASIONAL /HPF (NOT SEEN)
[2025-08-14 17:32] LABS: INR 1.95 (0.92-1.18)
[2025-08-14 17:33] LABS: ALANINE AMINOTRANSFERASE,ALT 14 U/L (12-78); ASPARTATE AMNIOTRANSFERASE,AST 25 U/L (15-37); BILIRUBIN TOTAL 0.8 mg/dL (0.0-1.0); BLOOD UREA NITROGEN,BUN 10 mg/dL (7-18); CARBON DIOXIDE,CO2 29 mmol/L (21-32); CHLORIDE,CL 97 mEq/L (98-106); CREATININE 0.7 mg/dL (0.6-1.0); EST CRCL DRUG DOSING (CG) 62.74 mL/min; GLUCOSE RANDOM 90 mg/dL (75-99); POTASSIUM,K 4.4 mEq/L (3.5-5.0); PROTEIN TOTAL,TP 7.6 g/dL (6.4-8.2); SODIUM,NA 133 mEq/L (136-145)
[2025-08-14 17:35] LABS: ESTIMATED GFR 94 mL/min (>=60)
[2025-08-14 17:45] LABS: PTT,PARTIAL THROMBOPLSTIN TIME 35.3 SEC (20.0-30.0)
== END 2025-08-14 18:30 | disposition home or self-care (01) ==
LOC: CC.ED 16:33
DX: G45.9 Transient cerebral ischemic attack, unspecified (principal); M54.12 Radiculopathy, cervical region; N30.01 Acute cystitis with hematuria; I48.91 Unspecified atrial fibrillation; K21.9 Gastro-esophageal reflux disease without esophagitis; Z88.1 Allergy status to other antibiotic agents; Z79.899 Other long term (current) drug therapy
CPT/HCPCS: 36415; 70450; 71046; 80053; 81001; 83735; 84484; 85025; 85610; 85730; 86140; 87086; 87088; 87186; 93005; 93010; 99284; 99285